=== PATIENT | female | born 1960 | race Caucasian/White ===

== ENCOUNTER 2025-04-17 12:21 | Inpatient (IN) | payer MEDICARE, OTHER ==
--- NOTE | 2025-04-17 12:29 | ERPHSYRPT ---
- History of Present Illness Time Seen by Provider: 04/17/25 12:24 Historian: patient, EMS Exam Limitations: no limitations Physician History: 64-year-old female presents to the emergency room with abdominal pain and nausea patient reports the pain started last night she reports she has a hernia that she has not had repaired she is having pain in the hernia site she reports she feels like it is exploding in her abdomen denies any diarrhea denies any chest pain or shortness of breath denies any fevers or chills denies any urinary symptoms patient arrived by EMS she has been given Toradol IV now in ED for further eval Timing/Duration: yesterday Activities at Onset: none Abdominal Pain Onset Location: RLQ Pain Radiation: no radiation Severity of Pain-Max: mild Severity of Pain-Current: mild Modifying Factors: Worsens With: lying down, vomiting, position Allergies/Adverse Reactions: Penicillins Allergy (Verified 04/17/25 12:30) Home Medications: Albuterol 2.5 mg/3 ml Neb [Proventil 2.5 mg/3 ml Neb] 3 ml IH Q4HPRN PRN 04/17/25 [History] Albuterol Sulfate [Albuterol Sulfate Hfa] 2 puffs IH Q6HPRN PRN 04/17/25 [History] Azelastine/Fluticasone [Azelastin-Flutic 137-50Mcg Spr] 1 spray NS DAILY 04/17/25 [History] Budesonide/Formoterol Fumarate [Budesonide-Formoterol 160-4.5] 2 puffs IH BID 04/17/25 [History] Buspirone HCl 15 mg PO TID 04/17/25 [History] Cholecalciferol (Vitamin D3) [Vitamin D3] 1 tab PO DAILY 04/17/25 [History] Clonidine HCl 0.1 mg [Clonidine 0.1 mg Tablet] 0.1 mg PO HS 04/17/25 [History] Fluoxetine HCl 60 mg PO DAILY 04/17/25 [History] Fluticasone Furoate 2 spray IH DAILY 04/17/25 [History] Furosemide [Lasix] 20 mg PO DAILY 04/17/25 [History] Guaifenesin 600 mg ER [Mucinex 600MG ER Tabs] 1,200 mg PO BID 04/17/25 [History] Loratadine 10 mg [Claritin 10 mg] 10 mg PO DAILY 04/17/25 [History] Montelukast Sodium 10 mg [Singulair 10 MG] 10 mg PO DAILY 04/17/25 [History] Pantoprazole 20 mg [Protonix 20MG Tablet] 20 mg PO DAILY 04/17/25 [History] Potassium Chloride 40 meq PO DAILY 04/17/25 [History] Roflumilast [Daliresp] 500 mcg PO DAILY 04/17/25 [History] Simvastatin 20Mg [Zocor 20Mg] 20 mg PO QPM 04/17/25 [History] Theophylline Anhydrous [Theophylline ER] 300 mg PO BID 04/17/25 [History] Tiotropium [place] Inhaler [Spiriva 18 Mcg/Cap Inhaler] 1 cap IH DINNER 04/17/25 [History] - Review of Systems Constitutional: No Fever, No Chills Eyes: No Symptoms Ears, Nose, & Throat: No Symptoms Respiratory: No Cough, No Dyspnea Cardiac: No Chest Pain, No Edema, No Syncope Abdominal/Gastrointestinal: Abdominal Pain, Nausea Genitourinary Symptoms: No Dysuria Musculoskeletal: No Back Pain, No Neck Pain Skin: No Rash Neurological: No Dizziness, No Focal Weakness, No Sensory Changes Psychological: No Symptoms Endocrine: No Symptoms All Other Systems: Reviewed and Negative - Nursing Vital Signs Nursing Vital Signs: Initial Vital Signs Temperature 97.8 F 04/17/25 12:24 Pulse Rate 91 H 04/17/25 12:24 Respiratory Rate 20 04/17/25 12:24 Blood Pressure 167/130 04/17/25 12:24 O2 Sat by Pulse Oximetry 98 04/17/25 12:24 Pain Scale Pain Intensity 6 - Physical Exam General Appearance: no apparent distress, alert Eye Exam: PERRL/EOMI, eyes nml inspection Ears, Nose, Throat Exam: normal ENT inspection, pharynx normal, moist mucous membranes Neck Exam: normal inspection, non-tender, supple, full range of motion Respiratory Exam: normal breath sounds, lungs clear, No respiratory distress Cardiovascular Exam: regular rate/rhythm, normal heart sounds Gastrointestinal/Abdomen Exam: hernia, other (Large abdomen is obese with a hernia to the right lower quadrant), No tenderness, No mass Back Exam: normal inspection, normal range of motion, No CVA tenderness, No vertebral tenderness Extremity Exam: normal inspection, normal range of motion, pelvis stable Neurologic Exam: alert, oriented x 3, cooperative, normal mood/affect, nml cerebellar function, sensation nml, No motor deficits Skin Exam: normal color, warm, dry SpO2 Interpretation: normal SpO2: 98 O2 Delivery: Room Air - Course Nursing assessment & vital signs reviewed: Yes EKG Interpreted by Me: RATE (88), Sinus Rhythm (88), Non-specific ST Changes (no STEMI) Ordered Tests: Active Orders 24 hr Category Date Time Status Bedrest ROUTINE Activity 04/17/25 15:24 Active Admit as Inpatient ROUTINE Care 04/17/25 15:24 Active Call Admit Doctor for Orders ON ADMISSION Care 04/17/25 15:24 Active Speedometer Inspector ROUTINE Care 04/17/25 15:24 Active Code Status Order ROUTINE Care 04/17/25 15:24 Active EKG-ER Only STAT Care 04/17/25 15:11 Completed IV Insertion STAT Care 04/17/25 12:25 Active Ice Pack, Apply PRN Care 04/17/25 12:27 Active NGT [Gastric Tube Insertion] STAT Care 04/17/25 14:58 Active POCT Glucose Check ONCE Care 04/17/25 15:24 Active Telemetry q6h Care 04/17/25 15:24 Active Telemetry q6h Care 04/17/25 15:24 Active ACO SDOH Referral ONCE Cons 04/17/25 12:42 Active NPO Diet 04/17/25 15:24 Active ABDOMEN AND PELVIS W CONTRAST [CT] Stat Exams 04/17/25 12:25 Completed CHEST 1 VIEW (PORTABLE) Stat Exams 04/17/25 14:55 Taken BLOOD CULTURE Stat Lab 04/17/25 15:31 Received BLOOD CULTURE Stat Lab 04/17/25 15:55 Ordered CBC W DIFF Stat Lab 04/17/25 12:35 Completed CMP Stat Lab 04/17/25 12:35 Completed LIPASE Stat Lab 04/17/25 12:35 Completed Lactic Acid Stat Lab 04/17/25 12:25 Completed PROTIME WITH INR Stat Lab 04/17/25 15:31 Received PTT Stat Lab 04/17/25 15:31 Received UA W/RFX UR CULTURE Stat Lab 04/17/25 12:25 Received Pulse Oximetry CONTINUOUS RT 04/17/25 15:24 Active Respiratory Therapy Consult ONCE RT 04/17/25 15:24 Completed Transfer Order Routine Transfer 04/17/25 Ordered Medication Summary Generic Name Dose Route Start Last Admin Trade Name Jamal PRN Reason Stop Dose Admin Sodium Chloride 1,000 mls @ 100 mls/hr 04/17/25 15:00 04/17/25 15:25 Sodium Chloride 0.9% 1000 Ml IV 05/17/25 14:59 100 mls/hr .Q10H THANIA Administration Discontinued Medications Generic Name Dose Route Start Last Admin Trade Name Jamal PRN Reason Stop Dose Admin Sodium Chloride 1,000 mls @ 999 mls/hr 04/17/25 12:25 04/17/25 13:41 Sodium Chloride 0.9% 1000 Ml IV 04/17/25 13:25 Infused .Q1H1M STA Infusion Sodium Chloride Confirm 04/17/25 12:33 Sodium Chloride 0.9% 1000 Ml Administered 04/17/25 12:34 Dose 1,000 mls @ ud .ROUTE .STK-MED ONE Ceftriaxone Sodium 1 gm in 100 mls @ 200 mls/hr 04/17/25 14:48 04/17/25 16:07 Rocephin 1 Gm / 100 Ml Nacl IV 04/17/25 15:17 200 mls/hr STAT ONE Administration Metronidazole 500 mg in 100 mls @ 200 mls/hr 04/17/25 14:48 Flagyl 500 Mg Ivpb IV 04/17/25 15:17 STAT STA Ceftriaxone Sodium Confirm 04/17/25 15:10 Rocephin 1 Gm / 100 Ml Nacl Administered 04/17/25 15:11 Dose 1 gm in 100 mls @ ud IV .STK-MED ONE Morphine Sulfate 2 mg 04/17/25 12:25 04/17/25 12:38 Morphine Sulfate 2 Mg/Ml Inj IV 04/17/25 12:26 2 mg STAT ONE Administration Morphine Sulfate Confirm 04/17/25 12:32 Morphine Sulfate 2 Mg/Ml Inj Administered 04/17/25 12:33 Dose 2 mg .ROUTE .STK-MED ONE Morphine Sulfate 4 mg 04/17/25 14:48 04/17/25 14:53 Morphine Sulfate 4 Mg/Ml Injection IV 04/17/25 14:49 4 mg STAT ONE Administration Morphine Sulfate Confirm 04/17/25 14:52 Morphine Sulfate 4 Mg/Ml Injection Administered 04/17/25 14:53 Dose 4 mg .ROUTE .STK-MED ONE Ondansetron HCl 4 mg 04/17/25 12:25 04/17/25 12:38 Ondansetron Hcl 4 Mg/2 Ml Vial IV 04/17/25 12:26 4 mg STAT ONE Administration Ondansetron HCl Confirm 04/17/25 12:32 Ondansetron Hcl 4 Mg/2 Ml Vial Administered 04/17/25 12:33 Dose 4 mg .ROUTE .STK-MED ONE Lab/Rad Data: Laboratory Result Diagrams 04/17/25 12:35 04/17/25 12:35 Laboratory Results 04/17/25 04/17/25 04/17/25 Range/Units 12:35 12:35 12:25 WBC 14.4 H (3.98-10.04) x10^3/uL RBC 4.31 (3.93-5.22) x10^6/uL Hgb 13.6 (11.2-15.7) g/dL Hct 42.4 (34.1-44.9) % MCV 98.4 H (79.4-94.8) fL MCH 31.6 (25.6-32.2) pg MCHC 32.1 L (32.2-35.5) g/dL RDW 13.3 (11.7-14.4) % Plt Count 219 (182-369) x10^3/uL MPV 9.8 (9.4-12.3) fL Gran % 92.6 H (34.0-71.1) % Immature Gran % (Auto) 0.6 H (0.001-0.429) % Nucleat RBC Rel Count 0.0 (0.00-0.2) % Eos # (Auto) 0.01 L (0.04-0.36) x10^3/uL Immature Gran # (Auto) 0.09 H (0.001-0.031) x10^3u/L Absolute Lymphs (auto) 0.50 L (1.18-3.74) x10^3/uL Absolute Monos (auto) 0.42 (0.24-0.86) x10^3/uL Absolute Nucleated RBC 0.00 (0.00-0.012) x10^3u/L Lymphocytes % 3.5 L (19.3-51.7) % Monocytes % 2.9 L (4.7-12.5) % Eosinophils % 0.1 L (0.7-5.8) % Basophils % 0.3 (0.1-1.2) % Absolute Granulocytes 13.29 H (1.56-6.13) x10^3/uL Basophils # 0.05 (0.01-0.08) x10^3/uL Sodium 139 (135-145) mmol/L Potassium 4.0 (3.5-5.1) mmol/L Chloride 98 (98-107) mmol/L Carbon Dioxide 32 H (22-30) mmol/L Anion Gap 12.1 (5-15) MEQ/L BUN 18 H (7-17) mg/dL Creatinine 0.63 (0.52-1.04) mg/dL Estimated GFR 99.6 ML/MIN Glucose 158 H (74-106) mg/dL Lactic Acid 1.0 (0.4-2.0) Calcium 9.9 (8.4-10.2) mg/dL Total Bilirubin 0.60 (0.2-1.3) mg/dL AST 20 (14-36) U/L ALT 11 (0-35) U/L Alkaline Phosphatase 99 (38-126) U/L Serum Total Protein 8.1 (6.3-8.2) g/dL Albumin 4.5 (3.5-5.0) g/dL Lipase 35 (23-300) U/L Slides for Path Review YES - Progress Progress Note: 04/17/25 15:00 Discussed case with Sang Mendes patient records recommend to have IV fluids antibiotics NG tube placement for an incarcerated hernia will need to go to the OR 04/17/25 15:22 Spoke with the hospitalist Dr. Zafar who accepts the patient to their service - Departure Departure Disposition: In-patient Admission Clinical Impression: Incarcerated hernia Condition: Good Critical Care Time: No
[2025-04-17] MEDS ORDERED: Zofran 4 MG/2 ML VIAL ONE (12:32)
[2025-04-17] MEDS ORDERED: MORPHINE SULFATE 2 MG INJ ONE (12:32)
[2025-04-17] MEDS: Zofran 4 MG/2 ML VIAL IV ONE (12:38)
[2025-04-17] MEDS: MORPHINE SULFATE 2 MG INJ IV ONE (12:38)
[2025-04-17 12:41] LABS: BASOPHIL % 0.3 % (0.1-1.2); Basophil (Absolute #) 0.05 x10^3/uL (0.01-0.08); Eosinophil (Absolute #) 0.01 x10^3/uL (0.04-0.36); Hematocrit 42.4 % (34.1-44.9); Hemoglobin 13.6 g/dL (11.2-15.7); IMMATURE GRAN # 0.09 x10^3u/L (0.001-0.031); IMMATURE GRAN % 0.6 % (0.001-0.429); Lymphocyte (Absolute #) 0.50 x10^3/uL (1.18-3.74); Mean Corpuscular Hemoglobin 31.6 pg (25.6-32.2); Mean Corpuscular Hgb Concent. 32.1 g/dL (32.2-35.5); Monocyte (Absolute #) 0.42 x10^3/uL (0.24-0.86); NUCLEATED RBC # 0.00 x10^3u/L (0.00-0.012); NUCLEATED RBC % 0.0 % (0.00-0.2); Platelet Count 219 x10^3/uL (182-369); Red Blood Count 4.31 x10^6/uL (3.93-5.22); White Blood Count 14.4 x10^3/uL (3.98-10.04)
[2025-04-17 12:56] LABS: Calcium 9.9 mg/dL (8.4-10.2); Carbon Dioxide 32.0 mmol/L (22-30); Creatinine 1 0.63 mg/dL (0.52-1.04); EST GLOMERULAR FILTRATION RATE 99.6 ML/MIN; Glucose 158.0 mg/dL (74-106); Potassium 4.0 mmol/L (3.5-5.1); SGOT/AST 20.0 U/L (14-36); SGPT/ALT 11.0 U/L (0-35); Total Protein 8.1 g/dL (6.3-8.2)
[2025-04-17 14:30] LABS: Slide Review 1 YES
--- NOTE | 2025-04-17 14:30 | XRAY ---
CLINICAL HISTORY: abd pain, hernia r/o complication COMPARISON: No prior studies available for comparison. TECHNIQUE: CT of the abdomen and pelvis was performed with contrast 80 cc Isovue 370, with the following protocol: axial images with, and reconstructed coronal and sagittal images. One of the following dose reduction techniques was utilized for this exam: Automated exposure control, adjustment of the mA and/or kV according to patient size, and use of iterative reconstruction. FINDINGS: Lower chest cuts: Bilateral emphysema with right basal atelectatic changes, sequel of prior inflammatory process. Abdomen: Liver: Diffuse hypoattenuation of the liver parenchyma. No focal lesions, cysts, or masses were identified. Hepatic vasculature and biliary ducts are unremarkable. Gallbladder and Biliary System: surgically removed. The common bile duct is normal in caliber without dilation. Pancreas: Pancreatic head, body, and tail are visualized and appear normal in size and density. No pancreatic masses or calcifications were noted. The pancreatic duct is not dilated. Spleen: Normal in size, shape, and density. No splenic lesions or masses were identified. Appendix: Not visualized. Kidneys and Adrenal Glands: Both kidneys are normal in size, shape, and position. Cortical thickness is within normal limits. No renal calculi or hydronephrosis. Adrenal glands are unremarkable with no evidence of masses or hyperplasia. Pelvis: Urinary Bladder: Normal in contour and wall thickness. No intraluminal lesions identified. Uterus: Normal in size and contour. No masses or abnormal thickening. Ovaries: Not well visualized, but no gross abnormalities noted. Vagina: Normal in contour and wall thickness. Cervix: No evidence of mass or abnormal thickening. Peritoneal and Retroperitoneal Structures: No free fluid or abnormal fluid collections were identified within the abdomen or pelvis. No lymphadenopathy was noted. Bowel: A large right-sided inguinal hernia sac with fat and bowel content. it shows mild intrahernial fatty stranding as well as dilatation of the jejunal bowel segment seen inside, no evidence of intrahernial sac free fluid collection, The efferent and afferent collapsed bowel loops are seen along the hernial orifice, in keeping with an incarcerated right-sided inguinal hernia with subsequent dilatation of the proximal jejunal bowel loops and collapse of ileal bowel loops and whole colon. There is normal mural enhancement of the incarcerated herniated small bowel segment; however, the appearance of two collapsed efferent and afferent bowel loops at the entry point of the hernia could result in a form of closed-loop obstruction. A tiny fat-containing non-complicated periumbilical hernia. Minimal cirfumerntial unform mural thickening of pylorus likely of inflammtory origin. Multiple non complicated colonic diverticulosi. SLiding hiatus hernia is joshua noted. Bones and Soft Tissues: Diffuse osteopenia and spondylosis of scanned spine. Intrathecal tube is noted.correlate clinically No fractures or abnormal masses were identified. IMPRESSION: 1. Picture suggestive of right-sided incarcerated inguinal hernia with omentum and small bowel content and subsequent small bowel obstruction. However, the appearance of two collapsed efferent and afferent bowel loops at the entry point of the hernia could result in a form of closed-loop obstruction, together with luminal dilatation and fatty stranding within the hernia sac ( however, there is normal enhancement of the bowel wall), which can suggest impending strangulation. Advise urgent surgical consultation. 2. A tiny fat-containing non-complicated periumbilical hernia. 3. Minimal circumferential uniform mural thickening of the pylorus is likely of inflammatory origin. Correlate clinically and further UGE if clinically warranted. 4. Multiple non-complicated colonic diverticulosis. 5. A small sliding hiatus hernia. 6. Fatty liver. 7. Bilateral emphysema with bilateral lower lobar more along right basal atelectatic changes, sequel of prior inflammatory process. Electronically Signed by: Otilio Will MD. (04/17/2025 14:28:16 EST)
[2025-04-17] MEDS ORDERED: MORPHINE SULFATE 4 MG INJ ONE (14:52)
[2025-04-17] MEDS: MORPHINE SULFATE 4 MG INJ IV ONE (14:53)
[2025-04-17] MEDS ORDERED: ROCEPHIN 1 GM / 100 ML NaCl 1 GM/100 ML IVPB IV ONE (15:10)
[2025-04-17] MEDS: ROCEPHIN 1 GM / 100 ML NaCl 1 GM/100 ML IVPB IV ONE (16:07)
[2025-04-17 16:12] LABS: INR 0.95 (0.8-3.0); PROTIME 10.7 SECONDS (9.4-12.5); PTT 26.2 SECONDS (25.1-36.5)
--- NOTE | 2025-04-17 16:18 | PCM.HP ---
<RENETTA CERDA - Last Filed: 04/17/25 16:13> History of Present Illness - Chief Complaint Chief Complaint: incarcerated hernia Date: 04/17/25 History of Present Illness: is a 64 year old female with a past medical history of COPD (on 4L oxygen baseline), asthma, depression, lung cancer treated with radiation in 2023, and an eight-year history of a known but unrepaired right inguinal hernia, active smoker, approximately half a pack per day who presented to the ED on 04-17-25 with acute right lower quadrant pain that began this morning. She describes the pain as sharp, constant, and 10/10 on the numerical pain scale. The pain is centered at her chronic hernia site and feels to her as though something is exploding inside. She also reported nausea, vomiting, and diarrhea, along with increased shortness of breath above her usual baseline. She denied fever, chills, or urinary symptoms. On arrival to the ED, she was significantly hypertensive at 180/105 and maintained on four liters of oxygen. Initial labs remarkable for leukocytosis with WBC 14.4, CO2 32, BUN 18. CT abdomen/pelvis revealed a right-sided incarcerated inguinal hernia containing omentum and small bowel with associated small bowel obstruction. Radiology described collapsed afferent and efferent loops at the hernia neck concerning for a developing closed-loop obstruction with impending strangulation, though bowel wall enhancement remained preserved. Additional findings included a tiny non-complicated periumbilical hernia, mild inflammatory pyloric thickening, uncomplicated colonic diverticulosis, fatty liver, a small sliding hiatal hernia, and emphysematous changes with right- predominant basal atelectasis consistent with her COPD. The case was discussed with on-call surgeon Dr. Sang Mnedes, who recommended NG tube placement, continuation of IV fluids and antibiotics, and urgent operative repair tonight. She received IV morphine for pain, ondansetron for nausea, a one-liter IV fluid bolus, and was started on IV ceftriaxone and metronidazole. - Review of Systems Constitutional: No Symptoms Eyes: No Symptoms Ears, Nose, & Throat: No Symptoms Respiratory: Short Of Breath Cardiac: No Symptoms Abdominal/Gastrointestinal: Abdominal Pain (RLQ), Nausea, Vomiting, Diarrhea Genitourinary Symptoms: No Symptoms Musculoskeletal: No Symptoms Neurological: No Symptoms Psychological: No Symptoms Endocrine: No Symptoms Hematologic/Lymphatic: No Symptoms Immunological/Allergic: No Symptoms Medications & Allergies Home Medications: Home Medication List Albuterol 2.5 mg/3 ml Neb [Proventil 2.5 mg/3 ml Neb] 3 ml IH Q4HPRN PRN 04/17/25 [History Confirmed 04/17/25] Albuterol Sulfate [Albuterol Sulfate Hfa] 2 puffs IH Q6HPRN PRN 04/17/25 [History Confirmed 04/17/25] Azelastine/Fluticasone [Azelastin-Flutic 137-50Mcg Spr] 1 spray NS DAILY 04/17/25 [History Confirmed 04/17/25] Budesonide/Formoterol Fumarate [Budesonide-Formoterol 160-4.5] 2 puffs IH BID 04/17/25 [History Confirmed 04/17/25] Buspirone HCl 15 mg PO TID 04/17/25 [History Confirmed 04/17/25] Cholecalciferol (Vitamin D3) [Vitamin D3] 1 tab PO DAILY 04/17/25 [History Confirmed 04/17/25] Clonidine HCl 0.1 mg [Clonidine 0.1 mg Tablet] 0.1 mg PO HS 04/17/25 [History Confirmed 04/17/25] Fluoxetine HCl 60 mg PO DAILY 04/17/25 [History Confirmed 04/17/25] Fluticasone Furoate 2 spray IH DAILY 04/17/25 [History Confirmed 04/17/25] Furosemide [Lasix] 20 mg PO DAILY 04/17/25 [History Confirmed 04/17/25] Guaifenesin 600 mg ER [Mucinex 600MG ER Tabs] 1,200 mg PO BID 04/17/25 [History Confirmed 04/17/25] Ibuprofen 800 mg PO TIDPRN PRN 04/17/25 [History Confirmed 04/17/25] Loratadine 10 mg [Claritin 10 mg] 10 mg PO DAILY 04/17/25 [History Confirmed 04/17/25] Montelukast Sodium 10 mg [Singulair 10 MG] 10 mg PO DAILY 04/17/25 [History Confirmed 04/17/25] Pantoprazole 20 mg [Protonix 20MG Tablet] 20 mg PO DAILY 04/17/25 [History Confirmed 04/17/25] Potassium Chloride 40 meq PO DAILY 04/17/25 [History Confirmed 04/17/25] Roflumilast [Daliresp] 500 mcg PO DAILY 04/17/25 [History Confirmed 04/17/25] Simvastatin 20Mg [Zocor 20Mg] 20 mg PO QPM 04/17/25 [History Confirmed 04/17/25] Theophylline Anhydrous [Theophylline ER] 300 mg PO BID 04/17/25 [History Confirmed 04/17/25] Tiotropium Stitzer Inhaler [Spiriva 18 Mcg/Cap Inhaler] 1 cap IH DINNER 04/17/25 [History Confirmed 04/17/25] Allergies/Adverse Reactions: Allergies Allergy/AdvReac Type Severity Reaction Status Date / Time Penicillins Allergy Verified 04/17/25 12:30 - Past Medical History Past Medical History: Yes Respiratory History: COPD GI Medical History: Hernia Pyscho-Social History: Depression Comment: patient states she had a spot to right lung, patient did not have biopsy; however, patient had radiation treatments and states the spot is now gone - Past Surgical History Past Surgical History: Yes GI Surgical History: Cholecystectomy Female Surgical History: Section Significant Family History: cancer, stroke - Social History Smoking Status: Current every day smoker (1/2 ppd) Exposure to second hand smoke: Yes Alcohol: None Drug Use: none - Social Determinants of Health Will the patient participate in the screening: Yes Do you worry about a steady place to live?: Yes Do you have any problems with any of the following?: Pest (bugs,ants,or mice), Mold, Other In the past 12 months,have you had to go without utilities?: No Have you or anyone in your house had to go without enough: No Transportation Issues: No Has anyone in your support network made you feel unsafe?: No - Physical Exam Vital Signs: Vital Signs - 24 hr Temp Pulse Resp BP BP Pulse Ox 04/17/25 16:07 98 04/17/25 15:40 80 22 158/90 97 04/17/25 15:35 97 04/17/25 15:31 97 04/17/25 15:00 152/109 97 04/17/25 14:30 160/97 95 04/17/25 14:00 95 H 4 L 180/105 83 L 04/17/25 13:40 171/115 95 04/17/25 13:39 97 04/17/25 13:00 165/111 04/17/25 12:30 91 H 167/130 97 04/17/25 12:24 97.8 F 91 H 20 167/130 98 General Appearance: no apparent distress Neurologic Exam: alert, oriented x 3, cooperative Eye Exam: PERRL/EOMI Ears, Nose, Throat Exam: normal ENT inspection Neck Exam: normal inspection Respiratory Exam: crackles/rales Cardiovascular Exam: regular rate/rhythm, normal heart sounds Gastrointestinal/Abdomen Exam: hernia (RLQ) Pelvic Exam: not done Rectal Exam: deferred Back Exam: normal inspection Extremity Exam: normal inspection Skin Exam: normal color Results - Labs Lab/Micro Results: Lab Results-Last 24 Hours 04/17/25 04/17/25 04/17/25 Range/Units 12:25 12:35 12:35 WBC 14.4 H (3.98-10.04) x10^3/uL RBC 4.31 (3.93-5.22) x10^6/uL Hgb 13.6 (11.2-15.7) g/dL Hct 42.4 (34.1-44.9) % MCV 98.4 H (79.4-94.8) fL MCH 31.6 (25.6-32.2) pg MCHC 32.1 L (32.2-35.5) g/dL RDW 13.3 (11.7-14.4) % Plt Count 219 (182-369) x10^3/uL MPV 9.8 (9.4-12.3) fL Gran % 92.6 H (34.0-71.1) % Immature Gran % (Auto) 0.6 H (0.001-0.429) % Nucleat RBC Rel Count 0.0 (0.00-0.2) % Eos # (Auto) 0.01 L (0.04-0.36) x10^3/uL Immature Gran # (Auto) 0.09 H (0.001-0.031) x10^3u/L Absolute Lymphs (auto) 0.50 L (1.18-3.74) x10^3/uL Absolute Monos (auto) 0.42 (0.24-0.86) x10^3/uL Absolute Nucleated RBC 0.00 (0.00-0.012) x10^3u/L Lymphocytes % 3.5 L (19.3-51.7) % Monocytes % 2.9 L (4.7-12.5) % Eosinophils % 0.1 L (0.7-5.8) % Basophils % 0.3 (0.1-1.2) % Absolute Granulocytes 13.29 H (1.56-6.13) x10^3/uL Basophils # 0.05 (0.01-0.08) x10^3/uL Sodium 139 (135-145) mmol/L Potassium 4.0 (3.5-5.1) mmol/L Chloride 98 (98-107) mmol/L Carbon Dioxide 32 H (22-30) mmol/L Anion Gap 12.1 (5-15) MEQ/L BUN 18 H (7-17) mg/dL Creatinine 0.63 (0.52-1.04) mg/dL Estimated GFR 99.6 ML/MIN Glucose 158 H (74-106) mg/dL Lactic Acid 1.0 (0.4-2.0) Calcium 9.9 (8.4-10.2) mg/dL Total Bilirubin 0.60 (0.2-1.3) mg/dL AST 20 (14-36) U/L ALT 11 (0-35) U/L Alkaline Phosphatase 99 (38-126) U/L Serum Total Protein 8.1 (6.3-8.2) g/dL Albumin 4.5 (3.5-5.0) g/dL Lipase 35 (23-300) U/L Slides for Path Review YES Microbiology 04/17/25 15:55 Blood Culture Gram Stain - Final Blood Not Reportable - Radiology Impressions Radiology Exams & Impressions: Radiology Procedures Category Date Time Status ABDOMEN AND PELVIS W CONTRAST [CT] Stat Exams 04/17/25 12:25 Completed CHEST 1 VIEW (PORTABLE) Stat Exams 04/17/25 14:55 Taken Assessment/Plan (1) Incarcerated hernia Current Visit: Yes Status: Acute Assessment & Plan: -NPO. -NG tube placement for decompression per surgery. -Continue IV ceftriaxone + metronidazole. -IVF -Surgery consulted Eva Mendes- plan for surgical intervention this evening -Strict I/O and serial abdominal examinations. -Pain control -supplemental oxygen - baseline 4L - titrate as needed to maintain goal spo2> 89% Code(s): K46.0 - UNSP ABDOMINAL HERNIA WITH OBSTRUCTION, WITHOUT GANGRENE (2) Abdominal pain Current Visit: Yes Status: Acute Assessment & Plan: -2/2 to incarcerated hernia see plan above Code(s): R10.9 - UNSPECIFIED ABDOMINAL PAIN (3) Nausea vomiting and diarrhea Current Visit: Yes Status: Acute Assessment & Plan: -2/2 to incarcerated hernia -Antiemetics as needed. -NG tube decompression -Fluid and electrolyte monitoring; replace as needed Code(s): R11.2 - NAUSEA WITH VOMITING, UNSPECIFIED; R19.7 - DIARRHEA, UNSPECIFIED (4) Leukocytosis Current Visit: Yes Status: Acute Assessment & Plan: -Trend CBC daily -Continue IV ceftriaxone/flagyl -Expect improvement post-surgical correction. Code(s): D72.829 - ELEVATED WHITE BLOOD CELL COUNT, UNSPECIFIED (5) COPD (chronic obstructive pulmonary disease) Current Visit: Yes Status: Acute Assessment & Plan: -Maintain at baseline 4L O2; titrate to SpO2 > 89%. -Continue home meds -Incentive spirometry as tolerated. -Avoid sedatives that worsen respiratory drive. -Resume inhalers/nebulizers as appropriate. (6) Depression Current Visit: Yes Status: Acute Assessment & Plan: -Continue home meds s/p surgery Code(s): F32.A - DEPRESSION, UNSPECIFIED (7) History of lung cancer Current Visit: Yes Status: Acute Assessment & Plan: -s/p radiation 2023 Code(s): Z85.118 - PERSONAL HISTORY OF MALIGNANT NEOPLASM OF BRONCHUS AND LUNG (8) Smoker Current Visit: Yes Status: Acute Assessment & Plan: -Smokes 1/2 PPD advised cessation -Nicotine patch while IP VTE: SCD for now PPI: protonix Dispo: 2-3 days pending surgery eval Plan of care time spent > 40 mins Code(s): F17.200 - NICOTINE DEPENDENCE, UNSPECIFIED, UNCOMPLICATED Telemedicine Encounter - Telemedicine Encounter Telemedicine Encounter: "The entirety of this encounter was performed via Telemedicine" This visit was performed using real-time audio and video connection between my location and thepatients locationwith the assistance of a surrogateat the patients location. Written or verbal consent was obtained from the patient/guardian to perform this visit using[employer] technology. Any patient questions regarding the telemedicine interaction were answered. <CHEL PAIGE - Last Filed: 04/17/25 21:52> History of Present Illness - Chief Complaint History of Present Illness: is a 64 year old female. - Physical Exam Vital Signs: Vital Signs - 24 hr Temp Pulse Resp BP BP Pulse Ox 04/17/25 21:00 91 H 23 143/90 96 04/17/25 20:59 18 04/17/25 20:45 91 H 18 155/102 92 L 04/17/25 20:30 98.5 F 91 H 19 168/97 97 04/17/25 20:23 93 L 04/17/25 17:16 88 18 146/80 98 04/17/25 16:58 88 18 98 04/17/25 16:31 98.2 F 88 22 146/80 92 L 04/17/25 16:07 98 04/17/25 16:03 98.2 F 88 22 146/80 92 L 04/17/25 15:40 80 22 158/90 97 04/17/25 15:35 97 04/17/25 15:31 97 04/17/25 15:00 152/109 97 04/17/25 14:30 160/97 95 04/17/25 14:00 95 H 4 L 180/105 83 L 04/17/25 13:40 171/115 95 04/17/25 13:39 97 04/17/25 13:00 165/111 04/17/25 12:30 91 H 167/130 97 04/17/25 12:24 97.8 F 91 H 20 167/130 98 Results - Labs Lab/Micro Results: Lab Results-Last 24 Hours 04/17/25 04/17/25 04/17/25 Range/Units 12:25 12:25 12:35 WBC 14.4 H (3.98-10.04) x10^3/uL RBC 4.31 (3.93-5.22) x10^6/uL Hgb 13.6 (11.2-15.7) g/dL Hct 42.4 (34.1-44.9) % MCV 98.4 H (79.4-94.8) fL MCH 31.6 (25.6-32.2) pg MCHC 32.1 L (32.2-35.5) g/dL RDW 13.3 (11.7-14.4) % Plt Count 219 (182-369) x10^3/uL MPV 9.8 (9.4-12.3) fL Gran % 92.6 H (34.0-71.1) % Immature Gran % (Auto) 0.6 H (0.001-0.429) % Nucleat RBC Rel Count 0.0 (0.00-0.2) % Eos # (Auto) 0.01 L (0.04-0.36) x10^3/uL Immature Gran # (Auto) 0.09 H (0.001-0.031) x10^3u/L Absolute Lymphs (auto) 0.50 L (1.18-3.74) x10^3/uL Absolute Monos (auto) 0.42 (0.24-0.86) x10^3/uL Absolute Nucleated RBC 0.00 (0.00-0.012) x10^3u/L Lymphocytes % 3.5 L (19.3-51.7) % Monocytes % 2.9 L (4.7-12.5) % Eosinophils % 0.1 L (0.7-5.8) % Basophils % 0.3 (0.1-1.2) % Absolute Granulocytes 13.29 H (1.56-6.13) x10^3/uL Basophils # 0.05 (0.01-0.08) x10^3/uL PT (9.4-12.5) SECONDS INR (0.8-3.0) APTT (25.1-36.5) SECONDS Sodium (135-145) mmol/L Potassium (3.5-5.1) mmol/L Chloride (98-107) mmol/L Carbon Dioxide (22-30) mmol/L Anion Gap (5-15) MEQ/L BUN (7-17) mg/dL Creatinine (0.52-1.04) mg/dL Estimated GFR ML/MIN Glucose (74-106) mg/dL POC Glucometer (74 to 106) mg/dL Hemoglobin A1c (4.5-6.0) % Lactic Acid 1.0 (0.4-2.0) Calcium (8.4-10.2) mg/dL Total Bilirubin (0.2-1.3) mg/dL AST (14-36) U/L ALT (0-35) U/L Alkaline Phosphatase (38-126) U/L Serum Total Protein (6.3-8.2) g/dL Albumin (3.5-5.0) g/dL Lipase (23-300) U/L Urine Color Yellow (Yellow) Urine Appearance Clear (Clear) Urine pH 6.5 (4.6-8.0) Ur Specific [place] >=1.030 A (1.005-1.030) Urine Protein 100 A (Negative) Urine Glucose (UA) Negative (Negative) mg/dL Urine Ketones Negative (Negative) Urine Blood Moderate A (Negative) Urine Nitrite Positive A (Negative) Urine Bilirubin Negative (Negative) Urine Urobilinogen 0.2 (0.2) mg/dL Ur Leukocyte Esterase Negative (Negative) U Hyaline Cast (Auto) NONE SEEN (0-2) /LPF Urine Microscopic RBC 21-50 A (0-5) /HPF Urine Microscopic WBC 11-20 A (0-5) /HPF Ur Epithelial Cells Rare (None Seen) /HPF Urine Bacteria Many A (None Seen) /HPF Urine Culture Reflexed YES (NO) Slides for Path Review YES ABO Group Rh Factor Antibody Screen (NEGATIVE) 04/17/25 04/17/25 04/17/25 Range/Units 12:35 15:30 15:31 WBC (3.98-10.04) x10^3/uL RBC (3.93-5.22) x10^6/uL Hgb (11.2-15.7) g/dL Hct (34.1-44.9) % MCV (79.4-94.8) fL MCH (25.6-32.2) pg MCHC (32.2-35.5) g/dL RDW (11.7-14.4) % Plt Count (182-369) x10^3/uL MPV (9.4-12.3) fL Gran % (34.0-71.1) % Immature Gran % (Auto) (0.001-0.429) % Nucleat RBC Rel Count (0.00-0.2) % Eos # (Auto) (0.04-0.36) x10^3/uL Immature Gran # (Auto) (0.001-0.031) x10^3u/L Absolute Lymphs (auto) (1.18-3.74) x10^3/uL Absolute Monos (auto) (0.24-0.86) x10^3/uL Absolute Nucleated RBC (0.00-0.012) x10^3u/L Lymphocytes % (19.3-51.7) % Monocytes % (4.7-12.5) % Eosinophils % (0.7-5.8) % Basophils % (0.1-1.2) % Absolute Granulocytes (1.56-6.13) x10^3/uL Basophils # (0.01-0.08) x10^3/uL PT 10.7 (9.4-12.5) SECONDS INR 0.95 (0.8-3.0) APTT 26.2 (25.1-36.5) SECONDS Sodium 139 (135-145) mmol/L Potassium 4.0 (3.5-5.1) mmol/L Chloride 98 (98-107) mmol/L Carbon Dioxide 32 H (22-30) mmol/L Anion Gap 12.1 (5-15) MEQ/L BUN 18 H (7-17) mg/dL Creatinine 0.63 (0.52-1.04) mg/dL Estimated GFR 99.6 ML/MIN Glucose 158 H (74-106) mg/dL POC Glucometer (74 to 106) mg/dL Hemoglobin A1c 5.20 (4.5-6.0) % Lactic Acid (0.4-2.0) Calcium 9.9 (8.4-10.2) mg/dL Total Bilirubin 0.60 (0.2-1.3) mg/dL AST 20 (14-36) U/L ALT 11 (0-35) U/L Alkaline Phosphatase 99 (38-126) U/L Serum Total Protein 8.1 (6.3-8.2) g/dL Albumin 4.5 (3.5-5.0) g/dL Lipase 35 (23-300) U/L Urine Color (Yellow) Urine Appearance (Clear) Urine pH (4.6-8.0) Ur Specific [place] (1.005-1.030) Urine Protein (Negative) Urine Glucose (UA) (Negative) mg/dL Urine Ketones (Negative) Urine Blood (Negative) Urine Nitrite (Negative) Urine Bilirubin (Negative) Urine Urobilinogen (0.2) mg/dL Ur Leukocyte Esterase (Negative) U Hyaline Cast (Auto) (0-2) /LPF Urine Microscopic RBC (0-5) /HPF Urine Microscopic WBC (0-5) /HPF Ur Epithelial Cells (None Seen) /HPF Urine Bacteria (None Seen) /HPF Urine Culture Reflexed (NO) Slides for Path Review ABO Group Rh Factor Antibody Screen (NEGATIVE) 04/17/25 04/17/25 04/17/25 Range/Units 15:31 16:35 19:00 WBC (3.98-10.04) x10^3/uL RBC (3.93-5.22) x10^6/uL Hgb (11.2-15.7) g/dL Hct (34.1-44.9) % MCV (79.4-94.8) fL MCH (25.6-32.2) pg MCHC (32.2-35.5) g/dL RDW (11.7-14.4) % Plt Count (182-369) x10^3/uL MPV (9.4-12.3) fL Gran % (34.0-71.1) % Immature Gran % (Auto) (0.001-0.429) % Nucleat RBC Rel Count (0.00-0.2) % Eos # (Auto) (0.04-0.36) x10^3/uL Immature Gran # (Auto) (0.001-0.031) x10^3u/L Absolute Lymphs (auto) (1.18-3.74) x10^3/uL Absolute Monos (auto) (0.24-0.86) x10^3/uL Absolute Nucleated RBC (0.00-0.012) x10^3u/L Lymphocytes % (19.3-51.7) % Monocytes % (4.7-12.5) % Eosinophils % (0.7-5.8) % Basophils % (0.1-1.2) % Absolute Granulocytes (1.56-6.13) x10^3/uL Basophils # (0.01-0.08) x10^3/uL PT (9.4-12.5) SECONDS INR (0.8-3.0) APTT (25.1-36.5) SECONDS Sodium (135-145) mmol/L Potassium (3.5-5.1) mmol/L Chloride (98-107) mmol/L Carbon Dioxide (22-30) mmol/L Anion Gap (5-15) MEQ/L BUN (7-17) mg/dL Creatinine (0.52-1.04) mg/dL Estimated GFR ML/MIN Glucose (74-106) mg/dL POC Glucometer 108 H (74 to 106) mg/dL Hemoglobin A1c (4.5-6.0) % Lactic Acid (0.4-2.0) Calcium (8.4-10.2) mg/dL Total Bilirubin (0.2-1.3) mg/dL AST (14-36) U/L ALT (0-35) U/L Alkaline Phosphatase (38-126) U/L Serum Total Protein (6.3-8.2) g/dL Albumin (3.5-5.0) g/dL Lipase (23-300) U/L Urine Color Yellow (Yellow) Urine Appearance Clear (Clear) Urine pH 5.5 (4.6-8.0) Ur Specific [place] >=1.030 A (1.005-1.030) Urine Protein 30 (Negative) Urine Glucose (UA) Negative (Negative) mg/dL Urine Ketones Negative (Negative) Urine Blood Moderate A (Negative) Urine Nitrite Positive A (Negative) Urine Bilirubin Negative (Negative) Urine Urobilinogen 0.2 (0.2) mg/dL Ur Leukocyte Esterase Negative (Negative) U Hyaline Cast (Auto) NONE SEEN (0-2) /LPF Urine Microscopic RBC 11-20 A (0-5) /HPF Urine Microscopic WBC 21-50 A (0-5) /HPF Ur Epithelial Cells None Seen (None Seen) /HPF Urine Bacteria None Seen (None Seen) /HPF Urine Culture Reflexed (NO) Slides for Path Review ABO Group O Rh Factor POSITIVE Antibody Screen NEGATIVE (NEGATIVE) 11/16/25 Range/Units 20:49 WBC (3.98-10.04) x10^3/uL RBC (3.93-5.22) x10^6/uL Hgb (11.2-15.7) g/dL Hct (34.1-44.9) % MCV (79.4-94.8) fL MCH (25.6-32.2) pg MCHC (32.2-35.5) g/dL RDW (11.7-14.4) % Plt Count (182-369) x10^3/uL MPV (9.4-12.3) fL Gran % (34.0-71.1) % Immature Gran % (Auto) (0.001-0.429) % Nucleat RBC Rel Count (0.00-0.2) % Eos # (Auto) (0.04-0.36) x10^3/uL Immature Gran # (Auto) (0.001-0.031) x10^3u/L Absolute Lymphs (auto) (1.18-3.74) x10^3/uL Absolute Monos (auto) (0.24-0.86) x10^3/uL Absolute Nucleated RBC (0.00-0.012) x10^3u/L Lymphocytes % (19.3-51.7) % Monocytes % (4.7-12.5) % Eosinophils % (0.7-5.8) % Basophils % (0.1-1.2) % Absolute Granulocytes (1.56-6.13) x10^3/uL Basophils # (0.01-0.08) x10^3/uL PT (9.4-12.5) SECONDS INR (0.8-3.0) APTT (25.1-36.5) SECONDS Sodium (135-145) mmol/L Potassium (3.5-5.1) mmol/L Chloride (98-107) mmol/L Carbon Dioxide (22-30) mmol/L Anion Gap (5-15) MEQ/L BUN (7-17) mg/dL Creatinine (0.52-1.04) mg/dL Estimated GFR ML/MIN Glucose (74-106) mg/dL POC Glucometer 112 H (74 to 106) mg/dL Hemoglobin A1c (4.5-6.0) % Lactic Acid (0.4-2.0) Calcium (8.4-10.2) mg/dL Total Bilirubin (0.2-1.3) mg/dL AST (14-36) U/L ALT (0-35) U/L Alkaline Phosphatase (38-126) U/L Serum Total Protein (6.3-8.2) g/dL Albumin (3.5-5.0) g/dL Lipase (23-300) U/L Urine Color (Yellow) Urine Appearance (Clear) Urine pH (4.6-8.0) Ur Specific [place] (1.005-1.030) Urine Protein (Negative) Urine Glucose (UA) (Negative) mg/dL Urine Ketones (Negative) Urine Blood (Negative) Urine Nitrite (Negative) Urine Bilirubin (Negative) Urine Urobilinogen (0.2) mg/dL Ur Leukocyte Esterase (Negative) U Hyaline Cast (Auto) (0-2) /LPF Urine Microscopic RBC (0-5) /HPF Urine Microscopic WBC (0-5) /HPF Ur Epithelial Cells (None Seen) /HPF Urine Bacteria (None Seen) /HPF Urine Culture Reflexed (NO) Slides for Path Review ABO Group Rh Factor Antibody Screen (NEGATIVE) Accuchecks Date 04/17/25 Date 04/17/25 Date 04/17/25 Time 20:49 - Radiology Impressions Radiology Exams & Impressions: Radiology Procedures Category Date Time Status ABDOMEN AND PELVIS W CONTRAST [CT] Stat Exams 04/17/25 12:25 Completed CHEST 1 VIEW (PORTABLE) Stat Exams 04/17/25 14:55 Completed - Other Procedures and Tests Respiratory Therapy 04/17/25 17:29 Respiratory Therapy Assessment DAILY 04/17/25 21:47 Oxygen Nasal Cannula 4 lpm Telemedicine Encounter - Telemedicine Encounter Telemedicine Encounter: "The entirety of this encounter was performed via Telemedicine" This visit was performed using real-time audio and video connection between my location and thepatients locationwith the assistance of a surrogateat the patients location. Written or verbal consent was obtained from the pa tient/guardian to perform this visit usings[employer]medicine technology. Any patient questions regarding the telemedicine interaction were answered. TAYA Encounter - TAYA Encounter Attestation TAYA Encounter Attestation: "RUTHANN Blackman P andhavediscussed pertinent aspects of their care with Renetta Delgado agree with the history, physical exam (any modifications based on my personal exam will be noted below), assessment, and plan as outlined in original note. Please see immediately below for my summary of findings and additional assessment and plan along with any meaningful corrections/explanations to the Subjective/Objective portions of the TAYA note will be noted." My portion of the encounter took place via telemedicine. -patient with significant history of COPD on 4L oxygen, presenting with acute onset abdominal pain, found to have incarcerated right inguinal hernia on CT. NG tube was placed and urgent surgery planned. Patient may need increased ventilatory support in the post op period. ICU has been requested by surgeon. Sign out given to night physician
[2025-04-17 16:19] LABS: Glucose, Urine Negative (Negative); Protein,Urine Dip 100 (Negative); RBC 21-50 /HPF (0-5)
[2025-04-17 16:27] LABS: ABO TYPING O; RH TYPING POSITIVE
[2025-04-17] MEDS: FLAGYL 500 MG IVPB 500 MG/100 ML BAG IV STA (16:28)
[2025-04-17] MEDS ORDERED: ROCURONIUM BROMIDE IV ONE (16:58)
[2025-04-17] MEDS ORDERED: Quelicin Fliptop 200 MG/10 ML ONE (16:58)
[2025-04-17] MEDS ORDERED: Versed 2 MG/2 ML Injection ONE (16:58)
[2025-04-17] MEDS ORDERED: propofoL IV ONE (16:58)
[2025-04-17] MEDS ORDERED: SUBLIMAZE 100 MCG/2 ML ONE (16:58)
[2025-04-17] MEDS: DUONEB 0.5-3 MG/3 ml Neb IH PRN (17:05)
[2025-04-17] MEDS: PROVENTIL 2.5 MG/3 ML NEB IH PRN (17:05)
[2025-04-17] MEDS ORDERED: VENTOLIN COMMON CANISTER IH PRN (17:05)
[2025-04-17] MEDS ORDERED: Sensorcaine 0.25% 10 ML ONE (17:11)
[2025-04-17] MEDS ORDERED: Lactated Ringers 1,000 ML IV ONE (17:11)
--- NOTE | 2025-04-17 17:22 | XRAY ---
CLINICAL HISTORY: NG Tube placement decompress stomac COMPARISON: No prior studies available for comparison. TECHNIQUE: X-ray images of the chest were obtained in posteroanterior projection. FINDINGS: The NGT is seen insitu with its tip and side holes below the left hemidiaphragm. The tip is seen about 10 cm below the gastro-oesophageal junction. Pulmonary Parenchyma: Bilateral lower lung zones linear atelectatic bands, more on the right side. No evidence of consolidation or pulmonary nodules identified. Increased left upper lung lucency, likely related to emphysematous changes. No evidence of pleural effusion or pleural thickening. Heart and Mediastinum: Mild cardiomegaly. No mediastinal widening or masses. No hilar or mediastinal lymphadenopathy. Bony Thorax: Bony thorax appears intact without fractures or deformities. Soft Tissues: Soft tissues overlying the chest wall are unremarkable. Spinal cord stimulator device is noted. IMPRESSION: 1. Properly positioned NGT. 2. No acute cardiopulmonary abnormality. 3. Mild cardiomegaly. Electronically Signed by: Otilio Will MD. (04/17/2025 17:20:15 EST)
[2025-04-17] MEDS ORDERED: PHENYLEPHRINE HCL ONE (18:13)
[2025-04-17] MEDS: FLAGYL 500 MG IVPB 500 MG/100 ML BAG IV SCH ×2 (18:16→22:03)
[2025-04-17] MEDS ORDERED: Marcaine 0.5%/Epinephrine 10 ML ONE (18:57)
[2025-04-17] MEDS ORDERED: BRIDION 200MG/2ML IV ONE (19:15)
[2025-04-17 20:50] LABS: Glucose, Urine Negative (Negative); Protein,Urine Dip 30 (Negative); WBC 21-50 /HPF (0-5)
[2025-04-17] MEDS: PULMICORT 0.5 MG/2 ML RESPULES IH SCH (21:47)
[2025-04-17] MEDS: MORPHINE SULFATE 2 MG INJ IV PRN (22:00)
[2025-04-17] MEDS: PROTONIX 40 MG IV IV SCH (22:02)
[2025-04-17] MEDS: ROCEPHIN 1 GM / 100 ML NaCl 1 GM/100 ML IVPB IV SCH (22:03)
[2025-04-17] MEDS: Lactated Ringers 1,000 ML IV SCH (22:04)
[2025-04-18] MEDS: MORPHINE SULFATE 10 MG/ML IV PRN (03:01)
[2025-04-18 04:31] LABS: BASOPHIL % 0.3 % (0.1-1.2); Basophil (Absolute #) 0.04 x10^3/uL (0.01-0.08); Eosinophil (Absolute #) 0 x10^3/uL (0.04-0.36); Hematocrit 36.5 % (34.1-44.9); Hemoglobin 11.2 g/dL (11.2-15.7); IMMATURE GRAN # 0.09 x10^3u/L (0.001-0.031); IMMATURE GRAN % 0.6 % (0.001-0.429); Lymphocyte (Absolute #) 0.85 x10^3/uL (1.18-3.74); Mean Corpuscular Hemoglobin 30.7 pg (25.6-32.2); Mean Corpuscular Hgb Concent. 30.7 g/dL (32.2-35.5); Monocyte (Absolute #) 0.72 x10^3/uL (0.24-0.86); NUCLEATED RBC # 0.00 x10^3u/L (0.00-0.012); NUCLEATED RBC % 0.0 % (0.00-0.2); Platelet Count 177 x10^3/uL (182-369); Red Blood Count 3.65 x10^6/uL (3.93-5.22); White Blood Count 14.9 x10^3/uL (3.98-10.04)
[2025-04-18 04:46] LABS: Calcium 8.5 mg/dL (8.4-10.2); Carbon Dioxide 29.0 mmol/L (22-30); Creatinine 1 0.51 mg/dL (0.52-1.04); EST GLOMERULAR FILTRATION RATE 104.8 ML/MIN; Glucose 104.0 mg/dL (74-106); Potassium 3.6 mmol/L (3.5-5.1); SGOT/AST 19.0 U/L (14-36); SGPT/ALT 9.0 U/L (0-35); Total Protein 6.5 g/dL (6.3-8.2)
[2025-04-18] MEDS ORDERED: MEDICATION INTERVENTION MC SCH ×3 (07:30→10:00)
[2025-04-18] MEDS ORDERED: TYLENOL 325 MG PO PRN (07:49)
[2025-04-18] MEDS ORDERED: Robitussin 100 MG/5 ML NG PRN (08:02)
[2025-04-18] MEDS: FEVERALL 650 MG RC PRN (08:14)
[2025-04-18] MEDS ORDERED: NON-FORMULARY ITEM (Cholecalciferol (Vitamin D3) [Vitamin D3] 50 MCG Tablet) PO SCH (10:00)
[2025-04-18] MEDS ORDERED: Mucinex 600MG ER Tabs PO SCH (10:00)
[2025-04-18] MEDS ORDERED: THEOPHYLLINE ER 24HR NG SCH (10:00)
[2025-04-18] MEDS ORDERED: ROCEPHIN 1 GM / 100 ML NaCl 1 GM/100 ML IVPB IV SCH ×3 (10:00)
[2025-04-18] MEDS ORDERED: NON-FORMULARY ITEM (Theophylline Anhydrous [Theophylline Er] 300 MG Tab.Er.12h) PO SCH (10:00)
[2025-04-18] MEDS ORDERED: NON-FORMULARY ITEM (Buspirone Hcl [Buspirone Hcl] 7.5 MG Tablet) PO SCH (10:00)
[2025-04-18] MEDS: Prozac 20 MG NG SCH (10:11)
[2025-04-18] MEDS: DALIRESP NG SCH (10:12)
[2025-04-18] MEDS: VITAMIN D NG SCH (10:12)
[2025-04-18] MEDS: CLARITIN 10 MG NG SCH (10:12)
[2025-04-18] MEDS: BUSPAR 5 MG NG SCH (10:12)
[2025-04-18] MEDS: Singulair 10 MG NG SCH (10:12)
[2025-04-18] MEDS: Flonase NASAL NS SCH (10:21)
--- NOTE | 2025-04-18 10:56 | PCM.NOTE ---
Date and Time: 04/18/25 1051 Subjective Assessment: is a 64 year old female with a past medical history of COPD (on 4L oxygen baseline), asthma, depression, lung cancer treated with radiation in 2023, and an eight-year history of a known but unrepaired right inguinal hernia, active smoker, approximately half a pack per day who presented to the ED on 04-17-25 with acute right lower quadrant pain that began this morning. She describes the pain as sharp, constant, and 10/10 on the numerical pain scale. The pain is centered at her chronic hernia site and feels to her as though something is exploding inside. She also reported nausea, vomiting, and diarrhea, along with increased shortness of breath above her usual baseline. She denied fever, chills, or urinary symptoms. On arrival to the ED, she was significantly hypertensive at 180/105 and maintained on four liters of oxygen. Initial labs remarkable for leukocytosis with WBC 14.4, CO2 32, BUN 18. CT abdomen/pelvis revealed a right-sided incarcerated inguinal hernia containing omentum and small bowel with associated small bowel obstruction. Radiology described collapsed afferent and efferent loops at the hernia neck concerning for a developing closed-loop obstruction with impending strangulation, though bowel wall enhancement remained preserved. Additional findings included a tiny non-complicated periumbilical hernia, mild inflammatory pyloric thickening, uncomplicated colonic diverticulosis, fatty liver, a small sliding hiatal hernia, and emphysematous changes with right-pred ominant basal atelectasis consistent with her COPD. The case was discussed with on-call surgeon Dr. Sang Mendes, who recommended NG tube placement, continuation of IV fluids and antibiotics, and urgent operative repair tonight. She received IV morphine for pain, ondansetron for nausea, a one-liter IV fluid bolus, and was started on IV ceftriaxone and metronidazole. 04/18/25: Met with patient bedside. She is PODS#1 s/p hernia repair and bowel resection. Endorses she is doing well. Pain controlled with numerical pain rating at 4/10 at surgical incision site. MLI with surgical dressing, some shadow drainage. KATE x 1 with moderate sanguineous drainage. Hypoactive BS. No flatulence or bowel movements. NG remains on LIS. Surgery following. Ceftriaxone/Flagyl continued. Denies fever,cough, sob, cp, dizziness, N/V/D. - Review of Systems Constitutional: No Symptoms Eyes: No Symptoms Ears, Nose, & Throat: No Symptoms Respiratory: Short Of Breath Cardiac: No Symptoms Abdominal/Gastrointestinal: Abdominal Pain (at surgical site) Genitourinary Symptoms: No Symptoms, Other (amin cath) Musculoskeletal: No Symptoms Skin: Other (MLI with surgical dressing CDI and KATE draine with moderate sanguineous drainage ) Neurological: No Symptoms Psychological: No Symptoms Endocrine: No Symptoms Hematologic/Lymphatic: No Symptoms Immunological/Allergic: No Symptoms Objective Exam General Appearance: no apparent distress Neurologic Exam: alert, oriented x 3, cooperative Skin Exam: other (MLI with surgical dressing CDI and KATE draine with moderate sanguineous drainage) Wound Assessment: Skin/Wound Assessment Wound/Incision Assessment Start: 04/17/25 20:59 Text: Status: Active Freq: Q4H Protocol: Document 04/18/25 08:00 [facility] (Rec: 04/18/25 08:39 [facility] [id number]) Wound/Incision Assessment Medial Abdomen Wound Assessment Shift Assessment Wound Type Incision Wound Stage Non Pressure Wound Dressing Status Drainage circled Drainage Amount Minimal Drainage Odor None/Absent Primary Dressing Border Gauze Comment POD #1, Unable to assess, surgical dressing in place with shadowing marked by previous staff Right Lower Abdomen Drain Type KATE drain Drainage Description Sanguineous Odor None/Absent Comment POD #1, unable to assess site. Chang remains C/D/I. Wound Photo Photo Taken No Eye Exam: PERRL Ears, Nose, Throat Exam: normal ENT inspection Neck Exam: normal inspection Respiratory Exam: diminished breath sounds, crackles/rales Cardiovascular Exam: regular rate/rhythm, normal heart sounds Gastrointestinal/Abdomen Exam: soft, tenderness, other (MLI CDI with surgical dressing/KATE drains ; hypoactive BS x 4 quads) Extremity Exam: normal inspection Back Exam: normal inspection Pelvic Exam: deferred Rectal Exam: deferred Objective Data Vital Signs: Vital Signs - 24 hr Temp Pulse Resp BP BP Pulse Ox 04/18/25 08:20 97.8 F 91 H 20 142/86 92 L 04/18/25 08:00 90 14 04/18/25 07:00 93 H 13 148/99 97 04/18/25 06:00 98 H 18 146/94 97 04/18/25 05:00 92 H 23 147/96 97 04/18/25 04:00 99.2 F 94 H 17 133/93 97 04/18/25 03:00 99 H 20 159/91 93 L 04/18/25 02:00 99 H 20 134/87 94 L 04/18/25 01:00 96 H 18 153/97 97 04/18/25 00:45 103 H 22 155/103 89 L 04/18/25 00:31 99 H 20 141/99 89 L 04/18/25 00:15 97 H 24 113/96 95 04/18/25 00:01 95 H 04/18/25 00:00 98.2 F 95 H 19 160/115 92 L 04/17/25 23:45 98 H 16 154/91 92 L 04/17/25 23:30 95 H 22 159/92 90 L 04/17/25 23:15 96 H 21 156/98 93 L 04/17/25 23:00 95 H 19 154/95 95 04/17/25 22:45 94 H 18 165/95 95 04/17/25 22:30 96 H 19 161/99 95 04/17/25 22:15 95 H 18 160/94 95 04/17/25 22:00 93 H 18 158/92 94 L 04/17/25 21:48 91 H 16 96 04/17/25 21:45 90 18 146/107 93 L 04/17/25 21:30 92 H 18 154/93 96 04/17/25 21:15 92 H 16 149/95 97 04/17/25 21:00 91 H 23 143/90 96 04/17/25 20:59 18 04/17/25 20:45 91 H 18 155/102 92 L 04/17/25 20:30 98.5 F 91 H 19 168/97 97 04/17/25 20:23 93 L 04/17/25 17:16 88 18 146/80 98 04/17/25 16:58 88 18 98 04/17/25 16:31 98.2 F 88 22 146/80 92 L 04/17/25 16:07 98 04/17/25 16:03 98.2 F 88 22 146/80 92 L 04/17/25 15:40 80 22 158/90 97 04/17/25 15:35 97 04/17/25 15:31 97 04/17/25 15:00 152/109 97 04/17/25 14:30 160/97 95 04/17/25 14:00 95 H 4 L 180/105 83 L 04/17/25 13:40 171/115 95 04/17/25 13:39 97 04/17/25 13:00 165/111 04/17/25 12:30 91 H 167/130 97 04/17/25 12:24 97.8 F 91 H 20 167/130 98 Pain Assessment - Last Documented Pain Intensity 2 Pain Scale Used 0-10 Pain Scale Intake and Output: Intake & Output 04/15/25 04/16/25 04/17/25 04/18/25 11:59 11:59 11:59 11:59 Intake Total 1228 Output Total 1425 Balance -197 Weight 64.3 kg Lab Results: Lab Results-Last 24 Hours 04/17/25 04/17/25 04/17/25 Range/Units 12:25 12:25 12:35 WBC 14.4 H (3.98-10.04) x10^3/uL RBC 4.31 (3.93-5.22) x10^6/uL Hgb 13.6 (11.2-15.7) g/dL Hct 42.4 (34.1-44.9) % MCV 98.4 H (79.4-94.8) fL MCH 31.6 (25.6-32.2) pg MCHC 32.1 L (32.2-35.5) g/dL RDW 13.3 (11.7-14.4) % Plt Count 219 (182-369) x10^3/uL MPV 9.8 (9.4-12.3) fL Gran % 92.6 H (34.0-71.1) % Immature Gran % (Auto) 0.6 H (0.001-0.429) % Nucleat RBC Rel Count 0.0 (0.00-0.2) % Eos # (Auto) 0.01 L (0.04-0.36) x10^3/uL Immature Gran # (Auto) 0.09 H (0.001-0.031) x10^3u/L Absolute Lymphs (auto) 0.50 L (1.18-3.74) x10^3/uL Absolute Monos (auto) 0.42 (0.24-0.86) x10^3/uL Absolute Nucleated RBC 0.00 (0.00-0.012) x10^3u/L Lymphocytes % 3.5 L (19.3-51.7) % Monocytes % 2.9 L (4.7-12.5) % Eosinophils % 0.1 L (0.7-5.8) % Basophils % 0.3 (0.1-1.2) % Absolute Granulocytes 13.29 H (1.56-6.13) x10^3/uL Basophils # 0.05 (0.01-0.08) x10^3/uL PT (9.4-12.5) SECONDS INR (0.8-3.0) APTT (25.1-36.5) SECONDS Sodium (135-145) mmol/L Potassium (3.5-5.1) mmol/L Chloride (98-107) mmol/L Carbon Dioxide (22-30) mmol/L Anion Gap (5-15) MEQ/L BUN (7-17) mg/dL Creatinine (0.52-1.04) mg/dL Estimated GFR ML/MIN Glucose (74-106) mg/dL POC Glucometer (74 to 106) mg/dL Hemoglobin A1c (4.5-6.0) % Lactic Acid 1.0 (0.4-2.0) Calcium (8.4-10.2) mg/dL Total Bilirubin (0.2-1.3) mg/dL AST (14-36) U/L ALT (0-35) U/L Alkaline Phosphatase (38-126) U/L Serum Total Protein (6.3-8.2) g/dL Albumin (3.5-5.0) g/dL Lipase (23-300) U/L Urine Color Yellow (Yellow) Urine Appearance Clear (Clear) Urine pH 6.5 (4.6-8.0) Ur Specific [place] >=1.030 A (1.005-1.030) Urine Protein 100 A (Negative) Urine Glucose (UA) Negative (Negative) mg/dL Urine Ketones Negative (Negative) Urine Blood Moderate A (Negative) Urine Nitrite Positive A (Negative) Urine Bilirubin Negative (Negative) Urine Urobilinogen 0.2 (0.2) mg/dL Ur Leukocyte Esterase Negative (Negative) U Hyaline Cast (Auto) NONE SEEN (0-2) /LPF Urine Microscopic RBC 21-50 A (0-5) /HPF Urine Microscopic WBC 11-20 A (0-5) /HPF Ur Epithelial Cells Rare (None Seen) /HPF Urine Bacteria Many A (None Seen) /HPF Urine Culture Reflexed YES (NO) Slides for Path Review YES ABO Group Rh Factor Antibody Screen (NEGATIVE) 04/17/25 04/17/25 04/17/25 Range/Units 12:35 15:30 15:31 WBC (3.98-10.04) x10^3/uL RBC (3.93-5.22) x10^6/uL Hgb (11.2-15.7) g/dL Hct (34.1-44.9) % MCV (79.4-94.8) fL MCH (25.6-32.2) pg MCHC (32.2-35.5) g/dL RDW (11.7-14.4) % Plt Count (182-369) x10^3/uL MPV (9.4-12.3) fL Gran % (34.0-71.1) % Immature Gran % (Auto) (0.001-0.429) % Nucleat RBC Rel Count (0.00-0.2) % Eos # (Auto) (0.04-0.36) x10^3/uL Immature Gran # (Auto) (0.001-0.031) x10^3u/L Absolute Lymphs (auto) (1.18-3.74) x10^3/uL Absolute Monos (auto) (0.24-0.86) x10^3/uL Absolute Nucleated RBC (0.00-0.012) x10^3u/L Lymphocytes % (19.3-51.7) % Monocytes % (4.7-12.5) % Eosinophils % (0.7-5.8) % Basophils % (0.1-1.2) % Absolute Granulocytes (1.56-6.13) x10^3/uL Basophils # (0.01-0.08) x10^3/uL PT 10.7 (9.4-12.5) SECONDS INR 0.95 (0.8-3.0) APTT 26.2 (25.1-36.5) SECONDS Sodium 139 (135-145) mmol/L Potassium 4.0 (3.5-5.1) mmol/L Chloride 98 (98-107) mmol/L Carbon Dioxide 32 H (22-30) mmol/L Anion Gap 12.1 (5-15) MEQ/L BUN 18 H (7-17) mg/dL Creatinine 0.63 (0.52-1.04) mg/dL Estimated GFR 99.6 ML/MIN Glucose 158 H (74-106) mg/dL POC Glucometer (74 to 106) mg/dL Hemoglobin A1c 5.20 (4.5-6.0) % Lactic Acid (0.4-2.0) Calcium 9.9 (8.4-10.2) mg/dL Total Bilirubin 0.60 (0.2-1.3) mg/dL AST 20 (14-36) U/L ALT 11 (0-35) U/L Alkaline Phosphatase 99 (38-126) U/L Serum Total Protein 8.1 (6.3-8.2) g/dL Albumin 4.5 (3.5-5.0) g/dL Lipase 35 (23-300) U/L Urine Color (Yellow) Urine Appearance (Clear) Urine pH (4.6-8.0) Ur Specific [place] (1.005-1.030) Urine Protein (Negative) Urine Glucose (UA) (Negative) mg/dL Urine Ketones (Negative) Urine Blood (Negative) Urine Nitrite (Negative) Urine Bilirubin (Negative) Urine Urobilinogen (0.2) mg/dL Ur Leukocyte Esterase (Negative) U Hyaline Cast (Auto) (0-2) /LPF Urine Microscopic RBC (0-5) /HPF Urine Microscopic WBC (0-5) /HPF Ur Epithelial Cells (None Seen) /HPF Urine Bacteria (None Seen) /HPF Urine Culture Reflexed (NO) Slides for Path Review ABO Group Rh Factor Antibody Screen (NEGATIVE) 04/17/25 04/17/25 04/17/25 Range/Units 15:31 16:35 19:00 WBC (3.98-10.04) x10^3/uL RBC (3.93-5.22) x10^6/uL Hgb (11.2-15.7) g/dL Hct (34.1-44.9) % MCV (79.4-94.8) fL MCH (25.6-32.2) pg MCHC (32.2-35.5) g/dL RDW (11.7-14.4) % Plt Count (182-369) x10^3/uL MPV (9.4-12.3) fL Gran % (34.0-71.1) % Immature Gran % (Auto) (0.001-0.429) % Nucleat RBC Rel Count (0.00-0.2) % Eos # (Auto) (0.04-0.36) x10^3/uL Immature Gran # (Auto) (0.001-0.031) x10^3u/L Absolute Lymphs (auto) (1.18-3.74) x10^3/uL Absolute Monos (auto) (0.24-0.86) x10^3/uL Absolute Nucleated RBC (0.00-0.012) x10^3u/L Lymphocytes % (19.3-51.7) % Monocytes % (4.7-12.5) % Eosinophils % (0.7-5.8) % Basophils % (0.1-1.2) % Absolute Granulocytes (1.56-6.13) x10^3/uL Basophils # (0.01-0.08) x10^3/uL PT (9.4-12.5) SECONDS INR (0.8-3.0) APTT (25.1-36.5) SECONDS Sodium (135-145) mmol/L Potassium (3.5-5.1) mmol/L Chloride (98-107) mmol/L Carbon Dioxide (22-30) mmol/L Anion Gap (5-15) MEQ/L BUN (7-17) mg/dL Creatinine (0.52-1.04) mg/dL Estimated GFR ML/MIN Glucose (74-106) mg/dL POC Glucometer 108 H (74 to 106) mg/dL Hemoglobin A1c (4.5-6.0) % Lactic Acid (0.4-2.0) Calcium (8.4-10.2) mg/dL Total Bilirubin (0.2-1.3) mg/dL AST (14-36) U/L ALT (0-35) U/L Alkaline Phosphatase (38-126) U/L Serum Total Protein (6.3-8.2) g/dL Albumin (3.5-5.0) g/dL Lipase (23-300) U/L Urine Color Yellow (Yellow) Urine Appearance Clear (Clear) Urine pH 5.5 (4.6-8.0) Ur Specific [place] >=1.030 A (1.005-1.030) Urine Protein 30 (Negative) Urine Glucose (UA) Negative (Negative) mg/dL Urine Ketones Negative (Negative) Urine Blood Moderate A (Negative) Urine Nitrite Positive A (Negative) Urine Bilirubin Negative (Negative) Urine Urobilinogen 0.2 (0.2) mg/dL Ur Leukocyte Esterase Negative (Negative) U Hyaline Cast (Auto) NONE SEEN (0-2) /LPF Urine Microscopic RBC 11-20 A (0-5) /HPF Urine Microscopic WBC 21-50 A (0-5) /HPF Ur Epithelial Cells None Seen (None Seen) /HPF Urine Bacteria None Seen (None Seen) /HPF Urine Culture Reflexed (NO) Slides for Path Review ABO Group O Rh Factor POSITIVE Antibody Screen NEGATIVE (NEGATIVE) 04/17/25 04/17/25 04/18/25 Range/Units 20:49 23:54 04:00 WBC 14.9 H (3.98-10.04) x10^3/uL RBC 3.65 L (3.93-5.22) x10^6/uL Hgb 11.2 (11.2-15.7) g/dL Hct 36.5 (34.1-44.9) % MCV 100.0 H (79.4-94.8) fL MCH 30.7 (25.6-32.2) pg MCHC 30.7 L (32.2-35.5) g/dL RDW 13.5 (11.7-14.4) % Plt Count 177 L (182-369) x10^3/uL MPV 9.9 (9.4-12.3) fL Gran % 88.6 H (34.0-71.1) % Immature Gran % (Auto) 0.6 H (0.001-0.429) % Nucleat RBC Rel Count 0.0 (0.00-0.2) % Eos # (Auto) 0 L (0.04-0.36) x10^3/uL Immature Gran # (Auto) 0.09 H (0.001-0.031) x10^3u/L Absolute Lymphs (auto) 0.85 L (1.18-3.74) x10^3/uL Absolute Monos (auto) 0.72 (0.24-0.86) x10^3/uL Absolute Nucleated RBC 0.00 (0.00-0.012) x10^3u/L Lymphocytes % 5.7 L (19.3-51.7) % Monocytes % 4.8 (4.7-12.5) % Eosinophils % 0.0 L (0.7-5.8) % Basophils % 0.3 (0.1-1.2) % Absolute Granulocytes 13.17 H (1.56-6.13) x10^3/uL Basophils # 0.04 (0.01-0.08) x10^3/uL PT (9.4-12.5) SECONDS INR (0.8-3.0) APTT (25.1-36.5) SECONDS Sodium (135-145) mmol/L Potassium (3.5-5.1) mmol/L Chloride (98-107) mmol/L Carbon Dioxide (22-30) mmol/L Anion Gap (5-15) MEQ/L BUN (7-17) mg/dL Creatinine (0.52-1.04) mg/dL Estimated GFR ML/MIN Glucose (74-106) mg/dL POC Glucometer 112 H 92 (74 to 106) mg/dL Hemoglobin A1c (4.5-6.0) % Lactic Acid (0.4-2.0) Calcium (8.4-10.2) mg/dL Total Bilirubin (0.2-1.3) mg/dL AST (14-36) U/L ALT (0-35) U/L Alkaline Phosphatase (38-126) U/L Serum Total Protein (6.3-8.2) g/dL Albumin (3.5-5.0) g/dL Lipase (23-300) U/L Urine Color (Yellow) Urine Appearance (Clear) Urine pH (4.6-8.0) Ur Specific [place] (1.005-1.030) Urine Protein (Negative) Urine Glucose (UA) (Negative) mg/dL Urine Ketones (Negative) Urine Blood (Negative) Urine Nitrite (Negative) Urine Bilirubin (Negative) Urine Urobilinogen (0.2) mg/dL Ur Leukocyte Esterase (Negative) U Hyaline Cast (Auto) (0-2) /LPF Urine Microscopic RBC (0-5) /HPF Urine Microscopic WBC (0-5) /HPF Ur Epithelial Cells (None Seen) /HPF Urine Bacteria (None Seen) /HPF Urine Culture Reflexed (NO) Slides for Path Review ABO Group Rh Factor Antibody Screen (NEGATIVE) 04/18/25 04/18/25 04/18/25 Range/Units 04:00 04:07 07:41 WBC (3.98-10.04) x10^3/uL RBC (3.93-5.22) x10^6/uL Hgb (11.2-15.7) g/dL Hct (34.1-44.9) % MCV (79.4-94.8) fL MCH (25.6-32.2) pg MCHC (32.2-35.5) g/dL RDW (11.7-14.4) % Plt Count (182-369) x10^3/uL MPV (9.4-12.3) fL Gran % (34.0-71.1) % Immature Gran % (Auto) (0.001-0.429) % Nucleat RBC Rel Count (0.00-0.2) % Eos # (Auto) (0.04-0.36) x10^3/uL Immature Gran # (Auto) (0.001-0.031) x10^3u/L Absolute Lymphs (auto) (1.18-3.74) x10^3/uL Absolute Monos (auto) (0.24-0.86) x10^3/uL Absolute Nucleated RBC (0.00-0.012) x10^3u/L Lymphocytes % (19.3-51.7) % Monocytes % (4.7-12.5) % Eosinophils % (0.7-5.8) % Basophils % (0.1-1.2) % Absolute Granulocytes (1.56-6.13) x10^3/uL Basophils # (0.01-0.08) x10^3/uL PT (9.4-12.5) SECONDS INR (0.8-3.0) APTT (25.1-36.5) SECONDS Sodium 136 (135-145) mmol/L Potassium 3.6 (3.5-5.1) mmol/L Chloride 101 (98-107) mmol/L Carbon Dioxide 29 (22-30) mmol/L Anion Gap 8.8 (5-15) MEQ/L BUN 13 (7-17) mg/dL Creatinine 0.51 L (0.52-1.04) mg/dL Estimated GFR 104.8 ML/MIN Glucose 104 (74-106) mg/dL POC Glucometer 102 99 (74 to 106) mg/dL Hemoglobin A1c (4.5-6.0) % Lactic Acid (0.4-2.0) Calcium 8.5 (8.4-10.2) mg/dL Total Bilirubin 0.40 (0.2-1.3) mg/dL AST 19 (14-36) U/L ALT 9 (0-35) U/L Alkaline Phosphatase 73 (38-126) U/L Serum Total Protein 6.5 (6.3-8.2) g/dL Albumin 3.5 (3.5-5.0) g/dL Lipase (23-300) U/L Urine Color (Yellow) Urine Appearance (Clear) Urine pH (4.6-8.0) Ur Specific [place] (1.005-1.030) Urine Protein (Negative) Urine Glucose (UA) (Negative) mg/dL Urine Ketones (Negative) Urine Blood (Negative) Urine Nitrite (Negative) Urine Bilirubin (Negative) Urine Urobilinogen (0.2) mg/dL Ur Leukocyte Esterase (Negative) U Hyaline Cast (Auto) (0-2) /LPF Urine Microscopic RBC (0-5) /HPF Urine Microscopic WBC (0-5) /HPF Ur Epithelial Cells (None Seen) /HPF Urine Bacteria (None Seen) /HPF Urine Culture Reflexed (NO) Slides for Path Review ABO Group Rh Factor Antibody Screen (NEGATIVE) Radiology Exams: Radiology Procedures Category Date Time Status ABDOMEN AND PELVIS W CONTRAST [CT] Stat Exams 04/17/25 12:25 Completed CHEST 1 VIEW (PORTABLE) Stat Exams 04/17/25 14:55 Completed Medications: Medications Generic Name Dose Route Start Last Admin Trade Name Freq PRN Reason Stop Dose Admin Acetaminophen 650 mg 04/18/25 07:56 04/18/25 08:14 Acetaminophen 650 Mg Supp.Rect RC 05/18/25 07:55 650 mg Q4H PRN PRN Administration TEMP> 100, PAIN, HEADACHE Acetaminophen 650 mg 04/18/25 07:57 Acetaminophen 325 Mg Tablet NG 05/18/25 07:48 Q4H PRN PRN temp > 100 Albuterol Sulfate 2 puff 04/17/25 17:05 Albuterol Common Canister Inhaler 05/17/25 17:04 Q6HPRN PRN SHORTNESS OF BREATH/WHEEZING Albuterol Sulfate 2.5 mg 04/17/25 17:05 04/17/25 21:47 Albuterol Sulfate 2.5 Mg/3 Ml Neb 05/17/25 17:04 2.5 mg Q4HPRN PRN Administration SHORTNESS OF BREATH/WHEEZING Albuterol/Ipratropium 3 ml 04/17/25 16:33 04/17/25 17:05 Ipratropium/Albuterol Sulfate 3 Ml Ampul.Neb 05/17/25 18:59 3 ml Q6HRT PRN Administration SHORTNESS OF BREATH/WHEEZING Budesonide 0.5 mg 04/17/25 22:00 04/17/25 21:47 Budesonide 0.5 Mg/2 Ml Ampul.Neb. 05/17/25 21:59 0.5 mg BID THANIA Administration Buspirone HCl 15 mg 04/18/25 10:00 04/18/25 10:12 Buspirone Hcl 5 Mg Tablet NG 05/18/25 09:59 15 mg TID THANIA Administration Cholecalciferol 2,000 unit 04/18/25 10:00 04/18/25 10:12 Cholecalciferol (Vitamin D3) 1000 Unit Tablet NG 05/18/25 09:59 2,000 unit DAILY THANIA Administration Enoxaparin Sodium 40 mg 04/19/25 10:00 Enoxaparin Sodium 40 Mg/0.4 Ml Syringe SQ 05/19/25 09:59 DAILY THANIA Fluoxetine HCl 60 mg 04/18/25 10:00 04/18/25 10:11 Fluoxetine Hcl 20 Mg Cap NG 05/18/25 09:59 60 mg DAILY THANIA Administration Fluticasone Propionate 0 gm 04/18/25 10:00 04/18/25 10:21 Fluticasone Propionate 16 Gm Bottle Nasal [place] NS 05/18/25 09:59 Not Given DAILY THANIA Guaifenesin 10 ml 04/18/25 08:02 Guaifenesin 100 Mg/5 Ml 118 Ml Bottle NG 05/18/25 08:01 Q4H PRN PRN Metronidazole 500 mg in 100 mls @ 200 mls/hr 04/17/25 22:00 04/18/25 05:05 Flagyl 500 Mg Ivpb IV 05/17/25 21:59 200 mls/hr Q6HT THANIA Administration Lactated Ringer's 1,000 mls @ 100 mls/hr 04/17/25 22:00 04/18/25 05:05 Lactated Ringers IV 05/17/25 21:59 100 mls/hr .Q10H THANIA Administration Ceftriaxone Sodium 1 gm in 100 mls @ 200 mls/hr 04/18/25 22:00 Rocephin 1 Gm / 100 Ml Nacl IV 05/18/25 21:59 Q24H22 THANIA Loratadine 10 mg 04/18/25 10:00 04/18/25 10:12 Loratadine 10 Mg Tablet NG 05/18/25 09:59 10 mg DAILY THANIA Administration Miscellaneous Information 1 each 04/18/25 07:30 Medication Intervention 1 Each Each 05/18/25 07:29 .RN TO CHECK THANIA Miscellaneous Information 1 each 04/18/25 10:00 Medication Intervention 1 Each Each 05/18/25 09:59 .RN TO CHECK WITH PT THANIA Montelukast Sodium 10 mg 04/18/25 10:00 04/18/25 10:12 Montelukast Sodium 10 Mg Tablet NG 05/18/25 09:59 10 mg DAILY THANIA Administration Morphine Sulfate 5 mg 04/17/25 21:42 04/18/25 08:13 Morphine Sulfate 10 Mg/Ml Injection IV 04/22/25 21:41 5 mg Q4H PRN PRN Administration PAIN Ondansetron HCl 4 mg 04/17/25 16:33 Ondansetron Hcl 4 Mg/2 Ml Vial IV 05/17/25 16:32 Q6H PRN PRN NAUSEA/VOMITING Pantoprazole Sodium 40 mg 04/18/25 22:00 Pantoprazole 40 Mg Vial IV 05/18/25 21:59 Q24H22 THANIA Roflumilast 500 mcg 04/18/25 10:00 04/18/25 10:12 Roflumilast 500 Mcg Tablet NG 05/18/25 09:59 500 mcg DAILY THANIA Administration Simvastatin 20 mg 04/18/25 22:00 Simvastatin 20 Mg Tablet NG 05/18/25 21:59 QPM THANIA Tiotropium [place] 1 ea 04/18/25 17:00 Tiotropium [place] 18 Mcg/Cap Inhaler IH 05/18/25 16:59 [facility] Discontinued Medications Generic Name Dose Route Start Last Admin Trade Name Freq PRN Reason Stop Dose Admin Acetaminophen 650 mg 04/18/25 07:49 Acetaminophen 325 Mg Tablet PO 05/18/25 07:48 Q4H PRN PRN temp > 100 Bupivacaine HCl Confirm 04/17/25 17:11 Bupivacaine Hcl 2.5 Mg/Ml 10 Ml Administered 04/17/25 17:12 Dose 20 ml .ROUTE .STK-MED ONE Bupivacaine HCl/Epinephrine Bitart Confirm 04/17/25 18:57 Bupivacaine Hcl/Epinephrine 10 Ml Vial Administered 04/17/25 18:58 Dose 40 ml .ROUTE .STK-MED ONE Fentanyl Citrate Confirm 04/17/25 16:58 Fentanyl Citrate 100 Mcg/2 Ml* Vial Administered 04/17/25 16:59 Dose 100 mcg .ROUTE .STK-MED ONE Guaifenesin 1,200 mg 04/18/25 10:00 Guaifenesin 600 Mg Tablet Er PO 05/18/25 09:59 BID THANIA Sodium Chloride 1,000 mls @ 999 mls/hr 04/17/25 12:25 04/17/25 13:41 Sodium Chloride 0.9% 1000 Ml IV 04/17/25 13:25 Infused .Q1H1M STA Infusion Sodium Chloride Confirm 04/17/25 12:33 Sodium Chloride 0.9% 1000 Ml Administered 04/17/25 12:34 Dose 1,000 mls @ ud .ROUTE .STK-MED ONE Ceftriaxone Sodium 1 gm in 100 mls @ 200 mls/hr 04/17/25 14:48 04/17/25 16:07 Rocephin 1 Gm / 100 Ml Nacl IV 04/17/25 15:17 200 mls/hr STAT ONE Administration Metronidazole 500 mg in 100 mls @ 200 mls/hr 04/17/25 14:48 04/17/25 16:28 Flagyl 500 Mg Ivpb IV 04/17/25 15:17 200 mls/hr STAT STA Administration Sodium Chloride 1,000 mls @ 100 mls/hr 04/17/25 15:00 04/18/25 03:21 Sodium Chloride 0.9% 1000 Ml IV 05/17/25 14:59 Not Given .Q10H THANIA Ceftriaxone Sodium Confirm 04/17/25 15:10 Rocephin 1 Gm / 100 Ml Nacl Administered 04/17/25 15:11 Dose 1 gm in 100 mls @ ud IV .STK-MED ONE Ceftriaxone Sodium 1 gm in 100 mls @ 200 mls/hr 04/18/25 10:00 Rocephin 1 Gm / 100 Ml Nacl IV 05/18/25 09:59 Q24H10 THANIA Metronidazole 500 mg in 100 mls @ 200 mls/hr 04/17/25 18:00 04/17/25 18:16 Flagyl 500 Mg Ivpb IV 05/17/25 17:59 Not Given Q6HT THANIA Lactated Ringer's Confirm 04/17/25 17:11 Lactated Ringers Administered 04/17/25 17:12 Dose 1,000 mls @ ud IV .STK-MED ONE Ceftriaxone Sodium 1 gm in 100 mls @ 200 mls/hr 04/18/25 10:00 Rocephin 1 Gm / 100 Ml Nacl IV 05/18/25 09:59 Q24H10 THANIA Ceftriaxone Sodium 1 gm in 100 mls @ 200 mls/hr 04/17/25 22:00 04/17/25 22:03 Rocephin 1 Gm / 100 Ml Nacl IV 05/17/25 22:05 200 mls/hr Q24H10 THANIA Administration Midazolam HCl Confirm 04/17/25 16:58 Midazolam Hcl 2 Mg/2 Ml Vial Administered 04/17/25 16:59 Dose 2 mg .ROUTE .STK-MED ONE Miscellaneous Information 1 each 04/18/25 07:30 Medication Intervention 1 Each Each 05/18/25 07:29 .RN TO CHECK THANIA Morphine Sulfate 2 mg 04/17/25 12:25 04/17/25 12:38 Morphine Sulfate 2 Mg/Ml Inj IV 04/17/25 12:26 2 mg STAT ONE Administration Morphine Sulfate Confirm 04/17/25 12:32 Morphine Sulfate 2 Mg/Ml Inj Administered 04/17/25 12:33 Dose 2 mg .ROUTE .STK-MED ONE Morphine Sulfate 4 mg 04/17/25 14:48 04/17/25 14:53 Morphine Sulfate 4 Mg/Ml Injection IV 04/17/25 14:49 4 mg STAT ONE Administration Morphine Sulfate Confirm 04/17/25 14:52 Morphine Sulfate 4 Mg/Ml Injection Administered 04/17/25 14:53 Dose 4 mg .ROUTE .STK-MED ONE Morphine Sulfate 2 mg 04/17/25 16:35 04/17/25 22:00 Morphine Sulfate 2 Mg/Ml Inj IV 04/22/25 16:34 2 mg Q4H PRN PRN Administration SEVERE PAIN Non-Formulary Medication 2 puffs 04/17/25 22:00 Budesonide/Formoterol Fumarate [Budesonide-Formoterol 160-4.5] IH 05/17/25 21:59 BID THANIA Ondansetron HCl 4 mg 04/17/25 12:25 04/17/25 12:38 Ondansetron Hcl 4 Mg/2 Ml Vial IV 04/17/25 12:26 4 mg STAT ONE Administration Ondansetron HCl Confirm 04/17/25 12:32 Ondansetron Hcl 4 Mg/2 Ml Vial Administered 04/17/25 12:33 Dose 4 mg .ROUTE .STK-MED ONE Pantoprazole Sodium 40 mg 04/17/25 16:45 04/17/25 22:02 Pantoprazole 40 Mg Vial IV 05/17/25 16:44 40 mg Q24H THANIA Administration Phenylephrine HCl Confirm 04/17/25 18:13 Phenylephrine 10 Mg/Ml Vial Administered 04/17/25 18:14 Dose 10 mg .ROUTE .STK-MED ONE Propofol Confirm 04/17/25 16:58 Propofol 200 Mg/20 Ml Vial Administered 04/17/25 16:59 Dose 200 mg IV .STK-MED ONE Rocuronium [place] Confirm 04/17/25 16:58 Rocuronium [place] 50 Mg/5 Ml Vial Administered 04/17/25 16:59 Dose 50 mg IV .STK-MED ONE Succinylcholine Chloride Confirm 04/17/25 16:58 Succinylcholine Chloride 200mg/10 Ml Vial Administered 04/17/25 16:59 Dose 100 mg .ROUTE .STK-MED ONE Sugammadex Sodium Confirm 04/17/25 19:15 Sugammadex Sodium 200 Mg/2 Ml Vial Administered 04/17/25 19:16 Dose 200 mg IV .STK-MED ONE Theophylline 300 mg 04/18/25 10:00 Theophylline Anhydrous 400 Mg Tab.Er.24hr Tablet NG 05/18/25 09:59 BID [facility] Multi-Disciplinary Progress Notes: Multi-Disciplinary Progress Notes 04/17/25 16:01 Respiratory Note by Meliton Galindo RT consult completed, pt smokes 1/2 ppd, uses Albuterol nebs as needed and Spiriva daily at home. Breath sounds are diminished t/o, I asked pt if she feels like she needs a breathing tx at this time, she said no. I told her to let us know if she changes her mind. Addendum entered by Meliton Galindo 04/17/25 16:03: Pt has YECENIA and used to have Shannan cpap but returned machine due to recall, still waiting on replacement device. Addendum entered by Meliton Galindo 04/17/25 17:17: Correction, pt does not use Spiriva at home, she uses Symbicort BID Initialized on 04/17/25 16:01 - END OF NOTE Assessment/Plan (1) Incarcerated hernia Current Visit: Yes Status: Acute Assessment & Plan: -NPO. -NG tube placement for decompression per surgery. -Continue IV ceftriaxone + metronidazole. -IVF -Surgery consulted Eva Mendes- plan for surgical intervention this evening -Strict I/O and serial abdominal examinations. -Pain control -supplemental oxygen - baseline 4L - titrate as needed to maintain goal spo2> 89% 04/18: -Continue NPO -NG to LIS -Meds resumed via NG -IVF - LR at 100mls/her - per surgery -Continue pain control -PODS#1 - (-)BM/flatulence -Strict I&O -Continue ceftriaxone/Flagyl -Surgery following -WBC reviewed at 14.9 Code(s): K46.0 - UNSP ABDOMINAL HERNIA WITH OBSTRUCTION, WITHOUT GANGRENE (2) Abdominal pain Current Visit: Yes Status: Acute Assessment & Plan: -2/2 to incarcerated hernia see plan above Code(s): R10.9 - UNSPECIFIED ABDOMINAL PAIN (3) Nausea vomiting and diarrhea Current Visit: Yes Status: Acute Assessment & Plan: -2/2 to incarcerated hernia -Antiemetics as needed. -NG tube decompression -Fluid and electrolyte monitoring; replace as needed 06/18: resolved Code(s): R11.2 - NAUSEA WITH VOMITING, UNSPECIFIED; R19.7 - DIARRHEA, UNSPECIFIED (4) Leukocytosis Current Visit: Yes Status: Acute Assessment & Plan: -Trend CBC daily -Continue IV ceftriaxone/flagyl -Expect improvement post-surgical correction. 04/18: -WBC at 14.9- see above- continue IV abx Code(s): D72.829 - ELEVATED WHITE BLOOD CELL COUNT, UNSPECIFIED (5) COPD (chronic obstructive pulmonary disease) Current Visit: Yes Status: Acute Assessment & Plan: -Maintain at baseline 4L O2; titrate to SpO2 > 89%. -Continue home meds -Incentive spirometry as tolerated. -Avoid sedatives that worsen respiratory drive. -Resume inhalers/nebulizers as appropriate. 04/18: -on 4-5L; baseline 4L; titrate for spo2 goal > 89% (6) Depression Current Visit: Yes Status: Acute Assessment & Plan: -Continue home meds s/p surgery Code(s): F32.A - DEPRESSION, UNSPECIFIED (7) History of lung cancer Current Visit: Yes Status: Acute Assessment & Plan: -s/p radiation 2023 Code(s): Z85.118 - PERSONAL HISTORY OF MALIGNANT NEOPLASM OF BRONCHUS AND LUNG (8) Smoker Current Visit: Yes Status: Acute Assessment & Plan: -Smokes 1/2 PPD advised cessation -Nicotine patch while IP VTE: SCD for now PPI: protonix Dispo: 2-3 days pending surgery eval Plan of care time spent > 40 mins Code(s): K46.0 - UNSP ABDOMINAL HERNIA WITH OBSTRUCTION, WITHOUT GANGRENE (2) Abdominal pain Current Visit: Yes Status: Acute Code(s): R10.9 - UNSPECIFIED ABDOMINAL PAIN (3) Nausea vomiting and diarrhea Current Visit: Yes Status: Acute Code(s): R11.2 - NAUSEA WITH VOMITING, UNSPECIFIED; R19.7 - DIARRHEA, UNSPECIFIED (4) Leukocytosis Current Visit: Yes Status: Acute Code(s): D72.829 - ELEVATED WHITE BLOOD CELL COUNT, UNSPECIFIED (5) COPD (chronic obstructive pulmonary disease) Current Visit: Yes Status: Acute (6) Depression Current Visit: Yes Status: Acute Code(s): F32.A - DEPRESSION, UNSPECIFIED (7) History of lung cancer Current Visit: Yes Status: Acute Code(s): Z85.118 - PERSONAL HISTORY OF MALIGNANT NEOPLASM OF BRONCHUS AND LUNG (8) Smoker Current Visit: Yes Status: Acute Code(s): F17.200 - NICOTINE DEPENDENCE, UNSPECIFIED, UNCOMPLICATED
[2025-04-18] MEDS: NICODERM CQ 14 MG TOP SCH (14:09)
[2025-04-18] MEDS: Dextrose 5%-Lr IV Solution 1000 ML 1,000 ML IV SCH (16:36)
[2025-04-18] MEDS: Spiriva 18 Mcg/Cap Inhaler IH SCH (17:33)
[2025-04-18] MEDS: NON-FORMULARY ITEM (Budesonide/Formoterol Fumarate [Budesonide-Formoterol 160-4.5] 10.2 GM IH SCH (19:13)
[2025-04-18] MEDS: ZOCOR 20MG NG SCH (20:57)
[2025-04-18] MEDS: PROTONIX 40 MG IV IV SCH (21:05)
[2025-04-18] MEDS: ROCEPHIN 1 GM / 100 ML NaCl 1 GM/100 ML IVPB IV SCH (21:05)
[2025-04-18] MEDS: Zofran 4 MG/2 ML VIAL IV PRN (21:45)
[2025-04-19 05:00] LABS: BASOPHIL % 0.3 % (0.1-1.2); Basophil (Absolute #) 0.04 x10^3/uL (0.01-0.08); Eosinophil (Absolute #) 0.07 x10^3/uL (0.04-0.36); Hematocrit 35.3 % (34.1-44.9); Hemoglobin 11.2 g/dL (11.2-15.7); IMMATURE GRAN # 0.04 x10^3u/L (0.001-0.031); IMMATURE GRAN % 0.3 % (0.001-0.429); Lymphocyte (Absolute #) 1.09 x10^3/uL (1.18-3.74); Mean Corpuscular Hemoglobin 31.1 pg (25.6-32.2); Mean Corpuscular Hgb Concent. 31.7 g/dL (32.2-35.5); Monocyte (Absolute #) 1.05 x10^3/uL (0.24-0.86); NUCLEATED RBC # 0.00 x10^3u/L (0.00-0.012); NUCLEATED RBC % 0.0 % (0.00-0.2); Platelet Count 188 x10^3/uL (182-369); Red Blood Count 3.60 x10^6/uL (3.93-5.22); White Blood Count 12.8 x10^3/uL (3.98-10.04)
[2025-04-19 05:14] LABS: Calcium 8.8 mg/dL (8.4-10.2); Carbon Dioxide 33.0 mmol/L (22-30); Creatinine 1 0.43 mg/dL (0.52-1.04); EST GLOMERULAR FILTRATION RATE 109.2 ML/MIN; Glucose 101.0 mg/dL (74-106); Potassium 3.1 mmol/L (3.5-5.1); SGOT/AST 21.0 U/L (14-36); SGPT/ALT 9.0 U/L (0-35); Total Protein 6.0 g/dL (6.3-8.2)
[2025-04-19] MEDS: POTASSIUM CHLORIDE 20 mEq IN WATER 100ML 20 MEQ/100 ML BAG IV ONE (05:56)
[2025-04-19] MEDS: ENOXAPARIN SODIUM SQ SCH (09:30)
--- NOTE | 2025-04-19 10:22 | OP ---
SURGERY DATE/TIME: 04/17/2025 [id number] PREOPERATIVE DIAGNOSIS: Incarcerated ventral hernia with small bowel obstruction. POSTOPERATIVE DIAGNOSIS: Strangulated ventral hernia with small bowel obstruction. PROCEDURES: 1) Strangulated ventral hernia repair, 5 cm defect. 2) Small bowel resection with anastomosis. 3) Partial omentectomy. SURGEON: Sang Mendes MD ANESTHESIA: General. ESTIMATED BLOOD LOSS: 150 mL. COMPLICATIONS: None. SPECIMENS: 1) Omentum. 2) Hernia sac. 3) Small bowel. DRAIN: 10 KATE x1. FINDINGS: Necrotic loop of small bowel incarcerated in a lower midline incisional ventral hernia. Also, enlargement of omentum incarcerated in the hernia. INDICATIONS: This patient presents with the above diagnoses and need for emergent surgery. After discussing the risks and benefits of procedure, the patient wished to proceed. DESCRIPTION OF PROCEDURE AND FINDINGS: The patient was brought to the operating room, placed under general anesthesia in supine position. The abdomen prepped and draped in sterile fashion. A midline incision was made over the medial aspect of the hernia. The hernia contents are sticking pretty far out to the right side but under imaging, the defect is in the midline, so I reopened her midline scar from a prior incision and then dissected down the fascia with cautery and then dissected the hernia sac out from the surrounding subcutaneous tissues completely free of them. I opened the hernia sac sharply and then further opened it directly with electrocautery with the contents protected after opening the hernia sac. There is a large amount of omentum here that are covering up the small bowel. I took some adhesions down off the omentum to the small bowel and I was then able to see the gangrenous small bowel. I used a vessel sealer to resect the large amount of omentum that was stuck to this hernia. This was with a LigaSure. There is a second hernia a little bit above this hernia and the total defect distance measures 5 or 6 cm from the top edge of the top one to the bottom edge of the bottom one. I connected the fascial bridge between these 2 hernia defects to allow us some space to work to do the small bowel resection. I also resected some additional omentum that was blocking us from getting the small bowel eviscerated. The small bowel was eviscerated a little further, so we had enough healthy bowel to do our anastomosis. The wounds were protected with towels. The [id number] anastomosis was then fashioned, creating enterotomies and then stapling the antimesenteric side together with a 75 blue ANJELICA stapler. There was some bleeding from the posterior staple line, and I had to oversaw a couple places on the inside staple line to gain hemostasis. We then fired a second firing of the stapler to close off the enterotomies and complete the anastomosis. The mesentery was then transected with the LigaSure. The mesenteric defect was closed with 3-0 PDS running suture. Several 3-0 Vicryl interrupted sutures were placed for hemostasis on the end staple line. The anastomosis looked satisfactory. It looks widely patent and vascularized. The anastomosis was returned to the abdomen. I did have to enlarge the fascia a little bit more to allow to go back in. I then removed all the hernia sac and cleaned off the fascia. The hernia was then closed with #1 PDS suture in a running fashion from the top and from the bottom and tying the sutures together at the middle port point. The wound was copiously irrigated. Gloves have been changed by all members of the OR team after the bowel was reconnected. A 10 KATE was brought in through the right lower quadrant and placed in the subcutaneous tissue. The skin was closed with rody. Dressings were applied. The patient recovered and taken to PACU in stable but guarded condition given her severe COPD.
--- NOTE | 2025-04-19 12:05 | CONS ---
DATE OF CONSULTATION: 04/16/2025 REFERRING PROVIDER: ED physician. CHIEF COMPLAINT: Abdominal pain. HISTORY OF PRESENT ILLNESS: This 64-year-old female presents with acute onset of right lower quadrant pain beginning this morning. She had a sharp constant 10/10 pain, feeling like something is exploding inside. She also reports nausea, vomiting, and diarrhea that started shortly after this as well as increased shortness of breath above her baseline which she is typically on 4L of oxygen. She denies any prior episodes. She has a known history of this hernia. PAST MEDICAL HISTORY: Lung cancer treated with radiation in 2023, COPD. PAST SURGICAL HISTORY: Cholecystectomy and . SOCIAL HISTORY: Fsba-vnlc-olh-day smoker. FAMILY HISTORY: Noncontributory. REVIEW OF SYSTEMS: Denies chest pain or fever. Shortness of breath is worse than usual. PHYSICAL EXAMINATION: GENERAL: Chronically ill-appearing in moderate distress. HEENT: Sclerae anicteric. Extraocular motions are intact. NECK: Supple. No JVD. CHEST: Breathing fairly comfortable on nasal cannula but short of breath when she talks a lot. ABDOMEN: Incarcerated lower midline hernia that bulges off to the left side but starts from the midline. This is quite tender and large. The rest of her abdomen does not have any significant tenderness. ASSESSMENT AND PLAN: Incarcerated or strangulated incisional ventral hernia, prior section. Case discussed with ED physician. CT scan images personally reviewed, and the radiologist reports a right inguinal hernia but this is clearly a midline defect that protrudes out to the right lower quadrant with a loop of small bowel incarcerated on imaging. Reviewed CBC, CMP. Discussed the pathology with the patient and at least incarcerated bowel possibly strangulated. We discussed that she has increased risk of surgery given her severe COPD on 4L of oxygen and she may need ventilator support postoperatively. We discussed that there is really no alternative besides surgery except for palliative care as this was most likely a terminal problem if not addressed surgically. We discussed potential use of mesh if there is no need for bowel resection and the field appears quite clean. We also discussed that we may just do a suture repair. We discussed likely re-anastomosis if bowel is resected. We discussed other potential medical and surgical complications, and the patient would like to proceed with surgery. We will plan for emergent surgery.
--- NOTE | 2025-04-19 12:21 | PCM.NOTE ---
Date and Time: 04/19/25 1215 Subjective Assessment: 04/19/25 Met with patient bedside. She is POD#2 s/p hernia repair and bowel resection. Endorses she is doing well. Pain controlled with numerical pain rating at 5/10 at surgical incision site. MLI with surgical dressing, some shadow drainage. KATE x 1 with moderate sanguineous drainage. Hypoactive BS. No flatulence or bowel movements. NG pulled out by pt and she is refusing for it to be replaced. Nurse has a call out to GS to discuss. Continue Ceftriaxone/Flagyl . K+ 3.1 and replaced. UC + klebsiella. BC x2 negative. WBC improved at 12.8. Continue D5NS at 100ml/hr as pt is NPO. Denies fever,cough, sob, cp, dizziness, N/V/D. - Review of Systems Constitutional: No Fever, No Chills Eyes: No Symptoms Ears, Nose, & Throat: No Symptoms Respiratory: No Cough, No Short Of Breath Cardiac: No Chest Pain, No Edema, No Syncope Abdominal/Gastrointestinal: Abdominal Pain, No Nausea, No Vomiting, No Diarrhea Genitourinary Symptoms: No Dysuria Musculoskeletal: No Back Pain, No Neck Pain Skin: No Rash Neurological: No Dizziness, No Focal Weakness, No Sensory Changes Psychological: No Symptoms Endocrine: No Symptoms Hematologic/Lymphatic: No Symptoms Immunological/Allergic: No Symptoms Objective Exam General Appearance: no apparent distress, alert Neurologic Exam: alert, oriented x 3, cooperative, normal mood/affect, nml cerebellar function, sensation nml, No motor deficits Skin Exam: normal color, warm, dry Wound Assessment: Skin/Wound Assessment Wound/Incision Assessment Start: 04/17/25 20:59 Text: Status: Active Freq: Q4H Protocol: Document 04/19/25 04:00 AK (Rec: 04/19/25 04:29 AK [id number]) Wound/Incision Assessment Medial Abdomen Wound Assessment Shift Assessment Wound Type Incision Wound Stage Non Pressure Wound Dressing Status Dry & Intact Drainage Amount Minimal Drainage Description Sanguineous Drainage Odor None/Absent General Appearance Well Approximated Primary Dressing Border Gauze Comment dressing with small amount of shadowing - ESTHELA wound Right Lower Abdomen Drain Type KATE drain Drainage Description Sanguineous Odor None/Absent Drainage Amount (ml) 5 Comment dressing CDI Wound Photo Photo Taken No Eye Exam: PERRL, EOMI, eyes nml inspection Ears, Nose, Throat Exam: normal ENT inspection, pharynx normal, moist mucous membranes Neck Exam: normal inspection, non-tender, supple, full range of motion Respiratory Exam: normal breath sounds, lungs clear, No respiratory distress Cardiovascular Exam: regular rate/rhythm, normal heart sounds Gastrointestinal/Abdomen Exam: soft, tenderness, other (decreased BS X4), No mass Extremity Exam: normal inspection, normal range of motion Back Exam: normal inspection, normal range of motion, No CVA tenderness, No vertebral tenderness Pelvic Exam: deferred Rectal Exam: deferred Objective Data Vital Signs: Vital Signs - 24 hr Temp Pulse Resp BP Pulse Ox 04/19/25 10:00 92 H 23 132/76 04/19/25 09:00 91 H 15 154/85 95 04/19/25 08:00 97.3 F 87 17 126/84 98 04/19/25 07:05 94 H 17 96 04/19/25 07:01 97 H 16 131/80 92 L 04/19/25 06:00 86 17 134/89 99 04/19/25 05:00 93 H 15 151/73 98 04/19/25 04:30 97 F 90 28 H 143/86 97 04/19/25 04:00 89 17 04/19/25 03:00 89 17 130/81 97 04/19/25 02:00 81 14 153/103 97 04/19/25 01:00 86 15 126/77 98 04/19/25 00:01 97 F 88 14 117/80 95 04/18/25 23:54 88 04/18/25 23:53 15 04/18/25 23:00 90 13 153/91 92 L 04/18/25 22:00 85 32 H 150/83 97 04/18/25 21:00 90 16 133/76 94 L 04/18/25 20:04 89 16 136/84 94 L 04/18/25 20:02 97 F 85 15 136/84 94 L 04/18/25 19:28 90 15 04/18/25 19:00 97 F 90 15 136/88 97 04/18/25 18:03 91 H 19 160/86 97 04/18/25 17:02 91 H 18 97 04/18/25 17:00 95 H 21 159/95 95 04/18/25 16:00 92 H 27 H 126/88 94 L 04/18/25 15:00 97.7 F 89 18 139/94 93 L 04/18/25 14:00 89 18 121/82 90 L 04/18/25 13:51 91 H 16 95 04/18/25 13:00 90 16 140/96 92 L Pain Assessment - Last Documented Pain Intensity 6 Pain Scale Used 0-10 Pain Scale Intake and Output: Intake & Output 04/17/25 04/18/25 04/19/25 04/20/25 11:59 11:59 11:59 11:59 Intake Total 1228 2170 Output Total 1425 2445 Balance -197 -275 Weight 64.3 kg 64.9 kg Lab Results: Lab Results-Last 24 Hours 04/18/25 04/18/25 04/18/25 Range/Units 16:17 17:44 23:45 WBC (3.98-10.04) x10^3/uL RBC (3.93-5.22) x10^6/uL Hgb (11.2-15.7) g/dL Hct (34.1-44.9) % MCV (79.4-94.8) fL MCH (25.6-32.2) pg MCHC (32.2-35.5) g/dL RDW (11.7-14.4) % Plt Count (182-369) x10^3/uL MPV (9.4-12.3) fL Gran % (34.0-71.1) % Immature Gran % (Auto) (0.001-0.429) % Nucleat RBC Rel Count (0.00-0.2) % Eos # (Auto) (0.04-0.36) x10^3/uL Immature Gran # (Auto) (0.001-0.031) x10^3u/L Absolute Lymphs (auto) (1.18-3.74) x10^3/uL Absolute Monos (auto) (0.24-0.86) x10^3/uL Absolute Nucleated RBC (0.00-0.012) x10^3u/L Lymphocytes % (19.3-51.7) % Monocytes % (4.7-12.5) % Eosinophils % (0.7-5.8) % Basophils % (0.1-1.2) % Absolute Granulocytes (1.56-6.13) x10^3/uL Basophils # (0.01-0.08) x10^3/uL Sodium (135-145) mmol/L Potassium (3.5-5.1) mmol/L Chloride (98-107) mmol/L Carbon Dioxide (22-30) mmol/L Anion Gap (5-15) MEQ/L BUN (7-17) mg/dL Creatinine (0.52-1.04) mg/dL Estimated GFR ML/MIN Glucose (74-106) mg/dL POC Glucometer 77 90 103 (74 to 106) mg/dL Calcium (8.4-10.2) mg/dL Total Bilirubin (0.2-1.3) mg/dL AST (14-36) U/L ALT (0-35) U/L Alkaline Phosphatase (38-126) U/L Serum Total Protein (6.3-8.2) g/dL Albumin (3.5-5.0) g/dL 04/19/25 04/19/25 04/19/25 Range/Units 04:30 04:30 07:34 WBC 12.8 H (3.98-10.04) x10^3/uL RBC 3.60 L (3.93-5.22) x10^6/uL Hgb 11.2 (11.2-15.7) g/dL Hct 35.3 (34.1-44.9) % MCV 98.1 H (79.4-94.8) fL MCH 31.1 (25.6-32.2) pg MCHC 31.7 L (32.2-35.5) g/dL RDW 13.2 (11.7-14.4) % Plt Count 188 (182-369) x10^3/uL MPV 10.0 (9.4-12.3) fL Gran % 82.2 H (34.0-71.1) % Immature Gran % (Auto) 0.3 (0.001-0.429) % Nucleat RBC Rel Count 0.0 (0.00-0.2) % Eos # (Auto) 0.07 (0.04-0.36) x10^3/uL Immature Gran # (Auto) 0.04 H (0.001-0.031) x10^3u/L Absolute Lymphs (auto) 1.09 L (1.18-3.74) x10^3/uL Absolute Monos (auto) 1.05 H (0.24-0.86) x10^3/uL Absolute Nucleated RBC 0.00 (0.00-0.012) x10^3u/L Lymphocytes % 8.5 L (19.3-51.7) % Monocytes % 8.2 (4.7-12.5) % Eosinophils % 0.5 L (0.7-5.8) % Basophils % 0.3 (0.1-1.2) % Absolute Granulocytes 10.46 H (1.56-6.13) x10^3/uL Basophils # 0.04 (0.01-0.08) x10^3/uL Sodium 134 L (135-145) mmol/L Potassium 3.1 L (3.5-5.1) mmol/L Chloride 95 L (98-107) mmol/L Carbon Dioxide 33 H (22-30) mmol/L Anion Gap 8.8 (5-15) MEQ/L BUN 8 (7-17) mg/dL Creatinine 0.43 L (0.52-1.04) mg/dL Estimated GFR 109.2 ML/MIN Glucose 101 (74-106) mg/dL POC Glucometer 103 (74 to 106) mg/dL Calcium 8.8 (8.4-10.2) mg/dL Total Bilirubin 0.40 (0.2-1.3) mg/dL AST 21 (14-36) U/L ALT 9 (0-35) U/L Alkaline Phosphatase 67 (38-126) U/L Serum Total Protein 6.0 L (6.3-8.2) g/dL Albumin 3.2 L (3.5-5.0) g/dL 04/19/25 04/19/25 Range/Units 10:15 11:35 WBC (3.98-10.04) x10^3/uL RBC (3.93-5.22) x10^6/uL Hgb (11.2-15.7) g/dL Hct (34.1-44.9) % MCV (79.4-94.8) fL MCH (25.6-32.2) pg MCHC (32.2-35.5) g/dL RDW (11.7-14.4) % Plt Count (182-369) x10^3/uL MPV (9.4-12.3) fL Gran % (34.0-71.1) % Immature Gran % (Auto) (0.001-0.429) % Nucleat RBC Rel Count (0.00-0.2) % Eos # (Auto) (0.04-0.36) x10^3/uL Immature Gran # (Auto) (0.001-0.031) x10^3u/L Absolute Lymphs (auto) (1.18-3.74) x10^3/uL Absolute Monos (auto) (0.24-0.86) x10^3/uL Absolute Nucleated RBC (0.00-0.012) x10^3u/L Lymphocytes % (19.3-51.7) % Monocytes % (4.7-12.5) % Eosinophils % (0.7-5.8) % Basophils % (0.1-1.2) % Absolute Granulocytes (1.56-6.13) x10^3/uL Basophils # (0.01-0.08) x10^3/uL Sodium (135-145) mmol/L Potassium 3.3 L (3.5-5.1) mmol/L Chloride (98-107) mmol/L Carbon Dioxide (22-30) mmol/L Anion Gap (5-15) MEQ/L BUN (7-17) mg/dL Creatinine (0.52-1.04) mg/dL Estimated GFR ML/MIN Glucose (74-106) mg/dL POC Glucometer 119 H (74 to 106) mg/dL Calcium (8.4-10.2) mg/dL Total Bilirubin (0.2-1.3) mg/dL AST (14-36) U/L ALT (0-35) U/L Alkaline Phosphatase (38-126) U/L Serum Total Protein (6.3-8.2) g/dL Albumin (3.5-5.0) g/dL Radiology Exams: Radiology Procedures Category Date Time Status ABDOMEN AND PELVIS W CONTRAST [CT] Stat Exams 04/17/25 12:25 Completed CHEST 1 VIEW (PORTABLE) Stat Exams 04/17/25 14:55 Completed Medications: Medications Generic Name Dose Route Start Last Admin Trade Name Freq PRN Reason Stop Dose Admin Acetaminophen 650 mg 04/18/25 07:56 04/19/25 04:09 Acetaminophen 650 Mg Supp.Rect RC 05/18/25 07:55 650 mg Q4H PRN PRN Administration TEMP> 100, PAIN, HEADACHE Acetaminophen 650 mg 04/18/25 07:57 Acetaminophen 325 Mg Tablet NG 05/18/25 07:48 Q4H PRN PRN temp > 100 Albuterol Sulfate 2 puff 04/17/25 17:05 Albuterol Common Canister Inhaler IH 05/17/25 17:04 Q6HPRN PRN SHORTNESS OF BREATH/WHEEZING Albuterol Sulfate 2.5 mg 04/17/25 17:05 04/19/25 07:05 Albuterol Sulfate 2.5 Mg/3 Ml Neb 05/17/25 17:04 2.5 mg Q4HPRN PRN Administration SHORTNESS OF BREATH/WHEEZING Albuterol/Ipratropium 3 ml 04/17/25 16:33 04/18/25 17:02 Ipratropium/Albuterol Sulfate 3 Ml Ampul.Neb 05/17/25 18:59 3 ml Q6HRT PRN Administration SHORTNESS OF BREATH/WHEEZING Budesonide 0.5 mg 04/17/25 22:00 04/19/25 07:04 Budesonide 0.5 Mg/2 Ml Ampul.Neb. 05/17/25 21:59 0.5 mg BID THANIA Administration Buspirone HCl 15 mg 04/18/25 10:00 04/19/25 09:34 Buspirone Hcl 5 Mg Tablet NG 05/18/25 09:59 15 mg TID THANIA Administration Cholecalciferol 2,000 unit 04/18/25 10:00 04/19/25 09:34 Cholecalciferol (Vitamin D3) 1000 Unit Tablet NG 05/18/25 09:59 2,000 unit DAILY THANIA Administration Enoxaparin Sodium 40 mg 04/19/25 10:00 04/19/25 09:30 Enoxaparin Sodium 40 Mg/0.4 Ml Syringe SQ 05/19/25 09:59 40 mg DAILY THANIA Administration Fluoxetine HCl 60 mg 04/18/25 10:00 04/19/25 09:34 Fluoxetine Hcl 20 Mg Cap NG 05/18/25 09:59 60 mg DAILY THANIA Administration Fluticasone Propionate 0 gm 04/18/25 10:00 04/19/25 09:32 Fluticasone Propionate 16 Gm Bottle Nasal Quinlan NS 05/18/25 09:59 1 gm DAILY THANIA Administration Guaifenesin 10 ml 04/18/25 08:02 Guaifenesin 100 Mg/5 Ml 118 Ml Bottle NG 05/18/25 08:01 Q4H PRN PRN Metronidazole 500 mg in 100 mls @ 200 mls/hr 04/17/25 22:00 04/19/25 05:10 Flagyl 500 Mg Ivpb IV 05/17/25 21:59 200 mls/hr Q6HT THANIA Administration Ceftriaxone Sodium 1 gm in 100 mls @ 200 mls/hr 04/18/25 22:00 04/18/25 21:05 Rocephin 1 Gm / 100 Ml Nacl IV 05/18/25 21:59 200 mls/hr Q24H22 THANIA Administration Dextrose/Lactated Ringer's 1,000 mls @ 100 mls/hr 04/18/25 16:30 04/19/25 04:53 Dextrose 5%-Lr Iv Solution 1000 Ml IV 05/18/25 16:29 100 mls/hr .Q10H THANIA Administration Loratadine 10 mg 04/18/25 10:00 04/19/25 09:34 Loratadine 10 Mg Tablet NG 05/18/25 09:59 10 mg DAILY THANIA Administration Miscellaneous Information 1 each 04/18/25 07:30 Medication Intervention 1 Each Each 05/18/25 07:29 .RN TO CHECK THANIA Miscellaneous Information 1 each 04/18/25 10:00 Medication Intervention 1 Each Each 05/18/25 09:59 .RN TO CHECK WITH PT THANIA Montelukast Sodium 10 mg 04/18/25 10:00 04/19/25 09:34 Montelukast Sodium 10 Mg Tablet NG 05/18/25 09:59 10 mg DAILY THANIA Administration Morphine Sulfate 5 mg 04/17/25 21:42 04/18/25 20:58 Morphine Sulfate 10 Mg/Ml Injection IV 04/22/25 21:41 5 mg Q4H PRN PRN Administration PAIN Nicotine 14 mg 04/18/25 15:00 04/19/25 09:33 Nicotine 14 Mg/Patch Patch TOP 05/18/25 14:59 14 mg Q24H10 THANIA Administration Ondansetron HCl 4 mg 04/17/25 16:33 04/19/25 10:36 Ondansetron Hcl 4 Mg/2 Ml Vial IV 05/17/25 16:32 4 mg Q6H PRN PRN Administration NAUSEA/VOMITING Pantoprazole Sodium 40 mg 04/18/25 22:00 04/18/25 21:05 Pantoprazole 40 Mg Vial IV 05/18/25 21:59 40 mg Q24H22 THANIA Administration Roflumilast 500 mcg 04/18/25 10:00 04/19/25 09:35 Roflumilast 500 Mcg Tablet NG 05/18/25 09:59 500 mcg DAILY THANIA Administration Simvastatin 20 mg 04/18/25 22:00 04/18/25 20:57 Simvastatin 20 Mg Tablet NG 05/18/25 21:59 20 mg QPM THANIA Administration Tiotropium [place] 1 ea 04/18/25 17:00 04/18/25 17:33 Tiotropium [place] 18 Mcg/Cap Inhaler IH 05/18/25 16:59 1 ea DINNER THANIA Administration Discontinued Medications Generic Name Dose Route Start Last Admin Trade Name Freq PRN Reason Stop Dose Admin Acetaminophen 650 mg 04/18/25 07:49 Acetaminophen 325 Mg Tablet PO 05/18/25 07:48 Q4H PRN PRN temp > 100 Bupivacaine HCl Confirm 04/17/25 17:11 Bupivacaine Hcl 2.5 Mg/Ml 10 Ml Administered 04/17/25 17:12 Dose 20 ml .ROUTE .STK-MED ONE Bupivacaine HCl/Epinephrine Bitart Confirm 04/17/25 18:57 Bupivacaine Hcl/Epinephrine 10 Ml Vial Administered 04/17/25 18:58 Dose 40 ml .ROUTE .STK-MED ONE Fentanyl Citrate Confirm 04/17/25 16:58 Fentanyl Citrate 100 Mcg/2 Ml* Vial Administered 04/17/25 16:59 Dose 100 mcg .ROUTE .STK-MED ONE Guaifenesin 1,200 mg 04/18/25 10:00 Guaifenesin 600 Mg Tablet Er PO 05/18/25 09:59 BID THANIA Sodium Chloride 1,000 mls @ 999 mls/hr 04/17/25 12:25 04/17/25 13:41 Sodium Chloride 0.9% 1000 Ml IV 04/17/25 13:25 Infused .Q1H1M STA Infusion Sodium Chloride Confirm 04/17/25 12:33 Sodium Chloride 0.9% 1000 Ml Administered 04/17/25 12:34 Dose 1,000 mls @ ud .ROUTE .STK-MED ONE Ceftriaxone Sodium 1 gm in 100 mls @ 200 mls/hr 04/17/25 14:48 04/17/25 16:07 Rocephin 1 Gm / 100 Ml Nacl IV 04/17/25 15:17 200 mls/hr STAT ONE Administration Metronidazole 500 mg in 100 mls @ 200 mls/hr 04/17/25 14:48 04/17/25 16:28 Flagyl 500 Mg Ivpb IV 04/17/25 15:17 200 mls/hr STAT STA Administration Sodium Chloride 1,000 mls @ 100 mls/hr 04/17/25 15:00 04/18/25 03:21 Sodium Chloride 0.9% 1000 Ml IV 05/17/25 14:59 Not Given .Q10H THANIA Ceftriaxone Sodium Confirm 04/17/25 15:10 Rocephin 1 Gm / 100 Ml Nacl Administered 04/17/25 15:11 Dose 1 gm in 100 mls @ ud IV .STK-MED ONE Ceftriaxone Sodium 1 gm in 100 mls @ 200 mls/hr 04/18/25 10:00 Rocephin 1 Gm / 100 Ml Nacl IV 05/18/25 09:59 Q24H10 THANIA Metronidazole 500 mg in 100 mls @ 200 mls/hr 04/17/25 18:00 04/17/25 18:16 Flagyl 500 Mg Ivpb IV 05/17/25 17:59 Not Given Q6HT THANIA Lactated Ringer's Confirm 04/17/25 17:11 Lactated Ringers Administered 04/17/25 17:12 Dose 1,000 mls @ ud IV .STK-MED ONE Ceftriaxone Sodium 1 gm in 100 mls @ 200 mls/hr 04/18/25 10:00 Rocephin 1 Gm / 100 Ml Nacl IV 05/18/25 09:59 Q24H10 THANIA Lactated Ringer's 1,000 mls @ 100 mls/hr 04/17/25 22:00 04/18/25 14:33 Lactated Ringers IV 05/17/25 21:59 100 mls/hr .Q10H THANIA Administration Ceftriaxone Sodium 1 gm in 100 mls @ 200 mls/hr 04/17/25 22:00 04/17/25 22:03 Rocephin 1 Gm / 100 Ml Nacl IV 05/17/25 22:05 200 mls/hr Q24H10 THANIA Administration Potassium Chloride 20 meq in 100 mls @ 50 mls/hr 04/19/25 05:31 04/19/25 05:56 Potassium Chloride 20 Meq In Water 100ml IV 04/19/25 07:30 50 mls/hr STAT ONE Administration Midazolam HCl Confirm 04/17/25 16:58 Midazolam Hcl 2 Mg/2 Ml Vial Administered 04/17/25 16:59 Dose 2 mg .ROUTE .STK-MED ONE Miscellaneous Information 1 each 04/18/25 07:30 Medication Intervention 1 Each Each 05/18/25 07:29 .RN TO CHECK THANIA Morphine Sulfate 2 mg 04/17/25 12:25 04/17/25 12:38 Morphine Sulfate 2 Mg/Ml Inj IV 04/17/25 12:26 2 mg STAT ONE Administration Morphine Sulfate Confirm 04/17/25 12:32 Morphine Sulfate 2 Mg/Ml Inj Administered 04/17/25 12:33 Dose 2 mg .ROUTE .STK-MED ONE Morphine Sulfate 4 mg 04/17/25 14:48 04/17/25 14:53 Morphine Sulfate 4 Mg/Ml Injection IV 04/17/25 14:49 4 mg STAT ONE Administration Morphine Sulfate Confirm 04/17/25 14:52 Morphine Sulfate 4 Mg/Ml Injection Administered 04/17/25 14:53 Dose 4 mg .ROUTE .STK-MED ONE Morphine Sulfate 2 mg 04/17/25 16:35 04/17/25 22:00 Morphine Sulfate 2 Mg/Ml Inj IV 04/22/25 16:34 2 mg Q4H PRN PRN Administration SEVERE PAIN Non-Formulary Medication 2 puffs 04/17/25 22:00 04/18/25 19:13 Budesonide/Formoterol Fumarate [Budesonide-Formoterol 160-4.5] IH 05/17/25 21:59 Not Given BID THANIA Ondansetron HCl 4 mg 04/17/25 12:25 04/17/25 12:38 Ondansetron Hcl 4 Mg/2 Ml Vial IV 04/17/25 12:26 4 mg STAT ONE Administration Ondansetron HCl Confirm 04/17/25 12:32 Ondansetron Hcl 4 Mg/2 Ml Vial Administered 04/17/25 12:33 Dose 4 mg .ROUTE .STK-MED ONE Pantoprazole Sodium 40 mg 04/17/25 16:45 04/17/25 22:02 Pantoprazole 40 Mg Vial IV 05/17/25 16:44 40 mg Q24H THANIA Administration Phenylephrine HCl Confirm 04/17/25 18:13 Phenylephrine 10 Mg/Ml Vial Administered 04/17/25 18:14 Dose 10 mg .ROUTE .STK-MED ONE Propofol Confirm 04/17/25 16:58 Propofol 200 Mg/20 Ml Vial Administered 04/17/25 16:59 Dose 200 mg IV .STK-MED ONE Rocuronium [place] Confirm 04/17/25 16:58 Rocuronium [place] 50 Mg/5 Ml Vial Administered 04/17/25 16:59 Dose 50 mg IV .STK-MED ONE Succinylcholine Chloride Confirm 04/17/25 16:58 Succinylcholine Chloride 200mg/10 Ml Vial Administered 04/17/25 16:59 Dose 100 mg .ROUTE .STK-MED ONE Sugammadex Sodium Confirm 04/17/25 19:15 Sugammadex Sodium 200 Mg/2 Ml Vial Administered 04/17/25 19:16 Dose 200 mg IV .STK-MED ONE Theophylline 300 mg 04/18/25 10:00 Theophylline Anhydrous 400 Mg Tab.Er.24hr Tablet NG 05/18/25 09:59 BID [facility] Multi-Disciplinary Progress Notes: Multi-Disciplinary Progress Notes 04/19/25 11:38 Case Management Note by Jackelyn Saul S/W PATIENT AND SHE SAYS SHE STILL PLANS TO RETURN HOME TO HER PLOF AT TIME OF DC. Initialized on 04/19/25 11:38 - END OF NOTE Assessment/Plan (1) Incarcerated hernia Current Visit: Yes Status: Acute Assessment & Plan: - Pt pulled out NG- and refusing to be replaced. - GS to be made aware by nurse - CHARISMA Jo today. - NPO - No BM nor passing gas as of this AM - POD #2 from surgery - Continue ceftriaxone/Flagyl - Surgery following - CBC, CMP reviewed - Narcotic pain control IV - BX x2 negative - KATE drain x1 in place - Abd. binder in place Code(s): K46.0 - UNSP ABDOMINAL HERNIA WITH OBSTRUCTION, WITHOUT GANGRENE (2) UTI (urinary tract infection) Current Visit: Yes Status: Acute Assessment & Plan: - UC + Klebsiella Pneumoniae - repeat UC negative - Continue IV antibiotics Code(s): N39.0 - URINARY TRACT INFECTION, SITE NOT SPECIFIED (3) Leukocytosis Current Visit: Yes Status: Acute Assessment & Plan: - WBC 12.8- improving- trend Code(s): D72.829 - ELEVATED WHITE BLOOD CELL COUNT, UNSPECIFIED (4) Abdominal pain Current Visit: Yes Status: Acute Assessment & Plan: - 2:2 hernia repain and bowel resection - CT Abd/Pelvis: 1. Picture suggestive of right-sided incarcerated inguinal hernia with omentum and small bowel content and subsequent small bowel obstruction. However, the appearance of two collapsed efferent and afferent bowel loops at the entry point of the hernia could result in a form of closed-loop obstruction, together with luminal dilatation and fatty stranding within the hernia sac ( however, there is normal enhancement of the bowel wall), which can suggest impending strangulation. Advise urgent surgical consultation. 2. A tiny fat-containing non-complicated periumbilical hernia. 3. Minimal circumferential uniform mural thickening of the pylorus is likely of inflammatory origin. Correlate clinically and further UGE if clinically warranted. 4. Multiple non-complicated colonic diverticulosis. 5. A small sliding hiatus hernia. 6. Fatty liver. 7. Bilateral emphysema with bilateral lower lobar more along right basal atelectatic changes, sequel of prior inflammatory process. Code(s): R10.9 - UNSPECIFIED ABDOMINAL PAIN (5) Nausea vomiting and diarrhea Current Visit: Yes Status: Acute Assessment & Plan: Assessment & Plan: -2/2 to incarcerated hernia -Antiemetics as needed. -NG tube decompression -Fluid and electrolyte monitoring; replace as needed Code(s): R11.2 - NAUSEA WITH VOMITING, UNSPECIFIED; R19.7 - DIARRHEA, UNS PECIFIED (6) Hypokalemia Current Visit: Yes Status: Acute Assessment & Plan: - K+ 3.1, repeat after replacement- 3.3 - Repeat IV replacement ordered- trend 2 hours after IV dose x1 given - Tele- ICU- critical care - Check Mg+ in AM - 2:2 N/V/D Code(s): E87.6 - HYPOKALEMIA (7) COPD (chronic obstructive pulmonary disease) Current Visit: Yes Status: Chronic Assessment & Plan: - Maintain at baseline 4L O2- 96% - Continue home meds - Incentive spirometry as tolerated. - Avoid sedatives that worsen respiratory drive. - Resume inhalers/nebulizers as appropriate. - Co2 33- trend- chronic (8) Depression Current Visit: Yes Status: Chronic Assessment & Plan: -Continue home meds s/p surgery Code(s): F32.A - DEPRESSION, UNSPECIFIED (9) History of lung cancer Current Visit: Yes Status: Chronic Assessment & Plan: -s/p radiation 2023 Code(s): Z85.118 - PERSONAL HISTORY OF MALIGNANT NEOPLASM OF BRONCHUS AND LUNG (10) Smoker Current Visit: Yes Status: Chronic Assessment & Plan: - Advised cessation- education provided - Nicotine patch Code(s): F17.200 - NICOTINE DEPENDENCE, UNSPECIFIED, UNCOMPLICATED (11) Hyperlipidemia Current Visit: Yes Status: Chronic Assessment & Plan: - Continue statin VTE: SCD for now PPI: Protonix IV Dispo: pending surgery eval Code status: Full Next of Kin: Martin Sarkar [phone] Plan of care/critical care time spent > 40 mins Code(s): E78.5 - HYPERLIPIDEMIA, UNSPECIFIED
[2025-04-19] MEDS: POTASSIUM CHLORIDE 20 mEq IN WATER 100ML 100 ML IV SCH (13:21)
[2025-04-20] MEDS: TYLENOL 325 MG NG PRN (00:23)
[2025-04-20 05:22] LABS: BASOPHIL % 0.4 % (0.1-1.2); Basophil (Absolute #) 0.04 x10^3/uL (0.01-0.08); Eosinophil (Absolute #) 0.11 x10^3/uL (0.04-0.36); Hematocrit 31.9 % (34.1-44.9); Hemoglobin 9.9 g/dL (11.2-15.7); IMMATURE GRAN # 0.03 x10^3u/L (0.001-0.031); IMMATURE GRAN % 0.3 % (0.001-0.429); Lymphocyte (Absolute #) 1.21 x10^3/uL (1.18-3.74); Mean Corpuscular Hemoglobin 30.7 pg (25.6-32.2); Mean Corpuscular Hgb Concent. 31.0 g/dL (32.2-35.5); Monocyte (Absolute #) 0.88 x10^3/uL (0.24-0.86); NUCLEATED RBC # 0.00 x10^3u/L (0.00-0.012); NUCLEATED RBC % 0.0 % (0.00-0.2); Platelet Count 168 x10^3/uL (182-369); Red Blood Count 3.23 x10^6/uL (3.93-5.22); White Blood Count 9.2 x10^3/uL (3.98-10.04)
[2025-04-20 05:42] LABS: Calcium 8.6 mg/dL (8.4-10.2); Carbon Dioxide 36.0 mmol/L (22-30); Creatinine 1 0.38 mg/dL (0.52-1.04); EST GLOMERULAR FILTRATION RATE 112.5 ML/MIN; Glucose 104.0 mg/dL (74-106); SGOT/AST 16.0 U/L (14-36); SGPT/ALT 7.0 U/L (0-35); Total Protein 5.6 g/dL (6.3-8.2)
[2025-04-20 05:44] LABS: Potassium 3.1 mmol/L (3.5-5.1)
[2025-04-20] MEDS: Klor Con PO ONE (07:05)
[2025-04-20] MEDS ORDERED: Robitussin 100 MG/5 ML PO PRN (07:48)
[2025-04-20] MEDS: K-LYTE PO SCH (11:15)
[2025-04-20] MEDS: Prozac 20 MG PO SCH (11:17)
[2025-04-20] MEDS: VITAMIN D PO SCH (11:17)
[2025-04-20] MEDS: BUSPAR 5 MG PO SCH (11:18)
[2025-04-20] MEDS: CLARITIN 10 MG PO SCH (11:18)
[2025-04-20] MEDS: Singulair 10 MG PO SCH (11:18)
[2025-04-20] MEDS: DALIRESP PO SCH (11:19)
--- NOTE | 2025-04-20 12:52 | PCM.NOTE ---
Date and Time: 04/20/25 1242 Subjective Assessment: 04/19/25 Met with patient bedside. She is POD#2 s/p hernia repair and bowel resection. Endorses she is doing well. Pain controlled with numerical pain rating at 5/10 at surgical incision site. MLI with surgical dressing, some shadow drainage. KATE x 1 with moderate sanguineous drainage. Hypoactive BS. No flatulence or bowel movements. NG pulled out by pt and she is refusing for it to be replaced. Nurse has a call out to GS to discuss. Continue Ceftriaxone/Flagyl . K+ 3.1 and replaced. UC + klebsiella. BC x2 negative. WBC improved at 12.8. Continue D5NS at 100ml/hr as pt is NPO. Denies fever,cough, sob, cp, dizziness, N/V/D. 04/20/25 Patient sitting up in bed. She states she is feeling better today overall. She walked 120 feet today with staff, without any problems. She has not had any bowel movements yet, however she is passing gas. She states that she does have a little bit of stomach pain but it is not too bad. She pulled her NG out yesterday and refused to have it replaced and surgery is okay with this. She still has a KATE drain x [address] She is requiring narcotic pain medicine still IV. Potassium was 3.1 today and replaced. Hemoglobin dropped to 9.9 from 11.2 yesterday. I asked nursing to tell surgery of this finding. White blood cell count is okay today at 9.2. Continue ceftriaxone and Flagyl per surgery recommendations. Urine culture was positive for Klebsiella. Patient denies any further concerns at this time. - Review of Systems Constitutional: No Fever, No Chills Eyes: No Symptoms Ears, Nose, & Throat: No Symptoms Respiratory: No Cough, No Short Of Breath Cardiac: No Chest Pain, No Edema, No Syncope Abdominal/Gastrointestinal: Abdominal Pain, No Nausea, No Vomiting, No Diarrhea Genitourinary Symptoms: No Dysuria Musculoskeletal: No Back Pain, No Neck Pain Skin: No Rash Neurological: No Dizziness, No Focal Weakness, No Sensory Changes Psychological: No Symptoms Endocrine: No Symptoms Hematologic/Lymphatic: No Symptoms Immunological/Allergic: No Symptoms Objective Exam General Appearance: no apparent distress, alert Neurologic Exam: alert, oriented x 3, cooperative, normal mood/affect, nml cerebellar function, sensation nml, No motor deficits Skin Exam: normal color, warm, dry Wound Assessment: Skin/Wound Assessment Wound/Incision Assessment Start: 04/17/25 20:59 Text: Status: Active Freq: Q4H Protocol: Document 04/20/25 04:00 KD (Rec: 04/20/25 05:21 KD [id number]) Wound/Incision Assessment Medial Abdomen Wound Assessment Shift Assessment Wound Type Incision Wound Stage Non Pressure Wound Dressing Status Drainage circled Drainage Amount Moderate Drainage Description Sanguineous Drainage Odor None/Absent Primary Dressing Border Gauze Comment dressing not removed at this time to assess wound, drainage circled Right Lower Abdomen Drain Type KATE drain Drainage Description Sanguineous Odor None/Absent Comment drainage circled Wound Photo Photo Taken No Eye Exam: PERRL, EOMI, eyes nml inspection Ears, Nose, Throat Exam: normal ENT inspection, pharynx normal, moist mucous membranes Neck Exam: normal inspection, non-tender, supple, full range of motion Respiratory Exam: normal breath sounds, lungs clear, No respiratory distress Cardiovascular Exam: regular rate/rhythm, normal heart sounds Gastrointestinal/Abdomen Exam: soft, tenderness (with palpation- generalized), No mass Extremity Exam: normal inspection, normal range of motion Back Exam: normal inspection, normal range of motion, No CVA tenderness, No vertebral tenderness Pelvic Exam: deferred Rectal Exam: deferred Objective Data Vital Signs: Vital Signs - 24 hr Temp Pulse Resp BP Pulse Ox 04/20/25 12:00 77 17 144/94 95 04/20/25 11:29 85 16 117/73 91 L 04/20/25 11:28 80 14 94 L 04/20/25 11:20 82 22 93 L 04/20/25 11:10 71 19 93 L 04/20/25 11:02 77 18 93 L 04/20/25 10:00 77 19 115/69 93 L 04/20/25 09:00 72 13 121/78 99 04/20/25 08:00 86 21 98/58 95 04/20/25 07:00 91 H 19 119/69 93 L 04/20/25 06:45 85 16 97 04/20/25 06:03 79 14 101/60 97 04/20/25 05:00 84 16 139/88 90 L 04/20/25 04:00 99.1 F 81 16 129/81 93 L 04/20/25 03:00 83 17 130/75 94 L 04/20/25 02:00 79 135/84 98 04/20/25 01:00 87 15 121/80 98 04/20/25 00:01 77 04/20/25 00:00 98.5 F 77 14 119/79 98 04/19/25 23:00 80 11 L 118/74 93 L 04/19/25 22:03 95 H 23 88 L 04/19/25 21:01 98 H 24 103/64 89 L 04/19/25 20:00 98.9 F 83 18 114/75 96 04/19/25 19:03 82 14 94 L 04/19/25 18:45 79 14 95 04/19/25 18:01 83 15 121/71 93 L 04/19/25 17:00 85 14 109/76 93 L 04/19/25 16:00 99.2 F 80 17 129/85 93 L 04/19/25 15:00 82 15 122/77 98 04/19/25 14:00 81 15 133/80 99 04/19/25 13:50 81 13 99 04/19/25 13:30 98.9 F 82 17 96 04/19/25 13:20 91 H 17 97 04/19/25 13:10 88 16 95 04/19/25 13:02 96 H 26 H Pain Assessment - Last Documented Pain Intensity 6 Pain Scale Used 0-10 Pain Scale Intake and Output: Intake & Output 04/18/25 04/19/25 04/20/25 04/21/25 11:59 11:59 11:59 11:59 Intake Total 1228 2170 3670 Output Total 1423 9405 235 Balance -197 -275 3435 Weight 64.3 kg 64.9 kg 71.3 kg Lab Results: Lab Results-Last 24 Hours 04/19/25 04/19/25 04/19/25 Range/Units 16:43 17:35 20:00 WBC (3.98-10.04) x10^3/uL RBC (3.93-5.22) x10^6/uL Hgb (11.2-15.7) g/dL Hct (34.1-44.9) % MCV (79.4-94.8) fL MCH (25.6-32.2) pg MCHC (32.2-35.5) g/dL RDW (11.7-14.4) % Plt Count (182-369) x10^3/uL MPV (9.4-12.3) fL Gran % (34.0-71.1) % Immature Gran % (Auto) (0.001-0.429) % Nucleat RBC Rel Count (0.00-0.2) % Eos # (Auto) (0.04-0.36) x10^3/uL Immature Gran # (Auto) (0.001-0.031) x10^3u/L Absolute Lymphs (auto) (1.18-3.74) x10^3/uL Absolute Monos (auto) (0.24-0.86) x10^3/uL Absolute Nucleated RBC (0.00-0.012) x10^3u/L Lymphocytes % (19.3-51.7) % Monocytes % (4.7-12.5) % Eosinophils % (0.7-5.8) % Basophils % (0.1-1.2) % Absolute Granulocytes (1.56-6.13) x10^3/uL Basophils # (0.01-0.08) x10^3/uL Sodium (135-145) mmol/L Potassium 3.4 L (3.5-5.1) mmol/L Chloride (98-107) mmol/L Carbon Dioxide (22-30) mmol/L Anion Gap (5-15) MEQ/L BUN (7-17) mg/dL Creatinine (0.52-1.04) mg/dL Estimated GFR ML/MIN Glucose (74-106) mg/dL POC Glucometer 103 106 (74 to 106) mg/dL Calcium (8.4-10.2) mg/dL Magnesium (1.6-2.3) mg/dL Total Bilirubin (0.2-1.3) mg/dL AST (14-36) U/L ALT (0-35) U/L Alkaline Phosphatase (38-126) U/L Serum Total Protein (6.3-8.2) g/dL Albumin (3.5-5.0) g/dL 04/19/25 04/20/25 04/20/25 Range/Units 23:31 04:46 04:47 WBC 9.2 (3.98-10.04) x10^3/uL RBC 3.23 L (3.93-5.22) x10^6/uL Hgb 9.9 L (11.2-15.7) g/dL Hct 31.9 L (34.1-44.9) % MCV 98.8 H (79.4-94.8) fL MCH 30.7 (25.6-32.2) pg MCHC 31.0 L (32.2-35.5) g/dL RDW 13.0 (11.7-14.4) % Plt Count 168 L (182-369) x10^3/uL MPV 9.8 (9.4-12.3) fL Gran % 75.3 H (34.0-71.1) % Immature Gran % (Auto) 0.3 (0.001-0.429) % Nucleat RBC Rel Count 0.0 (0.00-0.2) % Eos # (Auto) 0.11 (0.04-0.36) x10^3/uL Immature Gran # (Auto) 0.03 (0.001-0.031) x10^3u/L Absolute Lymphs (auto) 1.21 (1.18-3.74) x10^3/uL Absolute Monos (auto) 0.88 H (0.24-0.86) x10^3/uL Absolute Nucleated RBC 0.00 (0.00-0.012) x10^3u/L Lymphocytes % 13.2 L (19.3-51.7) % Monocytes % 9.6 (4.7-12.5) % Eosinophils % 1.2 (0.7-5.8) % Basophils % 0.4 (0.1-1.2) % Absolute Granulocytes 6.88 H (1.56-6.13) x10^3/uL Basophils # 0.04 (0.01-0.08) x10^3/uL Sodium (135-145) mmol/L Potassium (3.5-5.1) mmol/L Chloride (98-107) mmol/L Carbon Dioxide (22-30) mmol/L Anion Gap (5-15) MEQ/L BUN (7-17) mg/dL Creatinine (0.52-1.04) mg/dL Estimated GFR ML/MIN Glucose (74-106) mg/dL POC Glucometer 103 98 (74 to 106) mg/dL Calcium (8.4-10.2) mg/dL Magnesium (1.6-2.3) mg/dL Total Bilirubin (0.2-1.3) mg/dL AST (14-36) U/L ALT (0-35) U/L Alkaline Phosphatase (38-126) U/L Serum Total Protein (6.3-8.2) g/dL Albumin (3.5-5.0) g/dL 04/20/25 04/20/25 04/20/25 Range/Units 04:47 04:47 07:15 WBC (3.98-10.04) x10^3/uL RBC (3.93-5.22) x10^6/uL Hgb (11.2-15.7) g/dL Hct (34.1-44.9) % MCV (79.4-94.8) fL MCH (25.6-32.2) pg MCHC (32.2-35.5) g/dL RDW (11.7-14.4) % Plt Count (182-369) x10^3/uL MPV (9.4-12.3) fL Gran % (34.0-71.1) % Immature Gran % (Auto) (0.001-0.429) % Nucleat RBC Rel Count (0.00-0.2) % Eos # (Auto) (0.04-0.36) x10^3/uL Immature Gran # (Auto) (0.001-0.031) x10^3u/L Absolute Lymphs (auto) (1.18-3.74) x10^3/uL Absolute Monos (auto) (0.24-0.86) x10^3/uL Absolute Nucleated RBC (0.00-0.012) x10^3u/L Lymphocytes % (19.3-51.7) % Monocytes % (4.7-12.5) % Eosinophils % (0.7-5.8) % Basophils % (0.1-1.2) % Absolute Granulocytes (1.56-6.13) x10^3/uL Basophils # (0.01-0.08) x10^3/uL Sodium 136 (135-145) mmol/L Potassium 3.1 L (3.5-5.1) mmol/L Chloride 97 L (98-107) mmol/L Carbon Dioxide 36 H (22-30) mmol/L Anion Gap 5.8 (5-15) MEQ/L BUN 5 L (7-17) mg/dL Creatinine 0.38 L (0.52-1.04) mg/dL Estimated GFR 112.5 ML/MIN Glucose 104 (74-106) mg/dL POC Glucometer 102 (74 to 106) mg/dL Calcium 8.6 (8.4-10.2) mg/dL Magnesium 1.6 (1.6-2.3) mg/dL Total Bilirubin 0.20 (0.2-1.3) mg/dL AST 16 (14-36) U/L ALT 7 (0-35) U/L Alkaline Phosphatase 59 (38-126) U/L Serum Total Protein 5.6 L (6.3-8.2) g/dL Albumin 3.0 L (3.5-5.0) g/dL 04/20/25 Range/Units 11:32 WBC (3.98-10.04) x10^3/uL RBC (3.93-5.22) x10^6/uL Hgb (11.2-15.7) g/dL Hct (34.1-44.9) % MCV (79.4-94.8) fL MCH (25.6-32.2) pg MCHC (32.2-35.5) g/dL RDW (11.7-14.4) % Plt Count (182-369) x10^3/uL MPV (9.4-12.3) fL Gran % (34.0-71.1) % Immature Gran % (Auto) (0.001-0.429) % Nucleat RBC Rel Count (0.00-0.2) % Eos # (Auto) (0.04-0.36) x10^3/uL Immature Gran # (Auto) (0.001-0.031) x10^3u/L Absolute Lymphs (auto) (1.18-3.74) x10^3/uL Absolute Monos (auto) (0.24-0.86) x10^3/uL Absolute Nucleated RBC (0.00-0.012) x10^3u/L Lymphocytes % (19.3-51.7) % Monocytes % (4.7-12.5) % Eosinophils % (0.7-5.8) % Basophils % (0.1-1.2) % Absolute Granulocytes (1.56-6.13) x10^3/uL Basophils # (0.01-0.08) x10^3/uL Sodium (135-145) mmol/L Potassium (3.5-5.1) mmol/L Chloride (98-107) mmol/L Carbon Dioxide (22-30) mmol/L Anion Gap (5-15) MEQ/L BUN (7-17) mg/dL Creatinine (0.52-1.04) mg/dL Estimated GFR ML/MIN Glucose (74-106) mg/dL POC Glucometer 120 H (74 to 106) mg/dL Calcium (8.4-10.2) mg/dL Magnesium (1.6-2.3) mg/dL Total Bilirubin (0.2-1.3) mg/dL AST (14-36) U/L ALT (0-35) U/L Alkaline Phosphatase (38-126) U/L Serum Total Protein (6.3-8.2) g/dL Albumin (3.5-5.0) g/dL Medications: Medications Generic Name Dose Route Start Last Admin Trade Name Freq PRN Reason Stop Dose Admin Acetaminophen 650 mg 04/18/25 07:56 04/19/25 04:09 Acetaminophen 650 Mg Supp.Rect RC 05/18/25 07:55 650 mg Q4H PRN PRN Administration TEMP> 100, PAIN, HEADACHE Acetaminophen 650 mg 04/20/25 07:48 Acetaminophen 325 Mg Tablet PO 05/18/25 07:48 Q4H PRN PRN temp > 100 Albuterol Sulfate 2 puff 04/17/25 17:05 Albuterol Common Canister Inhaler IH 05/17/25 17:04 Q6HPRN PRN SHORTNESS OF BREATH/WHEEZING Albuterol Sulfate 2.5 mg 04/17/25 17:05 04/19/25 18:45 Albuterol Sulfate 2.5 Mg/3 Ml Neb IH 05/17/25 17:04 2.5 mg Q4HPRN PRN Administration SHORTNESS OF BREATH/WHEEZING Albuterol/Ipratropium 3 ml 04/17/25 16:33 04/20/25 06:42 Ipratropium/Albuterol Sulfate 3 Ml Ampul.Neb IH 05/17/25 18:59 3 ml Q6HRT PRN Administration SHORTNESS OF BREATH/WHEEZING Budesonide 0.5 mg 04/17/25 22:00 04/20/25 06:42 Budesonide 0.5 Mg/2 Ml Ampul.Neb. IH 05/17/25 21:59 0.5 mg BID THANIA Administration Buspirone HCl 15 mg 04/20/25 10:00 04/20/25 11:18 Buspirone Hcl 5 Mg Tablet PO 05/18/25 09:59 15 mg TID THANIA Administration Cholecalciferol 2,000 unit 04/20/25 10:00 04/20/25 11:17 Cholecalciferol (Vitamin D3) 1000 Unit Tablet PO 05/18/25 09:59 2,000 unit DAILY THANIA Administration Enoxaparin Sodium 40 mg 04/19/25 10:00 04/20/25 11:17 Enoxaparin Sodium 40 Mg/0.4 Ml Syringe SQ 05/19/25 09:59 40 mg DAILY THANIA Administration Fluoxetine HCl 60 mg 04/20/25 10:00 04/20/25 11:17 Fluoxetine Hcl 20 Mg Cap PO 05/18/25 09:59 60 mg DAILY THANIA Administration Fluticasone Propionate 0 gm 04/18/25 10:00 04/20/25 11:18 Fluticasone Propionate 16 Gm Bottle Nasal [place] NS 05/18/25 09:59 16 gm DAILY THANIA Administration Guaifenesin 10 ml 04/20/25 07:48 Guaifenesin 100 Mg/5 Ml 118 Ml Bottle PO 05/18/25 08:01 Q4H PRN PRN Metronidazole 500 mg in 100 mls @ 200 mls/hr 04/17/25 22:00 04/20/25 05:06 Flagyl 500 Mg Ivpb IV 05/17/25 21:59 200 mls/hr Q6HT THANIA Administration Ceftriaxone Sodium 1 gm in 100 mls @ 200 mls/hr 04/18/25 22:00 04/19/25 22:37 Rocephin 1 Gm / 100 Ml Nacl IV 05/18/25 21:59 200 mls/hr Q24H22 THANIA Administration Dextrose/Lactated Ringer's 1,000 mls @ 100 mls/hr 04/18/25 16:30 04/20/25 03:24 Dextrose 5%-Lr Iv Solution 1000 Ml IV 05/18/25 16:29 100 mls/hr .Q10H THANIA Administration Loratadine 10 mg 04/20/25 10:00 04/20/25 11:18 Loratadine 10 Mg Tablet PO 05/18/25 09:59 10 mg DAILY THANIA Administration Miscellaneous Information 1 each 04/18/25 07:30 Medication Intervention 1 Each Each 05/18/25 07:29 .RN TO CHECK THANIA Miscellaneous Information 1 each 04/18/25 10:00 Medication Intervention 1 Each Each 05/18/25 09:59 .RN TO CHECK WITH PT THANIA Montelukast Sodium 10 mg 04/20/25 10:00 04/20/25 11:18 Montelukast Sodium 10 Mg Tablet PO 05/18/25 09:59 10 mg DAILY THANIA Administration Morphine Sulfate 5 mg 04/17/25 21:42 04/20/25 12:28 Morphine Sulfate 10 Mg/Ml Injection IV 04/22/25 21:41 5 mg Q4H PRN PRN Administration PAIN Nicotine 14 mg 04/18/25 15:00 04/20/25 11:15 Nicotine 14 Mg/Patch Patch TOP 05/18/25 14:59 14 mg Q24H10 THANIA Administration Ondansetron HCl 4 mg 04/17/25 16:33 04/20/25 12:16 Ondansetron Hcl 4 Mg/2 Ml Vial IV 05/17/25 16:32 4 mg Q6H PRN PRN Administration NAUSEA/VOMITING Pantoprazole Sodium 40 mg 04/18/25 22:00 04/19/25 22:38 Pantoprazole 40 Mg Vial IV 05/18/25 21:59 40 mg Q24H22 THANIA Administration Roflumilast 500 mcg 04/20/25 10:00 04/20/25 11:19 Roflumilast 500 Mcg Tablet PO 05/18/25 09:59 500 mcg DAILY THANIA Administration Simvastatin 20 mg 04/20/25 22:00 Simvastatin 20 Mg Tablet PO 05/18/25 21:59 QPM THANIA Tiotropium [place] 1 ea 04/18/25 17:00 04/20/25 05:27 Tiotropium [place] 18 Mcg/Cap Inhaler IH 05/18/25 16:59 Not Given DINNER THANIA Discontinued Medications Generic Name Dose Route Start Last Admin Trade Name Freq PRN Reason Stop Dose Admin Acetaminophen 650 mg 04/18/25 07:49 Acetaminophen 325 Mg Tablet PO 05/18/25 07:48 Q4H PRN PRN temp > 100 Acetaminophen 650 mg 04/18/25 07:57 04/20/25 00:23 Acetaminophen 325 Mg Tablet NG 05/18/25 07:48 650 mg Q4H PRN PRN Administration temp > 100 Bupivacaine HCl Confirm 04/17/25 17:11 Bupivacaine Hcl 2.5 Mg/Ml 10 Ml Administered 04/17/25 17:12 Dose 20 ml .ROUTE .STK-MED ONE Bupivacaine HCl/Epinephrine Bitart Confirm 04/17/25 18:57 Bupivacaine Hcl/Epinephrine 10 Ml Vial Administered 04/17/25 18:58 Dose 40 ml .ROUTE .STK-MED ONE Buspirone HCl 15 mg 04/18/25 10:00 04/19/25 22:38 Buspirone Hcl 5 Mg Tablet NG 05/18/25 09:59 15 mg TID THANIA Administration Cholecalciferol 2,000 unit 04/18/25 10:00 04/19/25 09:34 Cholecalciferol (Vitamin D3) 1000 Unit Tablet NG 05/18/25 09:59 2,000 unit DAILY THANIA Administration Fentanyl Citrate Confirm 04/17/25 16:58 Fentanyl Citrate 100 Mcg/2 Ml* Vial Administered 04/17/25 16:59 Dose 100 mcg .ROUTE .STK-MED ONE Fluoxetine HCl 60 mg 04/18/25 10:00 04/19/25 09:34 Fluoxetine Hcl 20 Mg Cap NG 05/18/25 09:59 60 mg DAILY THANIA Administration Guaifenesin 1,200 mg 04/18/25 10:00 Guaifenesin 600 Mg Tablet Er PO 05/18/25 09:59 BID THANIA Guaifenesin 10 ml 04/18/25 08:02 Guaifenesin 100 Mg/5 Ml 118 Ml Bottle NG 05/18/25 08:01 Q4H PRN PRN Sodium Chloride 1,000 mls @ 999 mls/hr 04/17/25 12:25 04/17/25 13:41 Sodium Chloride 0.9% 1000 Ml IV 04/17/25 13:25 Infused .Q1H1M STA Infusion Sodium Chloride Confirm 04/17/25 12:33 Sodium Chloride 0.9% 1000 Ml Administered 04/17/25 12:34 Dose 1,000 mls @ ud .ROUTE .STK-MED ONE Ceftriaxone Sodium 1 gm in 100 mls @ 200 mls/hr 04/17/25 14:48 04/17/25 16:07 Rocephin 1 Gm / 100 Ml Nacl IV 04/17/25 15:17 200 mls/hr STAT ONE Administration Metronidazole 500 mg in 100 mls @ 200 mls/hr 04/17/25 14:48 04/17/25 16:28 Flagyl 500 Mg Ivpb IV 04/17/25 15:17 200 mls/hr STAT STA Administration Sodium Chloride 1,000 mls @ 100 mls/hr 04/17/25 15:00 04/18/25 03:21 Sodium Chloride 0.9% 1000 Ml IV 05/17/25 14:59 Not Given .Q10H THANIA Ceftriaxone Sodium Confirm 04/17/25 15:10 Rocephin 1 Gm / 100 Ml Nacl Administered 04/17/25 15:11 Dose 1 gm in 100 mls @ ud IV .STK-MED ONE Ceftriaxone Sodium 1 gm in 100 mls @ 200 mls/hr 04/18/25 10:00 Rocephin 1 Gm / 100 Ml Nacl IV 05/18/25 09:59 Q24H10 THANIA Metronidazole 500 mg in 100 mls @ 200 mls/hr 04/17/25 18:00 04/17/25 18:16 Flagyl 500 Mg Ivpb IV 05/17/25 17:59 Not Given Q6HT THANIA Lactated Ringer's Confirm 04/17/25 17:11 Lactated Ringers Administered 04/17/25 17:12 Dose 1,000 mls @ ud IV .STK-MED ONE Ceftriaxone Sodium 1 gm in 100 mls @ 200 mls/hr 04/18/25 10:00 Rocephin 1 Gm / 100 Ml Nacl IV 05/18/25 09:59 Q24H10 THANIA Lactated Ringer's 1,000 mls @ 100 mls/hr 04/17/25 22:00 04/18/25 14:33 Lactated Ringers IV 05/17/25 21:59 100 mls/hr .Q10H THANIA Administration Ceftriaxone Sodium 1 gm in 100 mls @ 200 mls/hr 04/17/25 22:00 04/17/25 22:03 Rocephin 1 Gm / 100 Ml Nacl IV 05/17/25 22:05 200 mls/hr Q24H10 THANIA Administration Potassium Chloride 20 meq in 100 mls @ 50 mls/hr 04/19/25 05:31 04/19/25 05:56 Potassium Chloride 20 Meq In Water 100ml IV 04/19/25 07:30 50 mls/hr STAT ONE Administration Potassium Chloride 100 mls @ 50 mls/hr 04/19/25 12:30 04/19/25 19:05 Potassium Chloride 20 Meq In Water 100ml IV 04/19/25 20:29 Not Given Q2H THANIA Loratadine 10 mg 04/18/25 10:00 04/19/25 09:34 Loratadine 10 Mg Tablet NG 05/18/25 09:59 10 mg DAILY THANIA Administration Midazolam HCl Confirm 04/17/25 16:58 Midazolam Hcl 2 Mg/2 Ml Vial Administered 04/17/25 16:59 Dose 2 mg .ROUTE .STK-MED ONE Miscellaneous Information 1 each 04/18/25 07:30 Medication Intervention 1 Each Each 05/18/25 07:29 .RN TO CHECK THANIA Montelukast Sodium 10 mg 04/18/25 10:00 04/19/25 09:34 Montelukast Sodium 10 Mg Tablet NG 05/18/25 09:59 10 mg DAILY THANIA Administration Morphine Sulfate 2 mg 04/17/25 12:25 04/17/25 12:38 Morphine Sulfate 2 Mg/Ml Inj IV 04/17/25 12:26 2 mg STAT ONE Administration Morphine Sulfate Confirm 04/17/25 12:32 Morphine Sulfate 2 Mg/Ml Inj Administered 04/17/25 12:33 Dose 2 mg .ROUTE .STK-MED ONE Morphine Sulfate 4 mg 04/17/25 14:48 04/17/25 14:53 Morphine Sulfate 4 Mg/Ml Injection IV 04/17/25 14:49 4 mg STAT ONE Administration Morphine Sulfate Confirm 04/17/25 14:52 Morphine Sulfate 4 Mg/Ml Injection Administered 04/17/25 14:53 Dose 4 mg .ROUTE .STK-MED ONE Morphine Sulfate 2 mg 04/17/25 16:35 04/17/25 22:00 Morphine Sulfate 2 Mg/Ml Inj IV 04/22/25 16:34 2 mg Q4H PRN PRN Administration SEVERE PAIN Non-Formulary Medication 2 puffs 04/17/25 22:00 04/18/25 19:13 Budesonide/Formoterol Fumarate [Budesonide-Formoterol 160-4.5] IH 05/17/25 21:59 Not Given BID THANIA Ondansetron HCl 4 mg 04/17/25 12:25 04/17/25 12:38 Ondansetron Hcl 4 Mg/2 Ml Vial IV 04/17/25 12:26 4 mg STAT ONE Administration Ondansetron HCl Confirm 04/17/25 12:32 Ondansetron Hcl 4 Mg/2 Ml Vial Administered 04/17/25 12:33 Dose 4 mg .ROUTE .STK-MED ONE Pantoprazole Sodium 40 mg 04/17/25 16:45 04/17/25 22:02 Pantoprazole 40 Mg Vial IV 05/17/25 16:44 40 mg Q24H THANIA Administration Phenylephrine HCl Confirm 04/17/25 18:13 Phenylephrine 10 Mg/Ml Vial Administered 04/17/25 18:14 Dose 10 mg .ROUTE .STK-MED ONE Potassium Bicarbonate 25 meq 04/20/25 08:00 04/20/25 11:15 Potassium Bicarbonate 25 Meq Tab PO 04/20/25 12:01 25 meq Q2H THANIA Administration Potassium Chloride 40 meq 04/20/25 06:45 04/20/25 07:05 Potassium Chloride Tab 10 Meq Tab PO 04/20/25 06:46 40 meq STAT ONE Administration Propofol Confirm 04/17/25 16:58 Propofol 200 Mg/20 Ml Vial Administered 04/17/25 16:59 Dose 200 mg IV .STK-MED ONE Rocuronium [place] Confirm 04/17/25 16:58 Rocuronium [place] 50 Mg/5 Ml Vial Administered 04/17/25 16:59 Dose 50 mg IV .STK-MED ONE Roflumilast 500 mcg 04/18/25 10:00 04/19/25 09:35 Roflumilast 500 Mcg Tablet NG 05/18/25 09:59 500 mcg DAILY THANIA Administration Simvastatin 20 mg 04/18/25 22:00 04/19/25 22:37 Simvastatin 20 Mg Tablet NG 05/18/25 21:59 20 mg QPM THANIA Administration Succinylcholine Chloride Confirm 04/17/25 16:58 Succinylcholine Chloride 200mg/10 Ml Vial Administered 04/17/25 16:59 Dose 100 mg .ROUTE .STK-MED ONE Sugammadex Sodium Confirm 04/17/25 19:15 Sugammadex Sodium 200 Mg/2 Ml Vial Administered 04/17/25 19:16 Dose 200 mg IV .STK-MED ONE Theophylline 300 mg 04/18/25 10:00 Theophylline Anhydrous 400 Mg Tab.Er.24hr Tablet NG 05/18/25 09:59 BID THANIA Multi-Disciplinary Progress Notes: Multi-Disciplinary Progress Notes 04/20/25 10:41 Case Management Note by Zoya Garsia S/W PATIENT- SHE CONTINUES TO DENY AY NEW NEEDS AT TIME OF DC. SHE REPORTS SHE IS AMBULATING TO THE RESTROOM OKAY. PATIENT TO WALK WITH NURSING STAFF TODAY, CAN GET PT EVAL IF NEEDED. PATIENT DENIES ANY NEW NEEDS AT TIME OF DC. SHE DECLINES HHC. SHE PLANS TO RETURN HOME WITH HER TO HELP HER AT TIME OF DC Initialized on 04/20/25 10:41 - END OF NOTE Assessment/Plan (1) Incarcerated hernia Current Visit: Yes Status: Acute Code(s): K46.0 - UNSP ABDOMINAL HERNIA WITH OBSTRUCTION, WITHOUT GANGRENE (2) UTI (urinary tract infection) Current Visit: Yes Status: Acute Code(s): N39.0 - URINARY TRACT INFECTION, SITE NOT SPECIFIED (3) Leukocytosis Current Visit: Yes Status: Acute Code(s): D72.829 - ELEVATED WHITE BLOOD CELL COUNT, UNSPECIFIED (4) Abdominal pain Current Visit: Yes Status: Acute Code(s): R10.9 - UNSPECIFIED ABDOMINAL PAIN (5) Nausea vomiting and diarrhea Current Visit: Yes Status: Acute Code(s): R11.2 - NAUSEA WITH VOMITING, UNSPECIFIED; R19.7 - DIARRHEA, UNSPECIFIED (6) Hypokalemia Current Visit: Yes Status: Acute Code(s): E87.6 - HYPOKALEMIA (7) COPD (chronic obstructive pulmonary disease) Current Visit: Yes Status: Chronic (8) Depression Current Visit: Yes Status: Chronic Code(s): F32.A - DEPRESSION, UNSPECIFIED (9) History of lung cancer Current Visit: Yes Status: Chronic Code(s): Z85.118 - PERSONAL HISTORY OF MALIGNANT NEOPLASM OF BRONCHUS AND LUNG (10) Smoker Current Visit: Yes Status: Chronic Code(s): F17.200 - NICOTINE DEPENDENCE, UNSPECIFIED, UNCOMPLICATED (11) Hyperlipidemia Current Visit: Yes Status: Chronic Assessment & Plan: (1) Incarcerated hernia Current Visit: Yes Status: Acute Assessment & Plan: - Pt pulled out NG- and refusing to be replaced. - GS to be made aware by nurse - CHARISMA Jo today. - NPO - No BM nor passing gas as of this AM - POD #2 from surgery - Continue ceftriaxone/Flagyl per GS recs - Surgery following - CBC, CMP reviewed - Narcotic pain control IV - BX x2 negative - KATE drain x1 in place - Abd. binder in place 04/20 - POD #3 from surgery - Surgery aware NG is out and ok with this. - Awaiting surgery recs - Passing gas no BM - Hgb drop from 11.2 to 9.9 today- denies vomiting or any BM- nurse to make surgery aware. Code(s): K46.0 - UNSP ABDOMINAL HERNIA WITH OBSTRUCTION, WITHOUT GANGRENE (2) UTI (urinary tract infection) Current Visit: Yes Status: Acute Assessment & Plan: - UC + Klebsiella Pneumoniae - repeat UC negative - Continue IV antibiotics Code(s): N39.0 - URINARY TRACT INFECTION, SITE NOT SPECIFIED (3) Leukocytosis Current Visit: Yes Status: Acute Assessment & Plan: - WBC 12.8- improving- trend 04/20 - resolved Code(s): D72.829 - ELEVATED WHITE BLOOD CELL COUNT, UNSPECIFIED (4) Abdominal pain Current Visit: Yes Status: Acute Assessment & Plan: - 2:2 hernia repain and bowel resection - CT Abd/Pelvis: 1. Picture suggestive of right-sided incarcerated inguinal hernia with omentum and small bowel content and subsequent small bowel obstruction. However, the appearance of two collapsed efferent and afferent bowel loops at the entry point of the hernia could result in a form of closed-loop obstruction, together with luminal dilatation and fatty stranding within the hernia sac ( however, there is normal enhancement of the bowel wall), which can suggest impending strangulation. Advise urgent surgical consultation. 2. A tiny fat-containing non-complicated periumbilical hernia. 3. Minimal circumferential uniform mural thickening of the pylorus is likely of inflammatory origin. Correlate clinically and further UGE if clinically warranted. 4. Multiple non-complicated colonic diverticulosis. 5. A small sliding hiatus hernia. 6. Fatty liver. 7. Bilateral emphysema with bilateral lower lobar more along right basal atelectatic changes, sequel of prior inflammatory process. Code(s): R10.9 - UNSPECIFIED ABDOMINAL PAIN (5) Nausea vomiting and diarrhea Current Visit: Yes Status: Acute Assessment & Plan: Assessment & Plan: -2/ to incarcerated hernia -Antiemetics as needed. -NG tube decompression -Fluid and electrolyte monitoring; replace as needed 04/20 - NG removed by pt on 04/19 - N/VD resolved Code(s): R11.2 - NAUSEA WITH VOMITING, UNSPECIFIED; R19.7 - DIARRHEA, UNSPECIFIED (6) Hypokalemia Current Visit: Yes Status: Acute Assessment & Plan: - K+ 3.1, repeat after replacement- 3.3 - Repeat IV replacement ordered- trend 2 hours after IV dose x1 given - Tele- ICU- critical care - Check Mg+ in AM - 2:2 N/V/D 04/20 - K+ 3.1- replaced- trend Code(s): E87.6 - HYPOKALEMIA (7) COPD (chronic obstructive pulmonary disease) Current Visit: Yes Status: Chronic Assessment & Plan: - Maintain at baseline 4L O2- 96% - Continue home meds - Incentive spirometry as tolerated. - Avoid sedatives that worsen respiratory drive. - Resume inhalers/nebulizers as appropriate. - Co2 33- trend- chronic 04/20 - Co2 36- trend - 4LNC at 93% (8) Depression Current Visit: Yes Status: Chronic Assessment & Plan: -Continue home meds s/p surgery Code(s): F32.A - DEPRESSION, UNSPECIFIED (9) History of lung cancer Current Visit: Yes Status: Chronic Assessment & Plan: -s/p radiation 2023 Code(s): Z85.118 - PERSONAL HISTORY OF MALIGNANT NEOPLASM OF BRONCHUS AND LUNG (10) Smoker Current Visit: Yes Status: Chronic Assessment & Plan: - Advised cessation- education provided - Nicotine patch Code(s): F17.200 - NICOTINE DEPENDENCE, UNSPECIFIED, UNCOMPLICATED (11) Hyperlipidemia Current Visit: Yes Status: Chronic Assessment & Plan: - Continue statin VTE: SCD for now PPI: Protonix IV Dispo: pending surgery eval Code status: Full Next of Kin: Martin Sarkar [phone] Plan of care/critical care time spent > 50 mins Code(s): E78.5 - HYPERLIPIDEMIA, UNSPECIFIED
[2025-04-20] MEDS: PULMICORT 0.5 MG/2 ML RESPULES IH SCH (18:37)
[2025-04-20] MEDS: ZOCOR 20MG PO SCH (21:09)
[2025-04-21] MEDS: TYLENOL 325 MG PO PRN (01:48)
[2025-04-21] MEDS: LOPRESSOR INJECTION IV PRN (03:06)
--- NOTE | 2025-04-21 03:10 | TM.IN ---
Tele-Medicine Incident Note - Incident Note Tel-Medicine Incident Note: 04/21/25 0308 Patient was noted to demonstrate new onset asymptomatic atrial fibrillation with RVR on telemetry. Will administer metoprolol IVP for rate control. Will require cardiology consultation in the morning. Will continue to monitor on telemetry and obtain a 12 lead EKG now and in AM. Telemedicine Encounter - Telemedicine Encounter Telemedicine Encounter: "The entirety of this encounter was performed via Telemedicine" This visit was performed using real-time audio and video connection between my location and thepatients locationwith the assistance of a surrogateat the patients location. Written or verbal consent was obtained from the patient/guardian to perform this visit usingsynchrka[facility]. Any patient questions regarding the telemedicine interaction were answered.
[2025-04-21 04:17] LABS: BASOPHIL % 0.5 % (0.1-1.2); Basophil (Absolute #) 0.04 x10^3/uL (0.01-0.08); Eosinophil (Absolute #) 0.15 x10^3/uL (0.04-0.36); Hematocrit 31.3 % (34.1-44.9); Hemoglobin 10.0 g/dL (11.2-15.7); IMMATURE GRAN # 0.02 x10^3u/L (0.001-0.031); IMMATURE GRAN % 0.3 % (0.001-0.429); Lymphocyte (Absolute #) 1.35 x10^3/uL (1.18-3.74); Mean Corpuscular Hemoglobin 31.5 pg (25.6-32.2); Mean Corpuscular Hgb Concent. 31.9 g/dL (32.2-35.5); Monocyte (Absolute #) 0.87 x10^3/uL (0.24-0.86); NUCLEATED RBC # 0.00 x10^3u/L (0.00-0.012); NUCLEATED RBC % 0.0 % (0.00-0.2); Platelet Count 188 x10^3/uL (182-369); Red Blood Count 3.17 x10^6/uL (3.93-5.22); White Blood Count 7.9 x10^3/uL (3.98-10.04)
[2025-04-21] MEDS: Cardizem IV 50 MG/10 ML IV ONE (04:31)
[2025-04-21 04:32] LABS: Calcium 9.1 mg/dL (8.4-10.2); Carbon Dioxide 35.0 mmol/L (22-30); Creatinine 1 0.38 mg/dL (0.52-1.04); EST GLOMERULAR FILTRATION RATE 112.5 ML/MIN; Glucose 98.0 mg/dL (74-106); Potassium 3.6 mmol/L (3.5-5.1); SGOT/AST 17.0 U/L (14-36); SGPT/ALT 8.0 U/L (0-35); Total Protein 5.7 g/dL (6.3-8.2)
[2025-04-21] MEDS: Cordarone 150 MG/3 ML Injection*** 150 MG in D5w 100ML Mini Bag 100 ML 100 ML IV ONE (10:31)
[2025-04-21] MEDS: NEXTERONE 360 MG/200 ML BAG 360 MG/200 ML PLAST..BAG IV SCH (10:53)
--- NOTE | 2025-04-21 13:55 | PCM.NOTE ---
patient seen with dr Eduin Mendes today, no c/o wants to eat, jessie diety so, bowels moving, inc cdi sofy ss, abdomen soft, will adv to regualr diet, dc sofy drain today
--- NOTE | 2025-04-21 14:17 | PCM.NOTE ---
Date and Time: 04/21/25 1401 Subjective Assessment: 04/19/25 Met with patient bedside. She is POD#2 s/p hernia repair and bowel resection. Endorses she is doing well. Pain controlled with numerical pain rating at 5/10 at surgical incision site. MLI with surgical dressing, some shadow drainage. SOFY x 1 with moderate sanguineous drainage. Hypoactive BS. No flatulence or bowel movements. NG pulled out by pt and she is refusing for it to be replaced. Nurse has a call out to GS to discuss. Continue Ceftriaxone/Flagyl . K+ 3.1 and replaced. UC + klebsiella. BC x2 negative. WBC improved at 12.8. Continue D5NS at 100ml/hr as pt is NPO. Denies fever,cough, sob, cp, dizziness, N/V/D. 04/20/25 Patient sitting up in bed. She states she is feeling better today overall. She walked 120 feet today with staff, without any problems. She has not had any bowel movements yet, however she is passing gas. She states that she does have a little bit of stomach pain but it is not too bad. She pulled her NG out yesterday and refused to have it replaced and surgery is okay with this. She still has a SOFY drain x [address] She is requiring narcotic pain medicine still IV. Potassium was 3.1 today and replaced. Hemoglobin dropped to 9.9 from 11.2 yesterday. I asked nursing to tell surgery of this finding. White blood cell count is okay today at 9.2. Continue ceftriaxone and Flagyl per surgery recommendations. Urine culture was positive for Klebsiella. Patient denies any further concerns at this time. 04/21 Patient resting in bed. She states that she feels better today however she went into A-fib a flutter last night. She was given several p.o. meds that and IV meds for her heart rate and this did not control her heart rate well. Cardiology consulted this morning and patient was started on an amiodarone drip. Heart rate has improved since this drip was started. Patient is in the ICU currently for continuous telemetry monitoring. An EKG was done several times over the night and Echo ordered for this AM. Per general surgery note patient is to advance to regular diet and SOFY drain to be DC'd today. Patient has had several loose stools overnight as well as passing gas now. She denies any further concerns at this time. - Review of Systems Constitutional: No Fever, No Chills Eyes: No Symptoms Ears, Nose, & Throat: No Symptoms Respiratory: No Cough, No Short Of Breath Cardiac: No Chest Pain, No Edema, No Syncope Abdominal/Gastrointestinal: Diarrhea, No Abdominal Pain, No Nausea, No Vomiting Genitourinary Symptoms: No Dysuria Musculoskeletal: No Back Pain, No Neck Pain Skin: No Rash Neurological: No Dizziness, No Focal Weakness, No Sensory Changes Psychological: No Symptoms Endocrine: No Symptoms Hematologic/Lymphatic: No Symptoms Immunological/Allergic: No Symptoms Objective Exam General Appearance: no apparent distress, alert Neurologic Exam: alert, oriented x 3, cooperative, normal mood/affect, nml cerebellar function, sensation nml, No motor deficits Skin Exam: normal color, warm, dry Wound Assessment: Skin/Wound Assessment Wound/Incision Assessment Start: 04/17/25 20:59 Text: Status: Active Freq: Q4H Protocol: Document 04/21/25 12:00 [facility] (Rec: 04/21/25 12:58 [facility] [id number]) Wound/Incision Assessment Medial Abdomen Wound Assessment Shift Assessment Wound Type Incision Wound Stage Non Pressure Wound Dressing Status Dry & Intact Drainage Odor None/Absent General Appearance Well Approximated,[place] Intact,Draining Surrounding Tissue [place] Primary Dressing Border Gauze Right Lower Abdomen Drain Type SOFY drain Drainage Description Sanguineous Odor None/Absent Wound Photo Photo Taken No Eye Exam: PERRL, EOMI, eyes nml inspection Ears, Nose, Throat Exam: normal ENT inspection, pharynx normal, moist mucous membranes Neck Exam: normal inspection, non-tender, supple, full range of motion Respiratory Exam: normal breath sounds, lungs clear, No respiratory distress Cardiovascular Exam: irregular Gastrointestinal/Abdomen Exam: soft, tenderness, No mass Extremity Exam: normal inspection, normal range of motion Back Exam: normal inspection, normal range of motion, No CVA tenderness, No vertebral tenderness Pelvic Exam: deferred Rectal Exam: deferred Objective Data Vital Signs: Vital Signs - 24 hr Temp Pulse Resp BP BP Pulse Ox 04/21/25 13:00 96.9 F 121 H 23 99/70 93 L 04/21/25 12:30 132 H 16 116/72 94 L 04/21/25 12:01 108 H 15 109/77 93 L 04/21/25 12:00 98.4 F 121 H 18 109/77 91 L 04/21/25 11:30 120 H 23 107/75 92 L 04/21/25 11:00 109 H 15 95/69 93 L 04/21/25 10:45 108 H 18 87/69 93 L 04/21/25 07:10 52 L 18 94 L 04/21/25 07:06 98.1 F 147 H 18 96/71 94 L 04/21/25 04:00 97.1 F 127 H 18 114/78 91 L 04/21/25 00:00 86 18 95 04/20/25 20:22 98.1 F 88 20 123/76 93 L 04/20/25 18:41 75 16 95 04/20/25 16:22 98.3 F 81 18 124/73 92 L 04/20/25 15:59 95 04/20/25 15:00 133/81 Pain Assessment - Last Documented Pain Intensity 7 Pain Scale Used 0-10 Pain Scale Intake and Output: Intake & Output 04/19/25 04/20/25 04/21/25 04/22/25 11:59 11:59 11:59 11:59 Intake Total 2170 3670 1255 720 Output Total 2445 235 Balance -275 3435 1255 720 Weight 64.9 kg 71.3 kg 68.5 kg Lab Results: Lab Results-Last 24 Hours 04/20/25 04/20/25 04/21/25 Range/Units 14:00 16:11 01:09 WBC (3.98-10.04) x10^3/uL RBC (3.93-5.22) x10^6/uL Hgb (11.2-15.7) g/dL Hct (34.1-44.9) % MCV (79.4-94.8) fL MCH (25.6-32.2) pg MCHC (32.2-35.5) g/dL RDW (11.7-14.4) % Plt Count (182-369) x10^3/uL MPV (9.4-12.3) fL Gran % (34.0-71.1) % Immature Gran % (Auto) (0.001-0.429) % Nucleat RBC Rel Count (0.00-0.2) % Eos # (Auto) (0.04-0.36) x10^3/uL Immature Gran # (Auto) (0.001-0.031) x10^3u/L Absolute Lymphs (auto) (1.18-3.74) x10^3/uL Absolute Monos (auto) (0.24-0.86) x10^3/uL Absolute Nucleated RBC (0.00-0.012) x10^3u/L Lymphocytes % (19.3-51.7) % Monocytes % (4.7-12.5) % Eosinophils % (0.7-5.8) % Basophils % (0.1-1.2) % Absolute Granulocytes (1.56-6.13) x10^3/uL Basophils # (0.01-0.08) x10^3/uL Sodium (135-145) mmol/L Potassium 4.0 D (3.5-5.1) mmol/L Chloride (98-107) mmol/L Carbon Dioxide (22-30) mmol/L Anion Gap (5-15) MEQ/L BUN (7-17) mg/dL Creatinine (0.52-1.04) mg/dL Estimated GFR ML/MIN Glucose (74-106) mg/dL POC Glucometer 81 88 (74 to 106) mg/dL Calcium (8.4-10.2) mg/dL Magnesium (1.6-2.3) mg/dL Total Bilirubin (0.2-1.3) mg/dL AST (14-36) U/L ALT (0-35) U/L Alkaline Phosphatase (38-126) U/L Serum Total Protein (6.3-8.2) g/dL Albumin (3.5-5.0) g/dL 04/21/25 04/21/25 04/21/25 Range/Units 04:14 04:14 06:43 WBC 7.9 (3.98-10.04) x10^3/uL RBC 3.17 L (3.93-5.22) x10^6/uL Hgb 10.0 L (11.2-15.7) g/dL Hct 31.3 L (34.1-44.9) % MCV 98.7 H (79.4-94.8) fL MCH 31.5 (25.6-32.2) pg MCHC 31.9 L (32.2-35.5) g/dL RDW 12.9 (11.7-14.4) % Plt Count 188 (182-369) x10^3/uL MPV 9.5 (9.4-12.3) fL Gran % 69.3 (34.0-71.1) % Immature Gran % (Auto) 0.3 (0.001-0.429) % Nucleat RBC Rel Count 0.0 (0.00-0.2) % Eos # (Auto) 0.15 (0.04-0.36) x10^3/uL Immature Gran # (Auto) 0.02 (0.001-0.031) x10^3u/L Absolute Lymphs (auto) 1.35 (1.18-3.74) x10^3/uL Absolute Monos (auto) 0.87 H (0.24-0.86) x10^3/uL Absolute Nucleated RBC 0.00 (0.00-0.012) x10^3u/L Lymphocytes % 17.0 L (19.3-51.7) % Monocytes % 11.0 (4.7-12.5) % Eosinophils % 1.9 (0.7-5.8) % Basophils % 0.5 (0.1-1.2) % Absolute Granulocytes 5.51 (1.56-6.13) x10^3/uL Basophils # 0.04 (0.01-0.08) x10^3/uL Sodium 135 (135-145) mmol/L Potassium 3.6 (3.5-5.1) mmol/L Chloride 96 L (98-107) mmol/L Carbon Dioxide 35 H (22-30) mmol/L Anion Gap 7.4 (5-15) MEQ/L BUN 4 L (7-17) mg/dL Creatinine 0.38 L (0.52-1.04) mg/dL Estimated GFR 112.5 ML/MIN Glucose 98 (74-106) mg/dL POC Glucometer 96 (74 to 106) mg/dL Calcium 9.1 (8.4-10.2) mg/dL Magnesium 1.7 (1.6-2.3) mg/dL Total Bilirubin 0.30 (0.2-1.3) mg/dL AST 17 (14-36) U/L ALT 8 (0-35) U/L Alkaline Phosphatase 59 (38-126) U/L Serum Total Protein 5.7 L (6.3-8.2) g/dL Albumin 3.0 L (3.5-5.0) g/dL 04/21/25 Range/Units 11:48 WBC (3.98-10.04) x10^3/uL RBC (3.93-5.22) x10^6/uL Hgb (11.2-15.7) g/dL Hct (34.1-44.9) % MCV (79.4-94.8) fL MCH (25.6-32.2) pg MCHC (32.2-35.5) g/dL RDW (11.7-14.4) % Plt Count (182-369) x10^3/uL MPV (9.4-12.3) fL Gran % (34.0-71.1) % Immature Gran % (Auto) (0.001-0.429) % Nucleat RBC Rel Count (0.00-0.2) % Eos # (Auto) (0.04-0.36) x10^3/uL Immature Gran # (Auto) (0.001-0.031) x10^3u/L Absolute Lymphs (auto) (1.18-3.74) x10^3/uL Absolute Monos (auto) (0.24-0.86) x10^3/uL Absolute Nucleated RBC (0.00-0.012) x10^3u/L Lymphocytes % (19.3-51.7) % Monocytes % (4.7-12.5) % Eosinophils % (0.7-5.8) % Basophils % (0.1-1.2) % Absolute Granulocytes (1.56-6.13) x10^3/uL Basophils # (0.01-0.08) x10^3/uL Sodium (135-145) mmol/L Potassium (3.5-5.1) mmol/L Chloride (98-107) mmol/L Carbon Dioxide (22-30) mmol/L Anion Gap (5-15) MEQ/L BUN (7-17) mg/dL Creatinine (0.52-1.04) mg/dL Estimated GFR ML/MIN Glucose (74-106) mg/dL POC Glucometer 98 (74 to 106) mg/dL Calcium (8.4-10.2) mg/dL Magnesium (1.6-2.3) mg/dL Total Bilirubin (0.2-1.3) mg/dL AST (14-36) U/L ALT (0-35) U/L Alkaline Phosphatase (38-126) U/L Serum Total Protein (6.3-8.2) g/dL Albumin (3.5-5.0) g/dL Radiology Exams: Radiology Procedures Category Date Time Status ECHO W/2D AND DOPPLER [US] Routine Exams 04/21/25 09:53 Taken Medications: Medications Generic Name Dose Route Start Last Admin Trade Name Freq PRN Reason Stop Dose Admin Acetaminophen 650 mg 04/18/25 07:56 04/19/25 04:09 Acetaminophen 650 Mg Supp.Rect RC 05/18/25 07:55 650 mg Q4H PRN PRN Administration TEMP> 100, PAIN, HEADACHE Acetaminophen 650 mg 04/20/25 07:48 04/21/25 01:48 Acetaminophen 325 Mg Tablet PO 05/18/25 07:48 650 mg Q4H PRN PRN Administration temp > 100 Albuterol Sulfate 2 puff 04/17/25 17:05 Albuterol Common Canister Inhaler 05/17/25 17:04 Q6HPRN PRN SHORTNESS OF BREATH/WHEEZING Albuterol Sulfate 2.5 mg 04/17/25 17:05 04/21/25 07:07 Albuterol Sulfate 2.5 Mg/3 Ml Neb 05/17/25 17:04 2.5 mg Q4HPRN PRN Administration SHORTNESS OF BREATH/WHEEZING Budesonide 0.5 mg 04/20/25 19:00 04/21/25 07:08 Budesonide 0.5 Mg/2 Ml Ampul.Neb. 05/20/25 18:59 0.5 mg BIDRT THANIA Administration Buspirone HCl 15 mg 04/20/25 10:00 04/21/25 11:46 Buspirone Hcl 5 Mg Tablet PO 05/18/25 09:59 15 mg TID THANIA Administration Cholecalciferol 2,000 unit 04/20/25 10:00 04/21/25 11:46 Cholecalciferol (Vitamin D3) 1000 Unit Tablet PO 05/18/25 09:59 2,000 unit DAILY THANIA Administration Enoxaparin Sodium 40 mg 04/19/25 10:00 04/20/25 11:17 Enoxaparin Sodium 40 Mg/0.4 Ml Syringe SQ 05/19/25 09:59 40 mg DAILY THANIA Administration Fluoxetine HCl 60 mg 04/20/25 10:00 04/21/25 11:46 Fluoxetine Hcl 20 Mg Cap PO 05/18/25 09:59 60 mg DAILY THANIA Administration Fluticasone Propionate 0 gm 04/18/25 10:00 04/21/25 10:57 Fluticasone Propionate 16 Gm Bottle Nasal [place] NS 05/18/25 09:59 Not Given DAILY THANIA Guaifenesin 10 ml 04/20/25 07:48 Guaifenesin 100 Mg/5 Ml 118 Ml Bottle PO 05/18/25 08:01 Q4H PRN PRN Metronidazole 500 mg in 100 mls @ 200 mls/hr 04/17/25 22:00 04/21/25 11:58 Flagyl 500 Mg Ivpb IV 05/17/25 21:59 200 mls/hr Q6HT HTANIA Administration Ceftriaxone Sodium 1 gm in 100 mls @ 200 mls/hr 04/18/25 22:00 04/20/25 21:08 Rocephin 1 Gm / 100 Ml Nacl IV 05/18/25 21:59 200 mls/hr Q24H22 THANIA Administration Amiodarone HCl/Dextrose 360 mg in 200 mls @ 33 mls/hr 04/21/25 11:00 04/21/25 12:00 Nexterone 360 Mg/200 Ml Bag IV 05/21/25 10:59 33 mls/hr .Q6H4M THANIA 33 mls/hr Titration Protocol Loratadine 10 mg 04/20/25 10:00 04/21/25 11:47 Loratadine 10 Mg Tablet PO 05/18/25 09:59 10 mg DAILY THANIA Administration Metoprolol Tartrate 5 mg 04/21/25 03:00 04/21/25 03:32 Metoprolol Tartrate 5 Mg/5 Ml Vial IV 05/21/25 02:59 5 mg Q10M PRN Administration heart rate greater than 120 Miscellaneous Information 1 each 04/18/25 07:30 Medication Intervention 1 Each Each 05/18/25 07:29 .RN TO CHECK THANIA Miscellaneous Information 1 each 04/18/25 10:00 Medication Intervention 1 Each Each 05/18/25 09:59 .RN TO CHECK WITH PT THANIA Montelukast Sodium 10 mg 04/20/25 10:00 04/21/25 11:46 Montelukast Sodium 10 Mg Tablet PO 05/18/25 09:59 10 mg DAILY THANIA Administration Morphine Sulfate 5 mg 04/17/25 21:42 04/21/25 12:04 Morphine Sulfate 10 Mg/Ml Injection IV 04/22/25 21:41 5 mg Q4H PRN PRN Administration PAIN Nicotine 14 mg 04/18/25 15:00 04/21/25 11:48 Nicotine 14 Mg/Patch Patch TOP 05/18/25 14:59 14 mg Q24H10 THANIA Administration Ondansetron HCl 4 mg 04/17/25 16:33 04/20/25 12:16 Ondansetron Hcl 4 Mg/2 Ml Vial IV 05/17/25 16:32 4 mg Q6H PRN PRN Administration NAUSEA/VOMITING Pantoprazole Sodium 40 mg 04/18/25 22:00 04/20/25 21:08 Pantoprazole 40 Mg Vial IV 05/18/25 21:59 40 mg Q24H22 THANIA Administration Roflumilast 500 mcg 04/20/25 10:00 04/21/25 11:47 Roflumilast 500 Mcg Tablet PO 05/18/25 09:59 500 mcg DAILY THANIA Administration Simvastatin 20 mg 04/20/25 22:00 04/20/25 21:09 Simvastatin 20 Mg Tablet PO 05/18/25 21:59 20 mg QPM THANIA Administration Tiotropium [place] 1 ea 04/18/25 17:00 04/20/25 18:40 Tiotropium [place] 18 Mcg/Cap Inhaler IH 05/18/25 16:59 1 ea DINNER THANIA Administration Discontinued Medications Generic Name Dose Route Start Last Admin Trade Name Freq PRN Reason Stop Dose Admin Acetaminophen 650 mg 04/18/25 07:49 Acetaminophen 325 Mg Tablet PO 05/18/25 07:48 Q4H PRN PRN temp > 100 Acetaminophen 650 mg 04/18/25 07:57 04/20/25 00:23 Acetaminophen 325 Mg Tablet NG 05/18/25 07:48 650 mg Q4H PRN PRN Administration temp > 100 Albuterol/Ipratropium 3 ml 04/17/25 16:33 04/20/25 06:42 Ipratropium/Albuterol Sulfate 3 Ml Ampul.Neb IH 05/17/25 18:59 3 ml Q6HRT PRN Administration SHORTNESS OF BREATH/WHEEZING Budesonide 0.5 mg 04/17/25 22:00 04/20/25 06:42 Budesonide 0.5 Mg/2 Ml Ampul.Neb. IH 05/17/25 21:59 0.5 mg BID THANIA Administration Bupivacaine HCl Confirm 04/17/25 17:11 Bupivacaine Hcl 2.5 Mg/Ml 10 Ml Administered 04/17/25 17:12 Dose 20 ml .ROUTE .STK-MED ONE Bupivacaine HCl/Epinephrine Bitart Confirm 04/17/25 18:57 Bupivacaine Hcl/Epinephrine 10 Ml Vial Administered 04/17/25 18:58 Dose 40 ml .ROUTE .STK-MED ONE Buspirone HCl 15 mg 04/18/25 10:00 04/19/25 22:38 Buspirone Hcl 5 Mg Tablet NG 05/18/25 09:59 15 mg TID THANIA Administration Cholecalciferol 2,000 unit 04/18/25 10:00 04/19/25 09:34 Cholecalciferol (Vitamin D3) 1000 Unit Tablet NG 05/18/25 09:59 2,000 unit DAILY THANIA Administration Diltiazem HCl 10 mg 04/21/25 04:30 04/21/25 04:31 Diltiazem Hcl Iv 5 Mg/Ml Vial IV 04/21/25 04:31 10 mg STAT ONE Administration Fentanyl Citrate Confirm 04/17/25 16:58 Fentanyl Citrate 100 Mcg/2 Ml* Vial Administered 04/17/25 16:59 Dose 100 mcg .ROUTE .STK-MED ONE Fluoxetine HCl 60 mg 04/18/25 10:00 04/19/25 09:34 Fluoxetine Hcl 20 Mg Cap NG 05/18/25 09:59 60 mg DAILY THANIA Administration Guaifenesin 1,200 mg 04/18/25 10:00 Guaifenesin 600 Mg Tablet Er PO 05/18/25 09:59 BID THANIA Guaifenesin 10 ml 04/18/25 08:02 Guaifenesin 100 Mg/5 Ml 118 Ml Bottle NG 05/18/25 08:01 Q4H PRN PRN Sodium Chloride 1,000 mls @ 999 mls/hr 04/17/25 12:25 04/17/25 13:41 Sodium Chloride 0.9% 1000 Ml IV 04/17/25 13:25 Infused .Q1H1M STA Infusion Sodium Chloride Confirm 04/17/25 12:33 Sodium Chloride 0.9% 1000 Ml Administered 04/17/25 12:34 Dose 1,000 mls @ ud .ROUTE .STK-MED ONE Ceftriaxone Sodium 1 gm in 100 mls @ 200 mls/hr 04/17/25 14:48 04/17/25 16:07 Rocephin 1 Gm / 100 Ml Nacl IV 04/17/25 15:17 200 mls/hr STAT ONE Administration Metronidazole 500 mg in 100 mls @ 200 mls/hr 04/17/25 14:48 04/17/25 16:28 Flagyl 500 Mg Ivpb IV 04/17/25 15:17 200 mls/hr STAT STA Administration Sodium Chloride 1,000 mls @ 100 mls/hr 04/17/25 15:00 04/18/25 03:21 Sodium Chloride 0.9% 1000 Ml IV 05/17/25 14:59 Not Given .Q10H THANIA Ceftriaxone Sodium Confirm 04/17/25 15:10 Rocephin 1 Gm / 100 Ml Nacl Administered 04/17/25 15:11 Dose 1 gm in 100 mls @ ud IV .STK-MED ONE Ceftriaxone Sodium 1 gm in 100 mls @ 200 mls/hr 04/18/25 10:00 Rocephin 1 Gm / 100 Ml Nacl IV 05/18/25 09:59 Q24H10 THANIA Metronidazole 500 mg in 100 mls @ 200 mls/hr 04/17/25 18:00 04/17/25 18:16 Flagyl 500 Mg Ivpb IV 05/17/25 17:59 Not Given Q6HT THANIA Lactated Ringer's Confirm 04/17/25 17:11 Lactated Ringers Administered 04/17/25 17:12 Dose 1,000 mls @ ud IV .STK-MED ONE Ceftriaxone Sodium 1 gm in 100 mls @ 200 mls/hr 04/18/25 10:00 Rocephin 1 Gm / 100 Ml Nacl IV 05/18/25 09:59 Q24H10 THANIA Lactated Ringer's 1,000 mls @ 100 mls/hr 04/17/25 22:00 04/18/25 14:33 Lactated Ringers IV 05/17/25 21:59 100 mls/hr .Q10H THANIA Administration Ceftriaxone Sodium 1 gm in 100 mls @ 200 mls/hr 04/17/25 22:00 04/17/25 22:03 Rocephin 1 Gm / 100 Ml Nacl IV 05/17/25 22:05 200 mls/hr Q24H10 THANIA Administration Dextrose/Lactated Ringer's 1,000 mls @ 100 mls/hr 04/18/25 16:30 04/21/25 05 :14 Dextrose 5%-Lr Iv Solution 1000 Ml IV 05/18/25 16:29 100 mls/hr .Q10H THANIA Administration Potassium Chloride 20 meq in 100 mls @ 50 mls/hr 04/19/25 05:31 04/19/25 05:56 Potassium Chloride 20 Meq In Water 100ml IV 04/19/25 07:30 50 mls/hr STAT ONE Administration Potassium Chloride 100 mls @ 50 mls/hr 04/19/25 12:30 04/19/25 19:05 Potassium Chloride 20 Meq In Water 100ml IV 04/19/25 20:29 Not Given Q2H THANIA Amiodarone HCl 150 mg/ 103 mls @ 618 mls/hr 04/21/25 10:30 04/21/25 10:31 Dextrose IV 04/21/25 10:39 618 mls/hr STAT ONE Administration Protocol Loratadine 10 mg 04/18/25 10:00 04/19/25 09:34 Loratadine 10 Mg Tablet NG 05/18/25 09:59 10 mg DAILY THANIA Administration Midazolam HCl Confirm 04/17/25 16:58 Midazolam Hcl 2 Mg/2 Ml Vial Administered 04/17/25 16:59 Dose 2 mg .ROUTE .STK-MED ONE Miscellaneous Information 1 each 04/18/25 07:30 Medication Intervention 1 Each Each 05/18/25 07:29 .RN TO CHECK THANIA Montelukast Sodium 10 mg 04/18/25 10:00 04/19/25 09:34 Montelukast Sodium 10 Mg Tablet NG 05/18/25 09:59 10 mg DAILY THANIA Administration Morphine Sulfate 2 mg 04/17/25 12:25 04/17/25 12:38 Morphine Sulfate 2 Mg/Ml Inj IV 04/17/25 12:26 2 mg STAT ONE Administration Morphine Sulfate Confirm 04/17/25 12:32 Morphine Sulfate 2 Mg/Ml Inj Administered 04/17/25 12:33 Dose 2 mg .ROUTE .STK-MED ONE Morphine Sulfate 4 mg 04/17/25 14:48 04/17/25 14:53 Morphine Sulfate 4 Mg/Ml Injection IV 04/17/25 14:49 4 mg STAT ONE Administration Morphine Sulfate Confirm 04/17/25 14:52 Morphine Sulfate 4 Mg/Ml Injection Administered 04/17/25 14:53 Dose 4 mg .ROUTE .STK-MED ONE Morphine Sulfate 2 mg 04/17/25 16:35 04/17/25 22:00 Morphine Sulfate 2 Mg/Ml Inj IV 04/22/25 16:34 2 mg Q4H PRN PRN Administration SEVERE PAIN Non-Formulary Medication 2 puffs 04/17/25 22:00 04/18/25 19:13 Budesonide/Formoterol Fumarate [Budesonide-Formoterol 160-4.5] IH 05/17/25 21:59 Not Given BID THANIA Ondansetron HCl 4 mg 04/17/25 12:25 04/17/25 12:38 Ondansetron Hcl 4 Mg/2 Ml Vial IV 04/17/25 12:26 4 mg STAT ONE Administration Ondansetron HCl Confirm 04/17/25 12:32 Ondansetron Hcl 4 Mg/2 Ml Vial Administered 04/17/25 12:33 Dose 4 mg .ROUTE .STK-MED ONE Pantoprazole Sodium 40 mg 04/17/25 16:45 04/17/25 22:02 Pantoprazole 40 Mg Vial IV 05/17/25 16:44 40 mg Q24H THANIA Administration Phenylephrine HCl Confirm 04/17/25 18:13 Phenylephrine 10 Mg/Ml Vial Administered 04/17/25 18:14 Dose 10 mg .ROUTE .STK-MED ONE Potassium Bicarbonate 25 meq 04/20/25 08:00 04/20/25 13:04 Potassium Bicarbonate 25 Meq Tab PO 04/20/25 12:01 Not Given Q2H THANIA Potassium Chloride 40 meq 04/20/25 06:45 04/20/25 07:05 Potassium Chloride Tab 10 Meq Tab PO 04/20/25 06:46 40 meq STAT ONE Administration Propofol Confirm 04/17/25 16:58 Propofol 200 Mg/20 Ml Vial Administered 04/17/25 16:59 Dose 200 mg IV .STK-MED ONE Rocuronium [place] Confirm 04/17/25 16:58 Rocuronium [place] 50 Mg/5 Ml Vial Administered 04/17/25 16:59 Dose 50 mg IV .STK-MED ONE Roflumilast 500 mcg 04/18/25 10:00 04/19/25 09:35 Roflumilast 500 Mcg Tablet NG 05/18/25 09:59 500 mcg DAILY THANIA Administration Simvastatin 20 mg 04/18/25 22:00 04/19/25 22:37 Simvastatin 20 Mg Tablet NG 05/18/25 21:59 20 mg QPM THANIA Administration Succinylcholine Chloride Confirm 04/17/25 16:58 Succinylcholine Chloride 200mg/10 Ml Vial Administered 04/17/25 16:59 Dose 100 mg .ROUTE .STK-MED ONE Sugammadex Sodium Confirm 04/17/25 19:15 Sugammadex Sodium 200 Mg/2 Ml Vial Administered 04/17/25 19:16 Dose 200 mg IV .STK-MED ONE Theophylline 300 mg 04/18/25 10:00 Theophylline Anhydrous 400 Mg Tab.Er.24hr Tablet NG 05/18/25 09:59 BID THANIA Multi-Disciplinary Progress Notes: Multi-Disciplinary Progress Notes 04/21/25 13:15 Case Management Note by Zoya Garsia PATIENT MOVED BACK TO ICU TODAY- PATIENT DENIED ANY NEW NEEDS AT DC 04/20/25- WILL REASSESS AGAIN CLOSER TO TIME OF DC Initialized on 04/21/25 13:15 - END OF NOTE Assessment/Plan (1) Incarcerated hernia Current Visit: Yes Status: Acute Code(s): K46.0 - UNSP ABDOMINAL HERNIA WITH OBSTRUCTION, WITHOUT GANGRENE (2) UTI (urinary tract infection) Current Visit: Yes Status: Acute Code(s): N39.0 - URINARY TRACT INFECTION, SITE NOT SPECIFIED (3) Leukocytosis Current Visit: Yes Status: Acute Code(s): D72.829 - ELEVATED WHITE BLOOD CELL COUNT, UNSPECIFIED (4) Abdominal pain Current Visit: Yes Status: Acute Code(s): R10.9 - UNSPECIFIED ABDOMINAL PAIN (5) Nausea vomiting and diarrhea Current Visit: Yes Status: Acute Code(s): R11.2 - NAUSEA WITH VOMITING, UNSPECIFIED; R19.7 - DIARRHEA, UNSPECIFIED (6) Hypokalemia Current Visit: Yes Status: Acute Code(s): E87.6 - HYPOKALEMIA (7) COPD (chronic obstructive pulmonary disease) Current Visit: Yes Status: Chronic (8) Depression Current Visit: Yes Status: Chronic Code(s): F32.A - DEPRESSION, UNSPECIFIED (9) History of lung cancer Current Visit: Yes Status: Chronic Code(s): Z85.118 - PERSONAL HISTORY OF MALIGNANT NEOPLASM OF BRONCHUS AND LUNG (10) Smoker Current Visit: Yes Status: Chronic Code(s): F17.200 - NICOTINE DEPENDENCE, UNSPECIFIED, UNCOMPLICATED (11) Hyperlipidemia Current Visit: Yes Status: Chronic Assessment & Plan: (1) Incarcerated hernia Current Visit: Yes Status: Acute Assessment & Plan: - Pt pulled out NG- and refusing to be replaced. - GS to be made aware by nurse - CHARISMA Jo today. - NPO - No BM nor passing gas as of this AM - POD #2 from surgery - Continue ceftriaxone/Flagyl per GS recs - Surgery following - CBC, CMP reviewed - Narcotic pain control IV - BX x2 negative - SOFY drain x1 in place - Abd. binder in place 04/20 - POD #3 from surgery - Surgery aware NG is out and ok with this. - Awaiting surgery recs - Passing gas no BM - Hgb drop from 11.2 to 9.9 today- denies vomiting or any BM- nurse to make surgery aware. 04/21 - Hgb 10.0 today- stable- + bloody stool last night - Sandro ZAFAR to make GS aware of bloody stool and Hgb drop yesterday as phone call regarding this yesterday was never addressed. - GS recommend to advance diet and d/c sofy drain - + several loose stools last night - Change IV pain meds to PO - Stop IVF - CBC, CMP reviewed Code(s): K46.0 - UNSP ABDOMINAL HERNIA WITH OBSTRUCTION, WITHOUT GANGRENE (2) UTI (urinary tract infection) Current Visit: Yes Status: Acute Assessment & Plan: - UC + Klebsiella Pneumoniae - repeat UC negative - Continue IV antibiotics 04/21 - Stop IVF Code(s): N39.0 - URINARY TRACT INFECTION, SITE NOT SPECIFIED (3) Leukocytosis Current Visit: Yes Status: Acute Assessment & Plan: - WBC 12.8- improving- trend 04/20 - resolved Code(s): D72.829 - ELEVATED WHITE BLOOD CELL COUNT, UNSPECIFIED (4) Abdominal pain Current Visit: Yes Status: Acute Assessment & Plan: - 2:2 hernia repain and bowel resection - CT Abd/Pelvis: 1. Picture suggestive of right-sided incarcerated inguinal hernia with omentum and small bowel content and subsequent small bowel obstruction. However, the appearance of two collapsed efferent and afferent bowel loops at the entry point of the hernia could result in a form of closed-loop obstruction, together with luminal dilatation and fatty stranding within the hernia sac ( however, there is normal enhancement of the bowel wall), which can suggest impending strangulation. Advise urgent surgical consultation. 2. A tiny fat-containing non-complicated periumbilical hernia. 3. Minimal circumferential uniform mural thickening of the pylorus is likely of inflammatory origin. Correlate clinically and further UGE if clinically warranted. 4. Multiple non-complicated colonic diverticulosis. 5. A small sliding hiatus hernia. 6. Fatty liver. 7. Bilateral emphysema with bilateral lower lobar more along right basal atelectatic changes, sequel of prior inflammatory process. Code(s): R10.9 - UNSPECIFIED ABDOMINAL PAIN (5) Nausea vomiting and diarrhea Current Visit: Yes Status: Acute Assessment & Plan: Assessment & Plan: -2/2 to incarcerated hernia -Antiemetics as needed. -NG tube decompression -Fluid and electrolyte monitoring; replace as needed 04/20 - NG removed by pt on 04/19 - N/V/D resolved Code(s): R11.2 - NAUSEA WITH VOMITING, UNSPECIFIED; R19.7 - DIARRHEA, UNSPECIFIED (6) Hypokalemia Current Visit: Yes Status: Acute Assessment & Plan: - K+ 3.1, repeat after replacement- 3.3 - Repeat IV replacement ordered- trend 2 hours after IV dose x1 given - Tele- ICU- critical care - Check Mg+ in AM - 2:2 N/V/D 04/20 - K+ 3.1- replaced- trend 04/21 - resolved Code(s): E87.6 - HYPOKALEMIA (7) COPD (chronic obstructive pulmonary disease) Current Visit: Yes Status: Chronic Assessment & Plan: - Maintain at baseline 4L O2- 96% - Continue home meds - Incentive spirometry as tolerated. - Avoid sedatives that worsen respiratory drive. - Resume inhalers/nebulizers as appropriate. - Co2 33- trend- chronic 04/20 - Co2 36- trend - 4LNC at 93% 04/21 - Requiring 5lNC at bedtime- now on 4lNC at 94% - CO2 35 (8) Depression Current Visit: Yes Status: Chronic Assessment & Plan: -Continue home meds s/p surgery Code(s): F32.A - DEPRESSION, UNSPECIFIED (9) History of lung cancer Current Visit: Yes Status: Chronic Assessment & Plan: -s/p radiation 2023 Code(s): Z85.118 - PERSONAL HISTORY OF MALIGNANT NEOPLASM OF BRONCHUS AND LUNG (10) Smoker Current Visit: Yes Status: Chronic Assessment & Plan: - Advised cessation- education provided - Nicotine patch Code(s): F17.200 - NICOTINE DEPENDENCE, UNSPECIFIED, UNCOMPLICATED (11) Hyperlipidemia Current Visit: Yes Status: Chronic Assessment & Plan: - Continue statin Code(s): E78.5 - HYPERLIPIDEMIA, UNSPECIFIED Code(s): E78.5 - HYPERLIPIDEMIA, UNSPECIFIED (12) Flutter-fibrillation Current Visit: Yes Status: Acute Assessment & Plan: - New onset a-fib, a-flutter - Metoprolol and cardizem given without improvement - Cardiology consulted and placed on amiodarone gtt - ICU- Tele - Therapeutic lovenox- ok per - recommended by Cardiology - Discuss with CM in AM cost of Eliquis at D/C for pt. VTE: Therapeutic lovenox- ok per PPI: Protonix IV Dispo: pending surgery recs Code status: Full Next of Kin: Martin Sarkar [phone] Plan of care/critical care time spent > 50 mins Code(s): I48.91 - UNSPECIFIED ATRIAL FIBRILLATION; I48.92 - UNSPECIFIED ATRIAL FLUTTER
--- NOTE | 2025-04-21 17:46 | PCM.CONS ---
History of Present Illness - Date of Consult Date of Encounter: 04/21/25 Consulting Timing Machine Operator: MARTY LLANES MD Requesting Provider: Attending Provider: CHEL PAIGE MD Primary Care Provider: PCP: PRANAV CORONA Consent was: Given for this tele-med encounter - Consult Narrative Reason for Consult: Atrial flutter HPI: Patient is a 64 yo female with history of HFpEF (55-60%), HTN, COPD, lung cancer S/P RT in 2023, and tobacco abuse who presented on 04/17/2025 with an incarcerated hernia with a small bowel obstruction.. She underwent a right inguinal hernia repair and bowel resection on the night of admission. She developed atrial flutter with variable AV block early this am prompting consultation. This occurred at approximately 0245 with a ventricular response in the 140s and 150s. She was treated with metoprolol 5 mg IVP x3 doses over the subsequent 45 minutes followed by diltiazem 10 mg IVP at 0430. Her VR remained 127-147 bpm. Her SBP was staying in the 90s. I was contacted at 0920. After reviewing her ECGs and chart, I recommended giving Ms. Woods amiodarone 150 mg IVP followed by a 1 mg/min infusion x 6 hours followed by 0.5 mg/min. She chemically converted to sinus rhythm at 1411, and her amiodarone infusion was discontinued after the first 6 hours. Her surgical team gave clearance for systemic anticoagulation. In seeing patient this afternoon, she denied any symptoms related to atrial flutter. She denied any palpitations, chest discomfort, shortness of breath, or light headedness during her bout of atrial flutter. Her postop pain was under control when this arrhythmia started. She was only aware of this arrhythmia because of the nursing staff. She denies any previous history of arrhythmias. She had some rectal bleeding 4 years ago and had a colonoscopy only showing hemorrhoids. She denies any melena, hematochezia, or hematemesis prior to admission. She was volume depleted at time of admission and was continued on lactated Ringers until this am. Echocardiogram today showed moderate concentric LVH, normal LV systolic function with an EF 55-60%, and a high CVP. cc:: The requesting physician will be sent a copy of the consult. Review of Systems - Review of Systems All systems: as per HPI (Complete ROS was performed. Pertinent positives and negatives in HPI.) - Past Medical History Past Medical History: Yes ENT History: Cataracts Cardiac History: Congestive Heart Failure Respiratory History: CHF, COPD GI Medical History: Hernia Pyscho-Social History: Depression Comment: patient states she had a spot to right lung, patient did not have biopsy; however, patient had radiation treatments and states the spot is now gone - Past Surgical History Past Surgical History: Yes Neuro Surgical History: No Pertinent History GI Surgical History: Cholecystectomy Female Surgical History: Section Other Surgical History: NERVE [employer]ULATOR [employer]ACED---NO LONGER WORKS Significant Family History: cancer, stroke - Social History Smoking Status: Current every day smoker (1/2 ppd) Exposure to second hand smoke: Yes Alcohol: None Drug Use: none - Social Determinants of Health Will the patient participate in the screening: Yes Do you worry about a steady place to live?: Yes Do you have any problems with any of the following?: Pest (bugs,ants,or mice), Mold, Other In the past 12 months,have you had to go without utilities?: No Have you or anyone in your house had to go without enough: No Transportation Issues: No Has anyone in your support network made you feel unsafe?: No Medications & Allergies Home Medications: Home Medication List Albuterol 2.5 mg/3 ml Neb [Proventil 2.5 mg/3 ml Neb] 3 ml IH Q4HPRN PRN 04/17/25 [History Confirmed 04/17/25] Albuterol Sulfate [Albuterol Sulfate Hfa] 2 puffs IH Q6HPRN PRN 04/17/25 [History Confirmed 04/17/25] Azelastine/Fluticasone [Azelastin-Flutic 137-50Mcg Spr] 1 spray NS DAILY 04/17/25 [History Confirmed 04/17/25] Budesonide/Formoterol Fumarate [Budesonide-Formoterol 160-4.5] 2 puffs IH BID 04/17/25 [History Confirmed 04/17/25] Buspirone HCl 15 mg PO TID 04/17/25 [History Confirmed 04/17/25] Cholecalciferol (Vitamin D3) [Vitamin D3] 1 tab PO DAILY 04/17/25 [History Confirmed 04/17/25] Clonidine HCl 0.1 mg [Clonidine 0.1 mg Tablet] 0.1 mg PO HS 04/17/25 [History Confirmed 04/17/25] Fluoxetine HCl 60 mg PO DAILY 04/17/25 [History Confirmed 04/17/25] Fluticasone Furoate 2 spray IH DAILY 04/17/25 [History Confirmed 04/17/25] Furosemide [Lasix] 20 mg PO DAILY 04/17/25 [History Confirmed 04/17/25] Guaifenesin 600 mg ER [Mucinex 600MG ER Tabs] 1,200 mg PO BID 04/17/25 [History Confirmed 04/17/25] Ibuprofen 800 mg PO TIDPRN PRN 04/17/25 [History Confirmed 04/17/25] Loratadine 10 mg [Claritin 10 mg] 10 mg PO DAILY 04/17/25 [History Confirmed 04/17/25] Montelukast Sodium 10 mg [Singulair 10 MG] 10 mg PO DAILY 04/17/25 [History Confirmed 04/17/25] Pantoprazole 20 mg [Protonix 20MG Tablet] 20 mg PO DAILY 04/17/25 [History Confirmed 04/17/25] Potassium Chloride 40 meq PO DAILY 04/17/25 [History Confirmed 04/17/25] Roflumilast [Daliresp] 500 mcg PO DAILY 04/17/25 [History Confirmed 04/17/25] Simvastatin 20Mg [Zocor 20Mg] 20 mg PO QPM 04/17/25 [History Confirmed 04/17/25] Theophylline Anhydrous [Theophylline ER] 300 mg PO BID 04/17/25 [History Confirmed 04/17/25] Tiotropium Spearman Inhaler [Spiriva 18 Mcg/Cap Inhaler] 1 cap IH DINNER 04/17/25 [History Confirmed 04/17/25] Allergies/Adverse Reactions: Allergies Allergy/AdvReac Type Severity Reaction Status Date / Time Penicillins Allergy Verified 04/17/25 12:30 Exam - Vitals Vital Signs: Vital Signs - 24 hr Temp Pulse Resp BP BP Pulse Ox 04/21/25 16:00 98.7 F 64 20 105/58 97 04/21/25 15:31 58 L 13 106/68 96 04/21/25 15:00 68 18 94/70 92 L 04/21/25 14:30 62 19 96/69 97 04/21/25 14:00 59 L 14 88/68 98 04/21/25 13:30 115 H 19 112/77 95 04/21/25 13:00 96.9 F 121 H 23 99/70 93 L 04/21/25 12:30 132 H 16 116/72 94 L 04/21/25 12:01 108 H 15 109/77 93 L 04/21/25 12:00 98.4 F 121 H 18 109/77 91 L 04/21/25 11:30 120 H 23 107/75 92 L 04/21/25 11:00 109 H 15 95/69 93 L 04/21/25 10:45 108 H 18 87/69 93 L 04/21/25 07:10 52 L 18 94 L 04/21/25 07:06 98.1 F 147 H 18 96/71 94 L 04/21/25 04:00 97.1 F 127 H 18 114/78 91 L 04/21/25 00:00 86 18 95 04/20/25 20:22 98.1 F 88 20 123/76 93 L 04/20/25 18:41 75 16 95 General:: no acute distress HEENT: EOMI, JVD (to jaw with patient sitting up 50 degrees) Cardiovascular Exam: regular rate/rhythm, normal heart sounds (Distant), No murmur, No friction rub, No gallop Respiratory Exam: crackles/rales (Bibasilar) SpO2: 97 Oxygen Delivery: Nasal Cannula Gastrointestinal/Abdomen Exam: normal bowel sounds Extremity Exam: other (2+ DP pulses), No edema Results Vital Signs: Vital Signs - 24 hr Temp Pulse Resp BP BP Pulse Ox 04/21/25 16:00 98.7 F 64 20 105/58 97 04/21/25 15:31 58 L 13 106/68 96 04/21/25 15:00 68 18 94/70 92 L 04/21/25 14:30 62 19 96/69 97 04/21/25 14:00 59 L 14 88/68 98 04/21/25 13:30 115 H 19 112/77 95 04/21/25 13:00 96.9 F 121 H 23 99/70 93 L 11/20/25 12:30 132 H 16 116/72 94 L 04/21/25 12:01 108 H 15 109/77 93 L 04/21/25 12:00 98.4 F 121 H 18 109/77 91 L 04/21/25 11:30 120 H 23 107/75 92 L 04/21/25 11:00 109 H 15 95/69 93 L 04/21/25 10:45 108 H 18 87/69 93 L 04/21/25 07:10 52 L 18 94 L 04/21/25 07:06 98.1 F 147 H 18 96/71 94 L 04/21/25 04:00 97.1 F 127 H 18 114/78 91 L 04/21/25 00:00 86 18 95 04/20/25 20:22 98.1 F 88 20 123/76 93 L 04/20/25 18:41 75 16 95 Pain Assessment - Last Documented Pain Intensity 2 Pain Scale Used 0-10 Pain Scale Intake and Output: Intake & Output 04/19/25 04/20/25 04/21/25 04/22/25 11:59 11:59 11:59 11:59 Intake Total 2170 3670 1255 720 Output Total 2445 235 Balance -275 3435 1255 720 Weight 64.9 kg 71.3 kg 68.5 kg LAB: I have reviewed the Labs in [employer]. Radiology Exams: Radiology Procedures Category Date Time Status ECHO W/2D AND DOPPLER [US] Routine Exams 04/21/25 09:53 Taken TTE 04/21/2025: 1. Mildly dilated atria. Normal ventricular chamber sizes. 2. Moderate concentric left ventricular hypertrophy. 3. Normal left ventricular systolic function without focal wall motion abnormalities. Estimated EF 55-60%. 4. Unable to determine grade of diastolic dysfunction in the setting of atrial flutter. 5. Normal right ventricular systolic function. 6. Mild aortic sclerosis without stenosis. 7. Doppler: Trace aortic regurgitation. 8. Unable to determine PA systolic pressure. 9. High right atrial pressure (15 mmHg). 10. No pericardial effusion. CXR (AP) 04/21/2025: 1. Properly positioned NGT. 2. No acute cardiopulmonary abnormality. 3. Mild cardiomegaly. CT of Abdomen and Pelvis with contrast 04/17/2025: 1. Picture suggestive of right-sided incarcerated inguinal hernia with omentum and small bowel content and subsequent small bowel obstruction. However, the appearance of two collapsed efferent and afferent bowel loops at the entry point of the hernia could result in a form of closed-loop obstruction, together with luminal dilatation and fatty stranding within the hernia sac ( however, there is normal enhancement of the bowel wall), which can suggest impending strangulation. Advise urgent surgical consultation. 2. A tiny fat-containing non-complicated periumbilical hernia. 3. Minimal circumferential uniform mural thickening of the pylorus is likely of inflammatory origin. Correlate clinically and further UGE if clinically warranted. 4. Multiple non-complicated colonic diverticulosis. 5. A small sliding hiatus hernia. 6. Fatty liver. 7. Bilateral emphysema with bilateral lower lobar more along right basal atelectatic changes, sequel of prior inflammatory process. Tracing 1 Attestation: I have reviewed this EKG and interpreted as documented below. EKG Narrative: ECGs: 04/21/2025 at 0505: Atrial flutter with variable AV block at 118 bpm. Nonspecific T wave abnormality. 04/21/2025 at 0419: Atrial flutter with variable AV block at 126 bpm. Nonspecific T wave abnormality. 04/21/2025 at 0252: Atrial flutter with variable AV block at [address] and T wave changes. 04/17/2025: NSR with occasional PACs at 88 bpm. LAE. Nonspecific T wave abnormality. Telemetry 04/21/2025 at 1411: Converted from atrial flutter to sinus rhythm. Multi-Disciplinary Progress Notes: Multi-Disciplinary Progress Notes 04/21/25 15:50 Radiology Note by MARTY LLANES TRANSTHORACIC ECHOCARDIOGRAM 04/21/2025: 1. Mildly dilated atria. Normal ventricular chamber sizes. 2. Moderate concentric left ventricular hypertrophy. 3. Normal left ventricular systolic function without focal wall motion abnormalities. Estimated EF 55-60%. 4. Unable to determine grade of diastolic dysfunction in the setting of atrial flutter. 5. Normal right ventricular systolic function. 6. Mild aortic sclerosis without stenosis. 7. Doppler: Trace aortic regurgitation. 8. Unable to determine PA systolic pressure. 9. High right atrial pressure (15 mmHg). 10. No pericardial effusion. Marty Llanes MD [employer] Initialized on 04/21/25 15:50 - END OF NOTE 04/21/25 13:15 Case Management Note by Zoya Garsia PATIENT MOVED BACK TO ICU TODAY- PATIENT DENIED ANY NEW NEEDS AT DC 04/20/25- WILL REASSESS AGAIN CLOSER TO TIME OF DC Initialized on 04/21/25 13:15 - END OF NOTE Assessment & Plan (1) Atrial flutter, paroxysmal Current Visit: Yes Status: Acute Assessment & Plan: 12 hour asymptomatic bout today. Unclear if she has had other bouts with her lack of symptoms. Successful chemical cardioversion with amiodarone. Amiodarone has already been discontinued. Will start metoprolol succinate 12.5 mg by mouth daily and increase dose as HR and BP permit. [id number] score = 3 which places her at a moderate to high risk of an embolic event. Will treat with Lovenox 1 mg/kg every 12 hours for systemic anticoagulation and change to Eliquis 5 mg by mouth BID by time of discharge. She will need to follow up with her cardiology team (Dr Cruz and Javed Billings NP in [place], [place]) Code(s): I48.92 - UNSPECIFIED ATRIAL FLUTTER (2) (HFpEF) heart failure with preserved ejection fraction Current Visit: Yes Status: Acute Assessment & Plan: Developed volume overload with the administration of IVFs and the discontinuat ion of her furosemide at admission. Will give furosemide 20 mg IVP this evening followed by furosemide 20 mg by mouth daily. If JVD persists tomorrow, will give a second IV dose of furosemide. Code(s): I50.30 - UNSPECIFIED DIASTOLIC (CONGESTIVE) HEART FAILURE (3) HTN (hypertension) Current Visit: Yes Status: Chronic Assessment & Plan: Well controlled post op though borderline low BP readings today. Will treat with metoprolol for now. Do not plan to restart clonidine as this can cause bradycardia. Code(s): I10 - ESSENTIAL (PRIMARY) HYPERTENSION (4) Incarcerated hernia Current Visit: Yes Status: Resolved Assessment & Plan: S/P inguinal hernia repair and partial bowel resection. Recovering nicely. As per surgical team. Code(s): K46.0 - UNSP ABDOMINAL HERNIA WITH OBSTRUCTION, WITHOUT GANGRENE - Encounter Encounter: The entirety of this encounter was performed via Telemedicine using audio and visual. Case discussed with Alejandra Lang NP. Marty Llanes MD [facility] [phone]
[2025-04-21] MEDS ORDERED: Toprol-Xl 25MG Tablets ONE (19:17)
[2025-04-21] MEDS: Toprol-Xl 25MG Tablets PO SCH (19:22)
[2025-04-21] MEDS: Lasix 20 MG/2 ML IV ONE (19:22)
[2025-04-21] MEDS: ENOXAPARIN SODIUM SQ SCH (21:37)
[2025-04-22] MEDS: NORCO 5/325 MG PO PRN (02:16)
[2025-04-22 05:19] LABS: BASOPHIL % 0.7 % (0.1-1.2); Basophil (Absolute #) 0.06 x10^3/uL (0.01-0.08); Eosinophil (Absolute #) 0.18 x10^3/uL (0.04-0.36); Hematocrit 32.1 % (34.1-44.9); Hemoglobin 10.2 g/dL (11.2-15.7); IMMATURE GRAN # 0.03 x10^3u/L (0.001-0.031); IMMATURE GRAN % 0.3 % (0.001-0.429); Lymphocyte (Absolute #) 1.64 x10^3/uL (1.18-3.74); Mean Corpuscular Hemoglobin 31.2 pg (25.6-32.2); Mean Corpuscular Hgb Concent. 31.8 g/dL (32.2-35.5); Monocyte (Absolute #) 0.89 x10^3/uL (0.24-0.86); NUCLEATED RBC # 0.00 x10^3u/L (0.00-0.012); NUCLEATED RBC % 0.0 % (0.00-0.2); Platelet Count 200 x10^3/uL (182-369); Red Blood Count 3.27 x10^6/uL (3.93-5.22); White Blood Count 8.9 x10^3/uL (3.98-10.04)
[2025-04-22 06:22] LABS: Calcium 9.2 mg/dL (8.4-10.2); Carbon Dioxide 35.0 mmol/L (22-30); Creatinine 1 0.5 mg/dL (0.52-1.04); EST GLOMERULAR FILTRATION RATE 105.3 ML/MIN; Glucose 91.0 mg/dL (74-106); Potassium 3.5 mmol/L (3.5-5.1); SGOT/AST 20.0 U/L (14-36); SGPT/ALT 9.0 U/L (0-35); Total Protein 5.7 g/dL (6.3-8.2)
[2025-04-22] MEDS: ELIQUIS 2.5 MG TABLET PO SCH (10:11)
[2025-04-22] MEDS: LASIX 20 MG PO SCH (10:12)
[2025-04-22] MEDS: Toprol-Xl 25MG Tablets PO SCH (10:13)
--- NOTE | 2025-04-22 11:28 | PCM.DS ---
Discharge Summary Date of Admission: 04/17/25 15:56 Date of Discharge: 04/22/25 Admitting Physician: CHEL PAIGE MD Consults: Consults on Case 04/17/25 12:[address] [facility] Referral ONCE 04/21/25 07:35 Consult Cardiology ROUTINE Primary Care Provider: PRANAV CORONA Allergies Allergies Penicillins Allergy (Verified 04/17/25 12:30) Hospital Summary - Hospital Course Hospital Course: 04/19/25 Met with patient bedside. She is POD#2 s/p hernia repair and bowel resection. Endorses she is doing well. Pain controlled with numerical pain rating at 5/10 at surgical incision site. MLI with surgical dressing, some shadow drainage. SOFY x 1 with moderate sanguineous drainage. Hypoactive BS. No flatulence or bowel movements. NG pulled out by pt and she is refusing for it to be replaced. Nurse has a call out to GS to discuss. Continue Ceftriaxone/Flagyl . K+ 3.1 and replaced. UC + klebsiella. BC x2 negative. WBC improved at 12.8. Continue D5NS at 100ml/hr as pt is NPO. Denies fever,cough, sob, cp, dizziness, N/V/D. 04/20/25 Patient sitting up in bed. She states she is feeling better today overall. She walked 120 feet today with staff, without any problems. She has not had any bowel movements yet, however she is passing gas. She states that she does have a little bit of stomach pain but it is not too bad. She pulled her NG out yesterday and refused to have it replaced and surgery is okay with this. She still has a SOFY drain x [address]. She is requiring narcotic pain medicine still IV. Potassium was 3.1 today and replaced. Hemoglobin dropped to 9.9 from 11.2 yesterday. I asked nursing to tell surgery of this finding. White blood cell count is okay today at 9.2. Continue ceftriaxone and Flagyl per surgery recommendations. Urine culture was positive for Klebsiella. Patient denies any further concerns at this time. 04/21/25 Patient resting in bed. She states that she feels better today however she went into A-fib a flutter last night. She was given several p.o. meds that and IV meds for her heart rate and this did not control her heart rate well. Cardiology consulted this morning and patient was started on an amiodarone drip. Heart rate has improved since this drip was started. Patient is in the ICU currently for continuous telemetry monitoring. An EKG was done several times over the night and Echo ordered for this AM. Per general surgery note patient is to advance to regular diet and SOFY drain to be DC'd today. Patient has had several loose stools overnight as well as passing gas now. She denies any further concerns at this time. 04/22/25 Patient sitting up in bed she feels much better today. She states that she feels like she is ready to go home. Patient was started on therapeutic Lovenox yesterday twice daily for A-fib/ flutter per approval of general surgery. Patient changed to Eliquis today 5 mg twice daily. This prescription was sent in and case management confirmed that this is 100% covered by her insurance. Cardiology change metoprolol to 25 daily this morning and we will continue to to monitor heart rate and blood pressure to see if patient is tolerating this well. Amiodarone drip was stopped yesterday. EF is 55 to 60%. Hemoglobin stable at 10.2. Patient has had several bowel movements in the last 2 days. Will discuss patient case with surgery and if okay patient may D/C today we will need their input on outpatient antibiotics as well as when to have rody taken out. Patient denies any further concerns at this time and is refusing any home health care needs. - Vitals & Intake/Output Vital Signs: Vital Signs Temperature 97.7 F 04/22/25 08:00 Pulse Rate 81 04/22/25 08:00 Respiratory Rate 17 04/22/25 08:00 Blood Pressure 153/87 04/22/25 08:00 O2 Sat by Pulse Oximetry 91 L 04/22/25 08:00 Intake & Output: Intake & Output 04/19/25 04/20/25 04/21/25 04/22/25 11:59 11:59 11:59 11:59 Intake Total 2170 3670 1255 2098 Output Total 2445 235 Balance -275 3435 1255 2098 Weight 64.9 kg 71.3 kg 68.5 kg - Lab Result Diagrams: 04/22/25 04:17 04/22/25 04:17 Lab Results-Last 24 Hrs: Lab Results-Last 24 Hours 04/21/25 04/21/25 04/21/25 Range/Units 11:48 15:55 21:02 WBC (3.98-10.04) x10^3/uL RBC (3.93-5.22) x10^6/uL Hgb (11.2-15.7) g/dL Hct (34.1-44.9) % MCV (79.4-94.8) fL MCH (25.6-32.2) pg MCHC (32.2-35.5) g/dL RDW (11.7-14.4) % Plt Count (182-369) x10^3/uL MPV (9.4-12.3) fL Gran % (34.0-71.1) % Immature Gran % (Auto) (0.001-0.429) % Nucleat RBC Rel Count (0.00-0.2) % Eos # (Auto) (0.04-0.36) x10^3/uL Immature Gran # (Auto) (0.001-0.031) x10^3u/L Absolute Lymphs (auto) (1.18-3.74) x10^3/uL Absolute Monos (auto) (0.24-0.86) x10^3/uL Absolute Nucleated RBC (0.00-0.012) x10^3u/L Lymphocytes % (19.3-51.7) % Monocytes % (4.7-12.5) % Eosinophils % (0.7-5.8) % Basophils % (0.1-1.2) % Absolute Granulocytes (1.56-6.13) x10^3/uL Basophils # (0.01-0.08) x10^3/uL Sodium (135-145) mmol/L Potassium (3.5-5.1) mmol/L Chloride (98-107) mmol/L Carbon Dioxide (22-30) mmol/L Anion Gap (5-15) MEQ/L BUN (7-17) mg/dL Creatinine (0.52-1.04) mg/dL Estimated GFR ML/MIN Glucose (74-106) mg/dL POC Glucometer 98 106 92 (74 to 106) mg/dL Calcium (8.4-10.2) mg/dL Total Bilirubin (0.2-1.3) mg/dL AST (14-36) U/L ALT (0-35) U/L Alkaline Phosphatase (38-126) U/L Serum Total Protein (6.3-8.2) g/dL Albumin (3.5-5.0) g/dL 04/22/25 04/22/25 04/22/25 Range/Units 00:09 04:16 04:17 WBC 8.9 (3.98-10.04) x10^3/uL RBC 3.27 L (3.93-5.22) x10^6/uL Hgb 10.2 L (11.2-15.7) g/dL Hct 32.1 L (34.1-44.9) % MCV 98.2 H (79.4-94.8) fL MCH 31.2 (25.6-32.2) pg MCHC 31.8 L (32.2-35.5) g/dL RDW 13.2 (11.7-14.4) % Plt Count 200 (182-369) x10^3/uL MPV 10.4 (9.4-12.3) fL Gran % 68.5 (34.0-71.1) % Immature Gran % (Auto) 0.3 (0.001-0.429) % Nucleat RBC Rel Count 0.0 (0.00-0.2) % Eos # (Auto) 0.18 (0.04-0.36) x10^3/uL Immature Gran # (Auto) 0.03 (0.001-0.031) x10^3u/L Absolute Lymphs (auto) 1.64 (1.18-3.74) x10^3/uL Absolute Monos (auto) 0.89 H (0.24-0.86) x10^3/uL Absolute Nucleated RBC 0.00 (0.00-0.012) x10^3u/L Lymphocytes % 18.5 L (19.3-51.7) % Monocytes % 10.0 (4.7-12.5) % Eosinophils % 2.0 (0.7-5.8) % Basophils % 0.7 (0.1-1.2) % Absolute Granulocytes 6.08 (1.56-6.13) x10^3/uL Basophils # 0.06 (0.01-0.08) x10^3/uL Sodium (135-145) mmol/L Potassium (3.5-5.1) mmol/L Chloride (98-107) mmol/L Carbon Dioxide (22-30) mmol/L Anion Gap (5-15) MEQ/L BUN (7-17) mg/dL Creatinine (0.52-1.04) mg/dL Estimated GFR ML/MIN Glucose (74-106) mg/dL POC Glucometer 97 93 (74 to 106) mg/dL Calcium (8.4-10.2) mg/dL Total Bilirubin (0.2-1.3) mg/dL AST (14-36) U/L ALT (0-35) U/L Alkaline Phosphatase (38-126) U/L Serum Total Protein (6.3-8.2) g/dL Albumin (3.5-5.0) g/dL 04/22/25 Range/Units 04:17 WBC (3.98-10.04) x10^3/uL RBC (3.93-5.22) x10^6/uL Hgb (11.2-15.7) g/dL Hct (34.1-44.9) % MCV (79.4-94.8) fL MCH (25.6-32.2) pg MCHC (32.2-35.5) g/dL RDW (11.7-14.4) % Plt Count (182-369) x10^3/uL MPV (9.4-12.3) fL Gran % (34.0-71.1) % Immature Gran % (Auto) (0.001-0.429) % Nucleat RBC Rel Count (0.00-0.2) % Eos # (Auto) (0.04-0.36) x10^3/uL Immature Gran # (Auto) (0.001-0.031) x10^3u/L Absolute Lymphs (auto) (1.18-3.74) x10^3/uL Absolute Monos (auto) (0.24-0.86) x10^3/uL Absolute Nucleated RBC (0.00-0.012) x10^3u/L Lymphocytes % (19.3-51.7) % Monocytes % (4.7-12.5) % Eosinophils % (0.7-5.8) % Basophils % (0.1-1.2) % Absolute Granulocytes (1.56-6.13) x10^3/uL Basophils # (0.01-0.08) x10^3/uL Sodium 135 (135-145) mmol/L Potassium 3.5 (3.5-5.1) mmol/L Chloride 95 L (98-107) mmol/L Carbon Dioxide 35 H (22-30) mmol/L Anion Gap 8.9 (5-15) MEQ/L BUN 11 (7-17) mg/dL Creatinine 0.50 L (0.52-1.04) mg/dL Estimated GFR 105.3 ML/MIN Glucose 91 (74-106) mg/dL POC Glucometer (74 to 106) mg/dL Calcium 9.2 (8.4-10.2) mg/dL Total Bilirubin 0.30 (0.2-1.3) mg/dL AST 20 (14-36) U/L ALT 9 (0-35) U/L Alkaline Phosphatase 72 (38-126) U/L Serum Total Protein 5.7 L (6.3-8.2) g/dL Albumin 3.0 L (3.5-5.0) g/dL Micro Results-Entire Visit: Microbiology 04/17/25 16:18 Blood Culture - Final Blood 04/17/25 15:31 Blood Culture - Final Blood 04/17/25 19:00 Urine Culture - Final Catherized NO GROWTH 04/17/25 12:25 Urine Culture - Final Urine, Void Klebsiella Pneumoniae Accuchecks Date 04/22/25 Date 04/22/25 Date 04/21/25 Date 04/21/25 Date 04/21/25 Time 04:16 Time 00:09 Time 21:02 Time 16:06 Time 12:00 - Radiology Exams Ordered Rad Exams-Entire Visit: Radiology Procedures Category Date Time Status ECHO W/2D AND DOPPLER [US] Routine Exams 04/21/25 09:53 Taken - Procedures and Test Procedures and Tests throughout Hospitalization: Therapy Orders & Screens 04/17/25 15:24 Respiratory Therapy Consult ONCE Comment: Reason For Exam: 04/17/25 16:33 Respiratory Therapy Consult ONCE Comment: Reason For Exam: Diagnosis: incarcerated hernia 04/17/25 17:29 Respiratory Therapy Assessment DAILY Comment: Diagnosis: incarcerated hernia 04/17/25 21:47 Oxygen Nasal Cannula 4 lpm Comment: Diagnosis: incarcerated hernia 04/18/25 17:23 Incentive Spirometry ROUTINE Comment: Diagnosis: incarcerated hernia 04/21/25 03:10 EKG STAT Comment: Diagnosis: incarcerated hernia 04/21/25 07:00 EKG REPEAT IN AM Comment: Diagnosis: incarcerated hernia Discharge Exam General Appearance: no apparent distress, alert, obese Neurologic Exam: alert, oriented x 3, cooperative, normal mood/affect, nml cerebellar function, sensation nml, No motor deficits Eye Exam: PERRL, EOMI, eyes nml inspection Ears, Nose, Throat Exam: normal ENT inspection, pharynx normal, moist mucous membranes Neck Exam: normal inspection, non-tender, supple, full range of motion Respiratory Exam: normal breath sounds, lungs clear, No respiratory distress Cardiovascular Exam: regular rate/rhythm, normal heart sounds Gastrointestinal/Abdomen Exam: soft, No tenderness, No mass Pelvic Exam: deferred Rectal Exam: deferred Back Exam: normal inspection, normal range of motion, No CVA tenderness, No vertebral tenderness Extremity Exam: normal inspection, normal range of motion Skin Exam: normal color, warm, dry Wound Assessment: Skin/Wound Assessment Wound/Incision Assessment Start: 04/17/25 20:59 Text: Status: Active Freq: Q4H Protocol: Document 04/22/25 08:00 [facility] (Rec: 04/22/25 08:28 [facility] [id number]) Wound/Incision Assessment Right Lower Abdomen Wound Assessment Shift Assessment Wound Type Incision Wound Stage Non Pressure Wound Dressing Status Dry & Intact General Appearance Well Approximated Primary Dressing Gauze Pads Secondary Dressing Tegaderm Comment Covered with 4x4 gauze & tegaderm. CDI - remains true Medial Abdomen Wound Assessment Shift Assessment Wound Type Incision Dressing Status Dry & Intact Primary Dressing bordered gauze Comment bruising noted surrounding incision, dressing CDI - remains true Wound Photo Photo Taken No Final Diagnosis/Problem List - Final Discharge Diagnosis/Problem (1) Incarcerated hernia Current Visit: Yes Status: Resolved Code(s): K46.0 - UNSP ABDOMINAL HERNIA WITH OBSTRUCTION, WITHOUT GANGRENE (2) UTI (urinary tract infection) Current Visit: Yes Status: Acute Code(s): N39.0 - URINARY TRACT INFECTION, SITE NOT SPECIFIED (3) Leukocytosis Current Visit: Yes Status: Acute Code(s): D72.829 - ELEVATED WHITE BLOOD CELL COUNT, UNSPECIFIED (4) Abdominal pain Current Visit: Yes Status: Acute Code(s): R10.9 - UNSPECIFIED ABDOMINAL PAIN (5) Nausea vomiting and diarrhea Current Visit: Yes Status: Acute Code(s): R11.2 - NAUSEA WITH VOMITING, UNSPECIFIED; R19.7 - DIARRHEA, UNSPECIFIED (6) Hypokalemia Current Visit: Yes Status: Acute Code(s): E87.6 - HYPOKALEMIA (7) COPD (chronic obstructive pulmonary disease) Current Visit: Yes Status: Chronic (8) Depression Current Visit: Yes Status: Chronic Code(s): F32.A - DEPRESSION, UNSPECIFIED (9) History of lung cancer Current Visit: Yes Status: Chronic Code(s): Z85.118 - PERSONAL HISTORY OF MALIGNANT NEOPLASM OF BRONCHUS AND LUNG (10) Smoker Current Visit: Yes Status: Chronic Code(s): F17.200 - NICOTINE DEPENDENCE, UNSPECIFIED, UNCOMPLICATED (11) Hyperlipidemia Current Visit: Yes Status: Chronic Code(s): E78.5 - HYPERLIPIDEMIA, UNSPECIFIED (12) Flutter-fibrillation Current Visit: Yes Status: Acute Assessment & Plan: 1) Incarcerated hernia Current Visit: Yes Status: Acute Assessment & Plan: - Pt pulled out NG- and refusing to be replaced. - GS to be made aware by nurse - CHARISMA Jo today. - NPO - No BM nor passing gas as of this AM - POD #2 from surgery - Continue ceftriaxone/Flagyl per GS recs - Surgery following - CBC, CMP reviewed - Narcotic pain control IV - BX x2 negative - SOFY drain x1 in place - Abd. binder in place 04/20 - POD #3 from surgery - Surgery aware NG is out and ok with this. - Awaiting surgery recs - Passing gas no BM - Hgb drop from 11.2 to 9.9 today- denies vomiting or any BM- nurse to make surgery aware. 04/21 - Hgb 10.0 today- stable- + bloody stool last night - Sandro ZAFAR to make GS aware of bloody stool and Hgb drop yesterday as phone call regarding this yesterday was never addressed. - GS recommend to advance diet and d/c sofy drain - + several loose stools last night - Change IV pain meds to PO - Stop IVF - CBC, CMP reviewed 04/22 - CBC, CMP reviewed - Continued BM's last night and yesterday - Denies Abd. pain - Has rody- will need GS to tell pt when they need removed - Per GS ok to d/c home w/o antibiotics or pain meds- can take OTC tylenol for pain - Passing gas and having BM's Code(s): K46.0 - UNSP ABDOMINAL HERNIA WITH OBSTRUCTION, WITHOUT GANGRENE (2) UTI (urinary tract infection) Current Visit: Yes Status: Acute Assessment & Plan: - UC + Klebsiella Pneumoniae - repeat UC negative - Continue IV antibiotics for abd surgery per GS recs 04/21 - Stop IVF Code(s): N39.0 - URINARY TRACT INFECTION, SITE NOT SPECIFIED (3) Leukocytosis Current Visit: Yes Status: Acute Assessment & Plan: - WBC 12.8- improving- trend 04/20 - resolved Code(s): D72.829 - ELEVATED WHITE BLOOD CELL COUNT, UNSPECIFIED (4) Abdominal pain Current Visit: Yes Status: Acute Assessment & Plan: - 2:2 hernia repain and bowel resection - CT Abd/Pelvis: 1. Picture suggestive of right-sided incarcerated inguinal hernia with omentum and small bowel content and subsequent small bowel obstruction. However, the appearance of two collapsed efferent and afferent bowel loops at the entry point of the hernia could result in a form of closed-loop obstruction, together with luminal dilatation and fatty stranding within the hernia sac ( however, there is normal enhancement of the bowel wall), which can suggest impending strangulation. Advise urgent surgical consultation. 2. A tiny fat-containing non-complicated periumbilical hernia. 3. Minimal circumferential uniform mural thickening of the pylorus is likely of inflammatory origin. Correlate clinically and further UGE if clinically warranted. 4. Multiple non-complicated colonic diverticulosis. 5. A small sliding hiatus hernia. 6. Fatty liver. 7. Bilateral emphysema with bilateral lower lobar more along right basal atelectatic changes, sequel of prior inflammatory process. 04/22 - Resolved Code(s): R10.9 - UNSPECIFIED ABDOMINAL PAIN (5) Nausea vomiting and diarrhea Current Visit: Yes Status: Acute Assessment & Plan: Assessment & Plan: -2/ to incarcerated hernia -Antiemetics as needed. -NG tube decompression -Fluid and electrolyte monitoring; replace as needed 04/20 - NG removed by pt on 04/19 - N/V/D resolved Code(s): R11.2 - NAUSEA WITH VOMITING, UNSPECIFIED; R19.7 - DIARRHEA, UNSPECIFIED (6) Hypokalemia Current Visit: Yes Status: Acute Assessment & Plan: - K+ 3.1, repeat after replacement- 3.3 - Repeat IV replacement ordered- trend 2 hours after IV dose x1 given - Tele- ICU- critical care - Check Mg+ in AM - 2:2 N/V/D 04/20 - K+ 3.1- replaced- trend 04/21 - resolved Code(s): E87.6 - HYPOKALEMIA (7) COPD (chronic obstructive pulmonary disease) Current Visit: Yes Status: Chronic Assessment & Plan: - Maintain at baseline 4L O2- 96% - Continue home meds - Incentive spirometry as tolerated. - Avoid sedatives that worsen respiratory drive. - Resume inhalers/nebulizers as appropriate. - Co2 33- trend- chronic 04/20 - Co2 36- trend - 4LNC at 93% 04/21 - Requiring 5lNC at bedtime- now on 4lNC at 94% - CO2 35 04/22 - CO2 35 - Consider OP eval for sleep apnea (8) Depression Current Visit: Yes Status: Chronic Assessment & Plan: -Continue home meds s/p surgery Code(s): F32.A - DEPRESSION, UNSPECIFIED (9) History of lung cancer Current Visit: Yes Status: Chronic Assessment & Plan: -s/p radiation 2023 Code(s): Z85.118 - PERSONAL HISTORY OF MALIGNANT NEOPLASM OF BRONCHUS AND LUNG (10) Smoker Current Visit: Yes Status: Chronic Assessment & Plan: - Advised cessation- education provided - Nicotine patch Code(s): F17.200 - NICOTINE DEPENDENCE, UNSPECIFIED, UNCOMPLICATED (11) Hyperlipidemia Current Visit: Yes Status: Chronic Assessment & Plan: - Continue statin Code(s): E78.5 - HYPERLIPIDEMIA, UNSPECIFIED (12) Flutter-fibrillation Current Visit: Yes Status: Acute Assessment & Plan: - New onset a-fib, a-flutter - Metoprolol and cardizem given without improvement - Cardiology consulted and placed on amiodarone gtt - ICU- Tele - Therapeutic lovenox- ok per GS- recommended by Cardiology - Discuss with CM in AM cost of Eliquis at D/C for pt. 04/22 - Amiodarone weaned off yesterday and stopped. - Today patient is in controlled A-fib. - Metoprolol started by cardiology at 25 mg daily- THEN INCREASED AT D/C TO 50 MG DAILY - Will continue to monitor heart rate and blood pressure today. - Echo shows that E EF is 55 to 60%. - Eliquis BID started and lovenox stopped - OP RX of Eliquis sent in. D/C plan of care time: > 40 minutes Code(s): I48.91 - UNSPECIFIED ATRIAL FIBRILLATION; I48.92 - UNSPECIFIED ATRIAL FLUTTER - Discharge Discharge Date: 04/22/25 Disposition: Home, Self-Care Condition: Good Prescriptions: New Apixaban [Eliquis] 5 mg PO BID 30 Days #60 tablet Continue Montelukast Sodium 10 mg [Singulair 10 MG] 10 mg PO DAILY Loratadine 10 mg [Claritin 10 mg] 10 mg PO DAILY Simvastatin 20Mg [Zocor 20Mg] 20 mg PO QPM Pantoprazole 20 mg [Protonix 20MG Tablet] 20 mg PO DAILY Tiotropium [place] Inhaler [Spiriva 18 Mcg/Cap Inhaler] 1 cap IH DINNER Theophylline Anhydrous [Theophylline ER] 300 mg PO BID Roflumilast [Daliresp] 500 mcg PO DAILY Potassium Chloride 40 meq PO DAILY Guaifenesin 600 mg ER [Mucinex 600MG ER Tabs] 1,200 mg PO BID Furosemide [Lasix] 20 mg PO DAILY Fluticasone Furoate 2 spray IH DAILY Fluoxetine HCl 60 mg PO DAILY Cholecalciferol (Vitamin D3) [Vitamin D3] 1 tab PO DAILY Buspirone HCl 15 mg PO TID Budesonide/Formoterol Fumarate [Budesonide-Formoterol 160-4.5] 2 puffs IH BID Azelastine/Fluticasone [Azelastin-Flutic 137-50Mcg Spr] 1 spray NS DAILY Albuterol Sulfate [Albuterol Sulfate Hfa] 2 puffs IH Q6HPRN PRN PRN Reason: Shortness Of Breath/Wheezing Albuterol 2.5 mg/3 ml Neb [Proventil 2.5 mg/3 ml Neb] 3 ml IH Q4HPRN PRN PRN Reason: Shortness Of Breath/Wheezing Ibuprofen 800 mg PO TIDPRN PRN PRN Reason: Pain Discontinued Clonidine HCl 0.1 mg [Clonidine 0.1 mg Tablet] 0.1 mg PO HS Additional Instructions: * You can take OTC tylenol for pain if needed, following label directions. Do not exceed max daily dose recommended. Follow up with: VALENTINA BERKOWITZ NP [NON-STAFF PHY W/O PRIVILEGES, UNKNOWN] - 05/30/25 3:40 pm PRANAV CORONA [Primary Care Provider, FAMILY [facility]ACTICE] - 05/03/25 11:00 am FARIDEH CUMMINGS MD [ACTIVE STAFF, GENERAL SURGERY]
[2025-04-22 12:06] VITALS: TEMP 98.4
[2025-04-22 16:06] VITALS: O2SAT 95
--- NOTE | 2025-04-22 18:02 | PCM.NOTE ---
Date and Time: 04/22/251758 Subjective Assessment: Denies any shortness of breath. Feeling good. Ready for discharge. Exam General:: no acute distress HEENT: EOMI, No JVD Cardiovascular: Regular Rate & Rhythm, s1 s2, no murmurs,rubs,gallops Respiratory:: clear to auscultation alis, No wheezing Objective Data Vital Signs: Vital Signs - 24 hr Temp Pulse Resp BP BP Pulse Ox 04/22/25 16:00 74 16 126/71 95 04/22/25 15:01 71 16 129/81 94 L 04/22/25 14:00 72 15 120/77 96 04/22/25 13:00 76 20 116/72 94 L 04/22/25 12:00 98.4 F 70 16 138/95 95 04/22/25 11:00 68 18 127/69 96 04/22/25 10:00 78 23 121/81 94 L 04/22/25 09:00 84 16 137/82 04/22/25 08:00 97.7 F 81 17 153/87 91 L 04/22/25 07:23 73 18 153/88 94 L 04/22/25 07:00 70 18 132/104 93 L 04/22/25 06:38 68 18 94 L 04/22/25 06:00 70 15 135/83 135/83 94 L 04/22/25 05:22 97 04/22/25 05:00 74 12 136/82 136/82 91 L 04/22/25 04:00 98.0 F 70 15 136/80 96 04/22/25 03:00 70 16 135/79 96 04/22/25 02:00 75 17 116/70 96 04/22/25 01:00 75 15 109/69 94 L 04/22/25 00:01 73 04/22/25 00:00 98.7 F 73 16 130/77 95 04/21/25 23:01 72 16 120/72 96 04/21/25 22:00 73 16 101/69 98 04/21/25 21:07 81 18 123/77 93 L 04/21/25 20:48 68 18 105/75 94 L 04/21/25 20:00 98.1 F 74 18 95 04/21/25 19:32 69 16 95 04/21/25 19:00 72 17 118/75 90 L 04/21/25 18:30 63 15 101/67 95 04/21/25 18:00 64 15 103/62 93 L Pain Assessment - Last Documented Pain Intensity 0 Pain Scale Used FLACC Intake and Output: Intake & Output 04/20/25 04/21/25 04/22/25 04/23/25 11:59 11:59 11:59 11:59 Intake Total 3670 1255 2098 480 Output Total 235 Balance 3435 1255 2098 480 Weight 71.3 kg 68.5 kg LAB: I have reviewed the Labs in [employer]. Lab Results: Lab Results-Last 24 Hours 04/17/25 04/21/25 04/22/25 Range/Units 19:00 21:02 00:09 WBC (3.98-10.04) x10^3/uL RBC (3.93-5.22) x10^6/uL Hgb (11.2-15.7) g/dL Hct (34.1-44.9) % MCV (79.4-94.8) fL MCH (25.6-32.2) pg MCHC (32.2-35.5) g/dL RDW (11.7-14.4) % Plt Count (182-369) x10^3/uL MPV (9.4-12.3) fL Gran % (34.0-71.1) % Immature Gran % (Auto) (0.001-0.429) % Nucleat RBC Rel Count (0.00-0.2) % Eos # (Auto) (0.04-0.36) x10^3/uL Immature Gran # (Auto) (0.001-0.031) x10^3u/L Absolute Lymphs (auto) (1.18-3.74) x10^3/uL Absolute Monos (auto) (0.24-0.86) x10^3/uL Absolute Nucleated RBC (0.00-0.012) x10^3u/L Lymphocytes % (19.3-51.7) % Monocytes % (4.7-12.5) % Eosinophils % (0.7-5.8) % Basophils % (0.1-1.2) % Absolute Granulocytes (1.56-6.13) x10^3/uL Basophils # (0.01-0.08) x10^3/uL Sodium (135-145) mmol/L Potassium (3.5-5.1) mmol/L Chloride (98-107) mmol/L Carbon Dioxide (22-30) mmol/L Anion Gap (5-15) MEQ/L BUN (7-17) mg/dL Creatinine (0.52-1.04) mg/dL Estimated GFR ML/MIN Glucose (74-106) mg/dL POC Glucometer 92 97 (74 to 106) mg/dL Calcium (8.4-10.2) mg/dL Total Bilirubin (0.2-1.3) mg/dL AST (14-36) U/L ALT (0-35) U/L Alkaline Phosphatase (38-126) U/L Serum Total Protein (6.3-8.2) g/dL Albumin (3.5-5.0) g/dL Surg PTH Specimen SEE COMMENTS 04/22/25 04/22/25 04/22/25 Range/Units 04:16 04:17 04:17 WBC 8.9 (3.98-10.04) x10^3/uL RBC 3.27 L (3.93-5.22) x10^6/uL Hgb 10.2 L (11.2-15.7) g/dL Hct 32.1 L (34.1-44.9) % MCV 98.2 H (79.4-94.8) fL MCH 31.2 (25.6-32.2) pg MCHC 31.8 L (32.2-35.5) g/dL RDW 13.2 (11.7-14.4) % Plt Count 200 (182-369) x10^3/uL MPV 10.4 (9.4-12.3) fL Gran % 68.5 (34.0-71.1) % Immature Gran % (Auto) 0.3 (0.001-0.429) % Nucleat RBC Rel Count 0.0 (0.00-0.2) % Eos # (Auto) 0.18 (0.04-0.36) x10^3/uL Immature Gran # (Auto) 0.03 (0.001-0.031) x10^3u/L Absolute Lymphs (auto) 1.64 (1.18-3.74) x10^3/uL Absolute Monos (auto) 0.89 H (0.24-0.86) x10^3/uL Absolute Nucleated RBC 0.00 (0.00-0.012) x10^3u/L Lymphocytes % 18.5 L (19.3-51.7) % Monocytes % 10.0 (4.7-12.5) % Eosinophils % 2.0 (0.7-5.8) % Basophils % 0.7 (0.1-1.2) % Absolute Granulocytes 6.08 (1.56-6.13) x10^3/uL Basophils # 0.06 (0.01-0.08) x10^3/uL Sodium 135 (135-145) mmol/L Potassium 3.5 (3.5-5.1) mmol/L Chloride 95 L (98-107) mmol/L Carbon Dioxide 35 H (22-30) mmol/L Anion Gap 8.9 (5-15) MEQ/L BUN 11 (7-17) mg/dL Creatinine 0.50 L (0.52-1.04) mg/dL Estimated GFR 105.3 ML/MIN Glucose 91 (74-106) mg/dL POC Glucometer 93 (74 to 106) mg/dL Calcium 9.2 (8.4-10.2) mg/dL Total Bilirubin 0.30 (0.2-1.3) mg/dL AST 20 (14-36) U/L ALT 9 (0-35) U/L Alkaline Phosphatase 72 (38-126) U/L Serum Total Protein 5.7 L (6.3-8.2) g/dL Albumin 3.0 L (3.5-5.0) g/dL Surg PTH Specimen Radiology Exams: Radiology Procedures Category Date Time Status ECHO W/2D AND DOPPLER [US] Routine Exams 04/21/25 09:53 Taken Tracing 1 Attestation: I have reviewed this EKG and interpreted as documented below. EKG Narrative: Telemetry: Sinus rhythm with occasional PACs. Sinus rate in upper 60s and 70s. Multi-Disciplinary Progress Notes: Multi-Disciplinary Progress Notes 04/22/25 10:30 (created 04/22/25 11:22) Case Management Note by Zoya Garsia S/W PATIENT- SHE CONTINUES TO DENY ANY NEW NEEDS AT TIME OF DC. SHE AMBULATED WELL WITH NURSING STAFF. SHE REPORTS HER CAN ASSIST HER AT HOME. SHE IS ALREADY SET UP WITH 24/7 OXYGEN WITH PORTABILITY AT HOME AND IS CURRENTLY ON HER HOME FLOW. SHE DECLINES HHC. S/W FAMILY PHARMACY- [facility] WAS COVERED 100% BY INSURANCE- [employer]O NOTIFIED Initialized on 04/22/25 11:22 - END OF NOTE 04/22/25 10:07 Nutrition Note by Mara Hernandez F/u Note: Diet resumed to HR with 75% po intake. Labs 04/22= hgb 10.2, hct 32.1, mcv 98.2, Cr 0.50, alb 3.0. adm weight 64.9kg; current weight 68.5 kg; +fluid balance. goal #1)maintain po intake >=75% Will con't to monitor and f/u prn. T.KALIN Hernandez Initialized on 04/22/25 10:07 - END OF NOTE Assessment & Plan (1) Atrial flutter, paroxysmal Current Visit: Yes Status: Acute Assessment & Plan: Remains in sinus rhythm. Tolerated increase in metoprolol succinate 25 mg daily. Will give an additional 25 mg of metoprolol succinate now and send home on 50 mg by mouth daily. Lovenox to be changed to Eliquis at discharge. Code(s): I48.92 - UNSPECIFIED ATRIAL FLUTTER (2) (HFpEF) heart failure with preserved ejection fraction Current Visit: Yes Status: Acute Qualifiers: Heart failure chronicity: acute on chronic Qualified Code(s): I50.33 - Acute on chronic diastolic (congestive) heart failure Assessment & Plan: Secondary to IV hydration. Now compensated. Will send home on furosemide.20 mg daily. Code(s): I50.30 - UNSPECIFIED DIASTOLIC (CONGESTIVE) HEART FAILURE (3) HTN (hypertension) Current Visit: Yes Status: Chronic Assessment & Plan: Her BP has risen compared to yesterday but remains under good control. Occasional mildly readings should be treated with her increased dose of metoprolol. Will not restart clonidine to avoid bradycardia if combined with metoprolol. Code(s): I10 - ESSENTIAL (PRIMARY) HYPERTENSION (4) Incarcerated hernia Current Visit: Yes Status: Resolved Assessment & Plan: Recovering. OK with surgery for discharge this evening. Code(s): K46.0 - UNSP ABDOMINAL HERNIA WITH OBSTRUCTION, WITHOUT GANGRENE - Encounter Encounter: The entirety of this encounter was performed via Telemedicine using audio and visual. Permission granted by patient. Case discussed with Alejandra Lang NP. Marty Crocker MD [facility] [phone]
[2025-04-22] MEDS: Toprol-Xl 25MG Tablets PO ONE (18:08)
[2025-04-22 18:19] VITALS: BP 122/92; PULSE 78; RESP 21
--- NOTE | 2025-04-25 13:56 | DS ---
DISCHARGE SUMMARY HISTORY: The patient underwent laparotomy with incarcerated hernia. She has made constant progress. Her incision was inspected. Her incision is excellent. Fatou are intact. There is no drainage. Her James-Amor drain was removed, I believe yesterday. Her drain site is satisfactory. She is sitting up in a chair. She is tolerating a regular diet. Her breathing is much better. She has been admitted to the hospitalists. Surgically, from a surgical perspective, she could be discharged, very specific diet instructions. She is to chew very well, not to eat any totally whole meat; sausage, hamburger, chicken nuggets would all be good. She is not to eat whole turkey or whole chicken breast, whole pork. She is to drink lots of liquids. She is returning Friday at the [facility] office to remove half her fatou. She looks like she is not requiring any pain medications now, so Tylenol for pain. No antibiotics are required. Her preadmission medications per the hospitalists. Schedule return to Dr. Nahid Mendes office, [place] [facility] Friday between 9 and 3 for partial staple removal and postop followup.
== END 2025-04-22 18:40 | disposition home or self-care (01) | DRG 330 ==
LOC: ED 12:21 → MED SURG 15:56 → ICU 19:00 → MED SURG 04-20 15:15 → ICU 04-21 09:45
PROVIDERS: ADMIT Internal Medicine; ATTEND Internal Medicine
PROC: 0DQV0ZZ Repair Mesentery, Open Approach (ICD-10-PCS; principal; 2025-04-17)
PROC: 0DB80ZZ Excision of Small Intestine, Open Approach (ICD-10-PCS; 2025-04-17)
PROC: 0DTU0ZZ Resection of Omentum, Open Approach (ICD-10-PCS; 2025-04-17)
DX: K46.0 Unspecified abdominal hernia with obstruction, without gangrene (principal); N39.0 Urinary tract infection, site not specified; Z59.811 Housing instability, housed, with risk of homelessness; B96.1 Klebsiella pneumoniae [K. pneumoniae] as the cause of diseases classified elsewhere; D72.829 Elevated white blood cell count, unspecified; R10.9 Unspecified abdominal pain; R11.2 Nausea with vomiting, unspecified; E87.6 Hypokalemia; J44.9 Chronic obstructive pulmonary disease, unspecified; F32.A Depression, unspecified; Z85.118 Personal history of other malignant neoplasm of bronchus and lung; F17.200 Nicotine dependence, unspecified, uncomplicated; E78.5 Hyperlipidemia, unspecified; I48.91 Unspecified atrial fibrillation; R19.7 Diarrhea, unspecified; Z79.899 Other long term (current) drug therapy; Z99.81 Dependence on supplemental oxygen